=== PATIENT | male | born 1955 | race Caucasian/White ===

== ENCOUNTER 2017-10-18 11:59 | Emergency (ER) | payer BC ==
--- OUTSIDE RECORDS SUMMARY | 2017-10-18 12:55 | XMS REPORT ---
:1955 External Reference #:[id number] Author Organization [facility] Address [address] [place] [address] Phone [phone] Care Team Providers Name Role Phone HCP given Primary Care Physician Unavailable Payers Type Date Identification Numbers Payment Provider Subscriber Commercial Policy Number: [id number] López Ind/Ppo/Hmo/Pos Sabrina Salter Eliseo Group Number: KIRANUS ROSAS PPO [address] [address] PayID: [id number] TIFFANIE Villasenor [id number] Medigap Part B Effective: Policy Number: López Salter 2006 [id number] Ind/Ppo/Hmo/Pos Eliseo Expires: 2013 PayID: [id number] [address] [address] TIFFANIE Villasenor [phone] Problems Date Description Provider Status Onset: 11/13/2013 Mixed hyperlipidemia Duncan Waite D.O. Active Onset: 11/13/2013 Gastroesophageal reflux disease Duncan Waite D.O. 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 Active Onset: 07/30/2014 Anxiety state Duncan Waite D.O. Active Onset: 03/08/2015 Sacral radiculopathy Duncan Waite D.O. Active Onset: 08/20/2015 Chronic rhinitis Duncan Waite D.O. 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 Work Status Currently Working Cigarette Use Former Cigarette Smoker 30 pack year history quit 2012 ETOH Use One Beer Daily ETOH Use daily 2 glasses Recreational Drug Use Denies Drug Use Smoking Patient is a former smoker 1ppd for 20years. quit 2013 Recreational Drug Use Denies Drug Use Daily Caffeine Consumes on average 3 cups of coffee per day Daily Caffeine Consumes on average 3 sodas per day Exercise Type/Frequency Exercises regularly Sun Exposure Uses sunscreen Seat Belt/Car Seat Seat Belt Use - Yes Currently Active Patient is currently sexually active Contraceptive Methods Vasectomy Allergies, Adverse Reactions, Alerts Date Description Reaction Status Severity Comments 06/05/2006 NKDA active Medications Medication Date Status Form Strength Qnty SIG Indications Ordering Provider Omeprazole 09/[address] 40mg 1 qd MD Cl Bupropion HCL 11/27 Active Tablets ER 150mg 90tab Take 1 F17.201 Sopchak, ER (Smoking 12HR s tablet qd to Michael Song) bid for D.O. smoking cessation TUNA Oil 05/01 Active two po daily Coq10 07/29 Active Capsules 90cap 1 by mouth Mariann s every day Antionette Song Multivitamin 06/05 Active 1 po qd Unknown (OTC) Fluconazole 04/28 Hx Tablets 200mg 14tab 2 tabs day Silco s one, 1 tab Kendell, - days 2-13 M.D. 05/14 for esophageal candidiasis Amoxicillin 01/25 Hx Tablets 875mg 20tab 1 by mouth R59.0 Silcoff, s twice a day Kendell, - x 10 days M.D. 02/04 for infection Amlodipine 05/02 Hx Tablets 5mg 90tab take 1 I10 Sopchak, Besylate s tablet by Duncan, - mouth once D.O. 09/23 daily for high blood pressure Augmentin 03/10 Hx Tablets 875-125mg 20tab 1 cap by J01.01 Mariann, s mouth twice Duncan, - a day D.O. 03/20 Buspirone HCL 08/19 Hx Tablets 7.5mg 60tab 1 cap by F41.9 Sopchak, s mouth twice Duncan, - a day D.O. 09/23 Fluticasone 08/19 Hx Suspension 50mcg/Act 16uni 2 sprays J31.0 Sopchak, Propionate ts into each Duncan, - nostril D.O. 05/01 every day /2016 Benzonatate 10/29 Hx Capsules 200mg 60cap 1 by mouth J06.9 Silcoff, s three times Kendell, - a day as M.D. 03/22 needed cough /2016 Augmentin 10/29 Hx Tablets 875-125mg 20tab 1 tab twice 465.8 Ike /2014 s a day with A. - food for 10 Klepack, 11/18 days M.D. Fluticasone 07/30 Hx Suspension 50mcg/Act 1unit 2 sprays 461.0 Sopchak, Propionate s into each Duncan, - nostril D.O. 09/04 twice a day for nasal congestion. tammy allergies. rinse mouth post Amoxicillin/Cla 07/30 Hx Tablets 875-125mg 20tab 1 by mouth 461.0 Sopchak, vulanate s twice a day Duncan, Potassium - D.O. 08/09 Ativan 07/30 Hx Tablets 0.5mg 30tab take 1 F41.9 Sopchak, s tablet by Duncan, - mouth up 3 D.O. / times per day as needed for anxiety may make you drowsy Robitussin 06/29 Hx Capsules 10-200mg Sopchak, Cough+Chest /2014 Duncan, Congestion DM - D.O. 10/29 Prednisone 06/29 Hx Tablets 10mg 10tab 2 tabs for 3 466.0 Sopchak, s days then 1 Duncan, - tab for 4 D.O. 07/06 days Trazodone HCL 06/25 Hx Tablets 50mg 60tab take 1-2 327.01 Sopchak, s tablets by Duncan, - mouth daily D.O. 07/25 at bedtime for trouble sleeping Clarithromycin 06/25 Hx Tablets 500mg 20tab 1 by mouth 466.0 Sopchak, s three times Duncan, - a day x 7 D.O. 07/05 Proair HFA 06/25 Hx Aerosol 108(90Bas 8.5un 1-2 puffs 466.0 Sopchak, e) its four times a Duncan, - mcg/Act day as D.O. 07/29 needed Ambien 11/14 Hx Tablets 5mg 30tab 1-2 tab by 327.01 Sopcha s mouth every Duncan, - night as D.O. 11/14 needed Rozerem 11/13 Hx Tablets 8mg 30tab take 1 327.01 Sopchak, s tablet by Duncan, - mouth daily D.O. 11/14 at bedtime as needed for trouble sleeping Magnesium 07/30 Hx Tablets Sopchak, Duncan, - D.O. 05/01 Zypan 02/27 Hx Digestive Sopchak, enzymes for Duncan, - heartburn. D.O. 10/28 Flonase 02/27 Hx Suspension 50mcg/Act 1unit Inhale 2 461.0 s sprays into Duncan, - nostril D.O. 10/28 daily in each nostril for nose inflammation Doxycycline 02/21 Hx Tablets 100mg 20tab 1 tab po bid E906.4 Silcojodi Hyclate s x 10 Yifan Rdz M.D. 10/30 Guaifenesin/Cod 02/21 Hx Solution 100-10mg/ 100ml 1-2 tsps 786.2 Bernardacojodi ei 5ML q4-6 hrs, Yifan Rdz M.D. 10/22 Simvastatin 03/08 Hx Tablets 40mg 90tab take one E78.2 s tablet by Duncan, - mouth every D.O. 09/23 day for high /2018 cholesterol Prednisone 03/06 Hx Tablets 20mg 21tab 1 bid s - 10/30 Prilosec OTC 06/09 Hx Capsules 20mg 60cap 1 po bid 530.81 [place], /2006 gold Bennett MD - 11/05 Chantix 06/07 Hx take as 305.1 troypack Starting directed. Sherman - 01/30 Augmentin 06/07 Hx Tablets 875mg;125 20tab 1 po bid 706.2 mg s - 06/20 Prevacid 06/07 Hx Capsules 30mg 30cap 1 qd for 530.81 klepack s reflux - 06/09 Wellbutrin SR 06/05 Hx Tablets 150mg 1 tablet 305.1 orally once - A day 06/12 [place] Fatty 06/05 Hx 1 PO qd Robert Jj Yifan Baker M.D. 05/01 Medications Administered in Office Medication Date Status Form Strength Qnty SIG Indications Ordering Provider SC/Im Administered Injection Sopchak, Injections 015 Duncan, D.O. Immunizations CPT Code Status Date Vaccine Lot # [id number] Given 05/02/2016 Influenza Virus Vaccine, Quadrivalent, Split, [id number] Preservative Free [id number] Given 07/30/2014 Hep A, Adult [id number] Given 03/02/2014 Adacel or Boostrix, TDaP [id number] 76100 Given 03/02/2014 Flu, Split Virus 3Yrs [id number] 79583 Given 02/27/2013 Flu, Split Virus 3Yrs [id number] 98940 Given 06/27/2004 Td Immunization Vital Signs Date Vital Result Comment 09/24/2017 BP Systolic 180 mmHg BP Diastolic 112 mmHg Weight 212.00 lb 02/08/2017 BP Systolic 130 mmHg BP Diastolic 88 mmHg Body Temperature 98.3 F 01/25/2017 BP Systolic 150 mmHg BP Diastolic 82 mmHg Body Temperature 98.0 F states he's had fever @ night Height 70 inches 5'10" Weight 198.00 lb BMI (Body Mass Index) 28.4 kg/m2 05/02/2016 BP Systolic 145 mmHg BP Diastolic 95 mmHg Height 71.25 inches 5'11.25" with shoes Weight 209.00 lb with shoes BMI (Body Mass Index) 28.9 kg/m2 08/20/2015 BP Systolic 158 mmHg BP Diastolic 80 mmHg BP Systolic Recheck 145 mmHg recheck ra BP Diastolic Recheck 88 mmHg recheck ra Weight 204.00 lb 03/08/2015 BP Systolic 145 mmHg BP Diastolic 82 mmHg Height 71.75 inches 5'11.75" with shoes Weight 208.00 lb with shoes BMI (Body Mass Index) 28.4 kg/m2 12/04/2014 BP Systolic 139 mmHg Lrg cuff BP Diastolic 75 mmHg Lrg cuff Heart Rate 68 /min Weight 207.00 lb w/shoes 10/29/2014 BP Systolic 145 mmHg BP Diastolic 80 mmHg Weight 214.00 lb with shoes 07/30/2014 BP Systolic 152 mmHg BP Diastolic 80 mmHg Heart Rate 65 /min Height 71.5 inches 5'11.50" shoes on Weight 214.00 lb shoes on BMI (Body Mass Index) 29.4 kg/m2 06/29/2014 BP Systolic 148 mmHg BP Diastolic 82 mmHg Body Temperature 99.1 F 06/25/2014 BP Systolic 130 mmHg BP Diastolic 78 mmHg O2 % BldC Oximetry 98 % on ra Body Temperature 99.0 F Weight 214.00 lb shoes on 03/02/2014 BP Systolic 158 mmHg BP Diastolic 90 mmHg BP Systolic Recheck 155 mmHg BP Diastolic Recheck 82 mmHg Height 70.75 inches 5'10.75" Weight 207.00 lb BMI (Body Mass Index) 29.1 kg/m2 11/13/2013 BP Systolic 140 mmHg BP Diastolic 78 mmHg Height 71 inches 5'11" Weight 205.00 lb BMI (Body Mass Index) 28.6 kg/m2 02/27/2013 BP Systolic 140 mmHg BP Diastolic 90 mmHg BP Systolic Recheck 110 mmHg BP Diastolic Recheck 65 mmHg 02/21/2013 BP Systolic 155 mmHg BP Diastolic 92 mmHg Heart Rate 78 /min Body Temperature 99.2 F Height 70.50 inches 5'10.50" Weight 206.00 lb BMI (Body Mass Index) 29.1 kg/m2 01/30/2007 BP Systolic 144 mmHg BP Diastolic 94 mmHg Height 72.25 inches 6'0.25"With Boots Weight 208.00 lb BMI (Body Mass Index) 28.0 kg/m2 06/09/2006 BP Systolic 136 mmHg BP Diastolic 88 mmHg Height 72.25 inches 6'0.25"With Boots Weight 210.50 lb BMI (Body Mass Index) 28.3 kg/m2 06/07/2006 BP Systolic 126 mmHg BP Diastolic 80 mmHg Height 72.25 inches 6'0.25"With Boots Weight 212.00 lb BMI (Body Mass Index) 28.6 kg/m2 06/05/2006 BP Systolic 140 mmHg BP Diastolic 94 mmHg Height 72.25 inches 6'0.25"With Boots Weight 209.50 lb With Boots BMI (Body Mass Index) 28.2 kg/m2 Results Test Date Test Result H/L Range Note Laboratory test 09/14/2017 Surgical Interface SEE RESULT BELOW 1 finding Order Laboratory test 04/24/2017 Surgical Interface SEE RESULT BELOW 2, 3 finding Order Lipid Profile 02/08/2017 Triglycerides 159 mg/dL 4 (Trig/Chol/HDL) Cholesterol 228 mg/dL 5 HDL Cholesterol 54.6 mg/dL 6 LDL Cholesterol 142 mg/dL 7 CBC Auto Diff 02/08/2017 White Blood Count 10.1 10^3/uL 3.5-10.8 Red Blood Count 4.39 10^6/uL 4.0-5.4 Hemoglobin 14.3 g/dL 14.0-18.0 Hematocrit 42 % 42-52 Mean Corpuscular Volume 96 fL High 80-94 Mean Corpuscular Hemoglobin 33 pg High 27-31 Mean Corpuscular HGB Conc 34 g/dL 31-36 Red Cell Distribution Width 13 % 10.5-15 Platelet Count 249 10^3/uL 150-450 Mean Platelet Volume 8 um3 7.4-10.4 Abs Neutrophils 7.1 10^3/uL 1.5-7.7 Abs Lymphocytes 2.0 10^3/uL 1.0-4.8 Abs Monocytes 0.8 10^3/uL 0-0.8 Abs Eosinophils 0.1 10^3/uL 0-0.6 Abs Basophils 0.1 10^3/uL 0-0.2 Abs Nucleated RBC 0.01 10^3/uL Granulocyte % 69.9 % 38-83 Lymphocyte % 19.3 % Low 25-47 Monocyte % 8.3 % 1-9 Eosinophil % 1.3 % 0-6 Basophil % 1.2 % 0-2 Nucleated Red Blood Cells % 0.1 Comp Metabolic Panel 02/08/2017 Sodium 136 mmol/L 133-145 Potassium 4.3 mmol/L 3.5-5.0 Chloride 102 mmol/L 101-111 Co2 Carbon Dioxide 29 mmol/L 22-32 Anion Gap 5 mmol/L 2-11 Glucose 103 mg/dL High 70-100 Blood Urea Nitrogen 11 mg/dL 6-24 Creatinine 0.95 mg/dL 0.67-1.17 BUN/Creatinine Ratio 11.6 8-20 Calcium 9.3 mg/dL 8.6-10.3 Total Protein 6.7 g/dL 6.4-8.9 Albumin 4.2 g/dL 3.2-5.2 Globulin 2.5 g/dL 2-4 Albumin/Globulin Ratio 1.7 1-3 Total Bilirubin 0.50 mg/dL 0.2-1.0 Alkaline Phosphatase 67 U/L 34-104 Alt 23 U/L 7-52 Ast 20 U/L 13-39 Egfr Non- 80.6 >60 Egfr 103.7 >60 8 Laboratory test finding 02/08/2017 TSH (Thyroid Stim Horm) 1.62 mcIU/mL 0.34-5.60 CBC Auto Diff 08/16/2015 White Blood Count 8.4 10^3/uL 3.5-10.8 Red Blood Count 4.44 10^6/uL 4.0-5.4 Hemoglobin 14.2 g/dL 14.0-18.0 Hematocrit 42 % 42-52 Mean Corpuscular Volume 94 fL 80-94 Mean Corpuscular Hemoglobin 32 pg High 27-31 Mean Corpuscular HGB Conc 34 g/dL 31-36 Red Cell Distribution Width 13 % 10.5-15 Platelet Count 232 10^3/uL 150-450 Mean Platelet Volume 8 um3 7.4-10.4 Abs Neutrophils 5.8 10^3/uL 1.5-7.7 Abs Lymphocytes 1.8 10^3/uL 1.0-4.8 Abs Monocytes 0.6 10^3/uL 0-0.8 Abs Eosinophils 0.1 10^3/uL 0-0.6 Abs Basophils 0.1 10^3/uL 0-0.2 Abs Nucleated RBC 0 10^3/uL Granulocyte % 69.8 % 38-83 Lymphocyte % 21.0 % Low 25-47 Monocyte % 7.5 % 1-9 Eosinophil % 1.0 % 0-6 Basophil % 0.7 % 0-2 Nucleated Red Blood Cells % 0 Comp Metabolic Panel 08/16/2015 Sodium 139 mmol/L 133-145 Potassium 4.0 mmol/L 3.5-5.0 Chloride 104 mmol/L 101-111 Co2 Carbon Dioxide 29 mmol/L 22-32 Anion Gap 6 mmol/L 2-11 Glucose 126 mg/dL High 70-100 Blood Urea Nitrogen 11 mg/dL 6-24 Creatinine 1.01 mg/dL 0.67-1.17 BUN/Creatinine Ratio 10.9 8-20 Calcium 9.3 mg/dL 8.6-10.3 Total Protein 6.3 g/dL Low 6.4-8.9 Albumin 4.2 g/dL 3.2-5.2 Globulin 2.1 g/dL 2-4 Albumin/Globulin Ratio 2.0 1-3 Total Bilirubin 0.30 mg/dL 0.2-1.0 Alkaline Phosphatase 57 U/L 34-104 Alt 30 U/L 7-52 Ast 20 U/L 13-39 Egfr Non- 75.4 >60 Egfr 96.9 >60 9 Laboratory test finding 08/16/2015 Hepatitis C Antibody Nonreactive Nonreactive 10 Lipid Profile 08/16/2015 Triglycerides 141 mg/dL 11 (Trig/Chol/HDL) Cholesterol 226 mg/dL 12 HDL Cholesterol 43.2 mg/dL 13 LDL Cholesterol 155 mg/dL 14 Laboratory test 08/16/2015 TSH (Thyroid Stim Horm) 1.43 ?IU/mL 0.34-5.60 15 finding Lipid Profile 11/11/2013 Triglycerides 108 mg/dL 16, 17 (Trig/Chol/HDL) Cholesterol 211 mg/dL 16, 18 HDL Cholesterol 46.3 mg/dL 16, 19 LDL Cholesterol 143 mg/dL 16, 20 Surgical Pathology 07/02/2006 Surgical Pathology <SEE 21 NOTE> Laboratory test 06/19/2006 TSH 1.26 MIU/ML 0.34-5.6 finding 0 Comp Metabolic 06/19/2006 One Over 1.11 Panel Creatinine Anion Gap 7.0 mmol/L 2-11 22 Albumin/Globulin Ratio 1.8 1-3 Albumin 4.2 GM/DL 3.6-5.4 Alkaline Phosphatase 61 U/L 39-117 Alt (SGPT) 48 U/L 17-63 Ast (Sgot) 33 U/L 12-42 BUN 9 mg/dL 6-24 Calcium 9.7 mg/dL 8.7-10.2 Chloride 102 mmol/L 101-111 Co2 (Carbon Dioxide) 31.0 mmol/L 22-32 Globulin 2.4 GM/DL 2-4 Glucose 109 mg/dL High 70-105 Potassium 3.8 mmol/L 3.5-5.0 Sodium 140 mmol/L 135-145 Bilirubin Total 0.7 mg/dL 0.4-1.5 Total Protein 6.6 GM/DL 6.2-8.1 BUN/Creatinine Ratio 10.0 8-20 Creatinine 0.9 mg/dL 0.5-1.4 CBC With Manual Diff 06/19/2006 RBC Morphology NORMAL White Blood Count 9.4 CUMM 4.8-10.8 Absolute Neutrophil Count 7.0 Hematocrit 43 % 42-52 Hemoglobin 14.6 g/dL 14.0-18.0 Eosenophil 1 % 0-6 Lymphocyte 17 % 5-47 Mean Corpuscular HGB Cone 34 g/dL 32-36 Mean Corpuscular Hemoglob 31 pg 27-31 Mean Corpuscular Volume 92 um3 80-94 Monocyte 7 % 0-13 Mean Platelet Volume 7.2 um3 Low 7.4-10.4 Platelet Count 273 CUMM 150-450 Polysegmented Neutrophil 75 % 38-83 Red Cell Count 4.73 CUMM 4.6-6.2 Redcell Distribution WDTH 12 % 10.5-15 Lead 06/19/2006 Lead 1.2 g/dL 0-25.0 23 Lead Specimen Type VENOUS Laboratory test 06/12/2006 PSA Screening 0.94 NG/ML 0.01-4.0 24, 25 finding Lipid Profile 06/12/2006 Cholesterol/HDL 6.66 AVERAGE High 1-4.97 24 (Trig/Chol/HDL) Ratio Cholesterol 253 mg/dL High Less Than 200 24, 26 Triglyceride 184 mg/dL 40-200 24 High Density Lipoprotein 38 mg/dL Low 40-60 24, 27 Low Density Lipoprotein 178 mg/dL High Less Than 100 24, 28 Laboratory test finding 06/08/2006 Culture Sensitivity MANY [COAG NEG S < SEE 29 NOTE> 1 SEE RESULT BELOW Name: JOHNATHON GOMES : [address]: Cl Nicolas MD Acct: [id number] Unit: [id number] AGE: 62 Location: ENDO Re09/14/17 SEX: M Status: DEP REF SPEC: [id number] NIKOLAY: 09/14/17-45 [facility] DR: Cl Nicolas MD REQ: [id number] RECD: 09/14/17 STATUS: TATE MASTERS DR: Karyna Tavares PA _ ORDERED: LEVEL 4 FINAL DIAGNOSIS Gastroesophageal junction, biopsy: -- Squamous and columnar mucosa with chronic inflammation and intestinal metaplasia. -- Dysplasia is absent. POST-OPERATIVE DIAGNOSIS EGD: esophagus ? improved erosive esophagitis ? biopsies x3; gastric ? normal ; duodenum ? normal GROSS DESCRIPTION The specimen is received in formalin labeled, GE Junction Biopsies, and consists of two acharya-pink irregular soft tissue fragments measuring 0.2 x 0.1 x 0.1 cm and 0.3 x 0.3 x 0.2 cm which are submitted entirely in one cassette. Signed by and Reported on: Geri Villanueva MD 09/18/17 1025 END OF REPORT DEPARTMENT OF PATHOLOGY, [address] [place] [address] Ronald Lorenzana M.D. Director [facility] # [id number] 2 [id number] Pt of [place], referral ordered by [place], pt has apt 05/03/17. SL 3 SEE RESULT BELOW Name: JOHNATHON GOMES : [address]: Cl Nicolas MD Acct: [id number] Unit: [id number] AGE: 62 Location: [facility] Re04/24/17 SEX: M Status: DEP REF SPEC: [id number] NIKOLAY: 04/24/17-1520 [facility] DR: Cl Nicolas MD REQ: [id number] RECD: 04/25/17-1153 STATUS: TATE MASTERS DR: Duncan Waite DO _ ORDERED: LEVEL 4 COMMENTS: [id number] FINAL DIAGNOSIS Gastroesophageal junction, biopsy: -- Benign squamous mucosa with mild erosive changes and yeast forms, compatible with Bridget. CLINICAL HISTORY Gastroesophageal reflux disease POST-OPERATIVE DIAGNOSIS Esophagus ? Grade B/C erosive esophagitis biopsied, large hiatal hernia; stomach and duodenum ? normal. Conclusions/Plan: Start proton pump inhibitor GROSS DESCRIPTION The specimen is received in formalin labeled, Biopsies GE Junction, and consists of a 0.7 x 0.3 x 0.2 cm acharya-white irregular soft tissue fragment. No other tissue is identified within the container. Entirely submitted, one cassette. Signed (signature on file) Geri Villanueva MD 08/08 1149 END OF REPORT * ML=Testing performed at Main Lab DEPARTMENT OF PATHOLOGY, [address] [place] [address] Ronald Lorenzana M.D. Director [facility] # [id number] 4 Desirable: <150 Borderline High: 150-199 High: 200-499 Very High: >500 5 Desirable: <200 Borderline High: 200-239 High: >239 6 Low: <40 Desirable: 40-60 High: >60 7 Desirable: <100 Near Optimal: 100-129 Borderline High: 130-159 High: 160-189 Very High: >189 8 Because ethnic data is not always readily available, this report includes an eGFR for both -Americans and non- Americans. The National Kidney Disease Education Program (NKDEP) does not endorse the use of the MDRD equation for patients that are not between the ages of 18 and 70, are , have extremes of body size, muscle mass, or nutritional status, or are non- or non-. According to the National Kidney Foundation, irrespective of diagnosis, the stage of the disease is based on the level of kidney function: Stage Description GFR(mL/min/1.73 m(2)) 1 Kidney damage with normal or decreased GFR 90 2 Kidney damage with mild decrease in GFR 60-89 3 Moderate decrease in GFR 30-59 4 Severe decrease in GFR 15-29 5 Kidney failure <15 (or dialysis) 9 Because ethnic data is not always readily available, this report includes an eGFR for both -Americans and non- Americans. The National Kidney Disease Education Program (NKDEP) does not endorse the use of the MDRD equation for patients that are not between the ages of 18 and 70, are , have extremes of body size, muscle mass, or nutritional status, or are non- or non-. According to the National Kidney Foundation, irrespective of diagnosis, the stage of the disease is based on the level of kidney function: Stage Description GFR(mL/min/1.73 m(2)) 1 Kidney damage with normal or decreased GFR 90 2 Kidney damage with mild decrease in GFR 60-89 3 Moderate decrease in GFR 30-59 4 Severe decrease in GFR 15-29 5 Kidney failure <15 (or dialysis) 10 FASTING 11 Desirable <150 Borderline high 150-199 High 200-499 Very High >500 12 Desirable <200 Borderline high 200-239 High >239 13 Low <40 Desirable: 40-60 High: >60 14 Desirable: <100 mg/dL Near Optimal: 100-129 mg/dL Borderline High: 130-159 mg/dL High: 160-189 mg/dL Very High: >189 mg/dL 15 FASTING 16 PT IS FASTING 17 Desirable <150 Borderline high 150-199 High 200-499 Very High >500 18 Desirable <200 Borderline high 200-239 High >239 19 Low <40 Desirable: 40-60 High: >60 20 Desirable <100 Near Optimal 100-129 Borderline high 130-159 High 160-189 Very High >189 21 ---- RUN DATE: 07/03/06 [facility] LIVE PAGE 1 RUN TIME: 1414 Specimen Inquiry RUN USER: INTERFACE [id number] JOHNATHON GOMES/Santhosh <REG REF 07/02> ([id number]) Lucia Gordillo MD -- Specimen: [id number] Spec Date: 07/02/[address]: Cl puente MD Spec Type: SURGICAL P Received: 07/02/06-1315 Copies to: Thai Wyatt DO SPECIMEN 1) ESOPHAGOGASTRIC JUNCTION BIOPSY 2) COLON POLYP AT 25 CM. HISTORY CLINICAL INFORMATION: Patient for screening colonoscopy with negative fam lidia history of colon cancer or polyps with history of chronic gastroesophageal refl ux disease GROSS DESCRIPTION 1) The specimen is received in formalin labelled Johnathon Thai Gomes, Biopsy EG Junction, and consists of soft acharya tissue fragment measuring 0.5 x 0.2 x 0.1 cm. Submitted entirely, one cassette. 2) The specimen is received in formalin labelled Johnathon Gomes, Colon Polyp at 25 cm., and consists of a acharya, soft tissue fragment measuring 0.3 x 0.2 x 0.2 cm. Submitted entirely, one cassette. DIAGNOSIS 1) Esophagogastric junction, biopsy - A) Squamous mucosa with features of mild reflux esophagitis. B) No glandular component identified. 2) Colon, polyp at 25 cm., biopsy - Hyperplastic polyp. Signed Electronically by: RONALD LORENZANA MD 07/03/06 -- -- DEPARTMENT OF PATHOLOGY, [address] [place] [address], [place] [address] [facility] Permit #[id number] Ike Shultz II, M.D. Director Ronald Lorenzana M.D. Housekeeping Room Attendant D irector -- 22 Anion gap measurement may be of limited value in the presence of any alkalosis, especially in a combined acid base disorder. . 23 REFERENCE RANGE FOR CHILDREN LESS THAN 6 YRS OF AGE: CDC CLASS* BLOOD LEAD CONCENTRATION (MCG/DL) I LESS THAN OR EQUAL TO 9 IIA 10 - 14 IIB 15 - 19 III 20 - 44 IV 45 - 69 V GREATER THAN OR EQUAL TO 70 *REFER TO CURRENT CDC GUIDELINES FOR COMMENTS AND INTERVENTIONS RECOMMENDED FOR EACH CLASS. CERTIFICATE OF BLOOD LEAD TESTING THIS IS TO CERTIFY THAT THE ABOVE NAMED PATIENT HAS BEEN TESTED FOR BLOOD LEAD. TESTING WAS PERFORMED BY [facility] WHICH IS LICENSED BY [facility] TO PERFORM BLOOD LEAD TESTING. THIS CERTIFICATE IS PROVIDED A SERVICE TO OUR CLIENTS AND THEIR PATIENTS WHO MAY BE REQUIRED TO PRODUCE DOCUMENTATION OF BLOOD LEAD TESTING. . 24 FASTING 25 * SERUM LEVELS OF PSA MEASURED USING THE NATE MARIANO ACCESS HYBRITECH IMMUNOASSAY SHOULD NOT BE INTERPRETED ABSOLUTE EVIDENCE OF THE PRESENCE OR ABSENCE OF DISEASE. THE PSA VALUE SHOULD BE USED IN CONJUNCTION WITH OTHER PERTINENT CLINICAL DIAGNOSTIC PROCEDURES. 26 Classification: High . 27 Classification: Low . 28 CALCULATED LDL APPROXIMATES THE VALUE OF A DIRECT LDL MEASUREMENT. Classification: High . 29 MANY [COAG NEG STAPHYLOCOCCUS] - MULTIPLE VARIANTS; NO FURTHER WORKUP COAG NEG STAPHYLOCOCCUS Procedures Date CPT Code Description Status 06/29/2014 09056 SC/Im Injections Completed 05/24/2012 Colonoscopy Completed 01/30/2007 08229 Bronchospasm Evaluation Pre & Post Completed 01/30/2007 87980 Bronchospasm Evaluation Pre & Post Completed 06/20/2006 26979 Excise Benign Lesion 1.1-2CM Trunk/Arm/Leg Completed 06/15/2006 28347 X-Ray Chest Two Views Completed 06/07/2006 99656 Remove Impact Cerumen Requiring Instrument, Unilateral Completed 06/05/2006 52770 I & D Abscess Simple Completed Encounters Type Date Location Provider CPT E/M Dx Office Visit 09/24/2017 10:20a Main Office Kia Brantley.A. 48300 M79.605 M54.5 I10 Office Visit 02/08/2017 8:40a Main Office Kia Brantley.AIdalia 17667 R59.0 R11.2 J32.9 G47.01 F17.201 E78.00 Office Visit 01/25/2017 3:00p Main Office Kia Brantley.A. 74048 J01.90 R59.0 B30.9 I10 Office Visit 05/02/2016 8:55a Main Office Duncan Waite D.O. 32914 I10 Z00.01 Z23 Z41.8 Office Visit 08/20/2015 10:45a Main Office Duncan Waite D.O. 68678 F41.9 G47.01 K21.9 J31.0 Office Visit 03/08/2015 9:45a Main Office Duncan Waite D.O. 43085 F41.9 G47.01 E78.2 K21.9 Z00.01 M54.18 Office Visit 12/04/2014 9:15a Main Office Duncan Waite D.O. 30459 300.00 327.01 272.2 530.81 461.0 Office Visit 10/29/2014 9:00a Main Office Ema Womack RPA-Soren 45927 465.8 473.8 528.9 Office Visit 07/30/2014 8:30a Main Office Duncan Waite D.O. 39236 327.01 272.2 530.81 786.2 461.0 300.00 v05.3 v07.2 Office Visit 06/29/2014 1:15p Main Office Duncan Waite D.O. 69185 466.0 Office Visit 06/25/2014 12:55p Main Office Duncan Waite D.O. 26621 327.01 272.2 466.0 786.2 Office Visit 03/02/2014 9:45a Main Office Duncan Waite D.O. 48242 272.2 V70.0 V06.1 V04.81 V07.2 V76.44 Office Visit 11/13/2013 8:45a Main Office Duncan Waite D.O. 24712 272.2 530.81 719.42 327.01 Office Visit 02/27/2013 10:30a Main Office Duncan Waite D.O. 24174 E906.4 461.0 272.2 V04.81 V07.2 V70.0 Office Visit 02/21/2013 3:20p Main Office Harinder Brantley 80624 461.9 786.2 E906.4 780.60 Office Visit 01/30/2007 10:45a [place] [address] 519.11 519.11 519.11 519.11 Office Visit 06/20/2006 11:30a Main Office klemei 49784 706.2 Office Visit 06/15/2006 11:00a Main Office vincenzo 77237 530.81 706.2 305.1 272.8 780.8 Office Visit 06/09/2006 9:15a [place] [address] 530.81 706.2 Office Visit 06/07/2006 3:15p Main Office klemei 57454 305.1 600.00 V76.51 V77.91 380.4 Office Visit 06/05/2006 2:45p Main Office Kendell Jj M.D. 05929 706.2 796.2 305.1 Plan of Care Future Appointment(s):10/11/2017 9:00 am - Duncan Waite D.O. at Main Huhvmf4709/24/2017 - Harinder BrantleyM79.605 Pain in left legNew Xrays:X-Ray, Hips, 2 View With Pelvis - LeftX-Ray, Knee, Left, 4 Or More ViewsDoppler US, Venous, Lower Extremity, LeftComments:Biggest concern is that pt has DVT.M54.5 Low back painComments:Origin of pain is not clear.I10 Essential (primary) hypertensionComments:pt advised to report cp, change in angina , sob etContinue same meds with no change. Comply with diet and exercise. Lose weight and watch salt in diet. elevated reading today possibly due to pain
--- OUTSIDE RECORDS SUMMARY | 2017-10-18 12:55 | XMS REPORT ---
:1955 External Reference #:[id number] Author Organization [facility] Address [address] [place] [address] Phone [phone] Care Team Providers Name Role Phone HCP given Primary Care Physician Unavailable Payers Type Date Identification Numbers Payment Provider Subscriber Commercial Policy Number: [id number] Freedom Ind/Ppo/Hmo/Pos Sabrina Salter Eliseo Group Number: FREEDOM ROSAS PPO [address] [address] PayID: [id number] [place] [address] Medigap Part B Effective: Policy Number: Freedom Salter 2006 [id number] Ind/Ppo/Hmo/Pos Eliseo Expires: 2013 PayID: [id number] [address] [address] [place] [address] Problems Date Description Provider Status Onset: 11/13/2013 [...] 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 Work Status Currently Working Cigarette Use Former Cigarette Smoker 30 pack year history quit 2012 ETOH Use One Beer Daily ETOH Use daily 2 glasses recently having 2 rums daily. Recreational Drug Use Denies Drug Use Smoking [...] Form Strength Qnty SIG Indications Ordering Provider Colcrys 10/05 Active Tablets 0.6mg 60tab take 2 s immediately Duncan, then 1 1 D.O. hour later. then next day take 1 twice a day. Ibuprofen 10/04 Active Tablets 200mg as needed Omeprazole 09/[address] 40mg 1 qd MD Cl Bupropion HCL 11/27 Active Tablets ER 150mg 90tab Take 1 F17.201 Sopnayek, ER ( 12HR s tablet qd to Michael Song) bid for D.O. smoking cessation TUNA Oil 05/01 Active two po daily Coq10 07/29 Active Capsules 90cap 1 by mouth Sopchak s every day Jeremie SongOIdalia Multivitamin 06/05 Active 1 po qd Unknown (OTC) Fluconazole 04/28 Hx Tablets 200mg 14tab 2 tabs day Silcoff, s one, 1 tab Kendell, - days 2-13 M.D. 05/14 esophageal candidiasis Amoxicillin 01/25 Hx Tablets 875mg 20tab 1 by mouth R59.0 Silcoff, s twice a day Kendell, - x 10 days M.D. 10/15 for sinus /2016 infection Amlodipine 05/02 Hx Tablets 5mg 90tab take 1 I10 Sopchak, Besylate s tablet by Duncan, - mouth once D.O. 09/23 daily for high blood pressure Augmentin 03/10 Hx Tablets 875-125mg 20tab 1 cap by J01.01 Sopchak, s mouth twice Duncan, - a day D.O. 03/20 Buspirone HCL 08/19 Hx Tablets 7.5mg 60tab 1 cap by F41.9 Sopchak, s mouth twice Duncan, - a day D.O. 09/23 Fluticasone 08/19 Hx Suspension 50mcg/Act 16uni 2 sprays J31.0 Sopchak, Propionate ts into each Duncan, - nostril D.O. 05/01 every Benzonatate 10/29 Hx Capsules 200mg 60cap 1 by mouth J06.9 Silcoff, s three times Kendell, - a day as M.D. 03/22 needed cough Augmentin 10/29 Hx Tablets 875-125mg 20tab 1 tab twice 465.8 Ike /2015 s a day with A. - food [...] by Duncan, - mouth up 3 D.O. 04/28 times per day as needed for anxiety may make you drowsy Robitussin 06/29 Hx Capsules 10-200mg Sopchak, Cough+Chest Duncan, Congestion DM - D.O. 10/29 Prednisone 06/29 Hx Tablets 10mg 10tab 2 tabs for 3 466.0 Sopchak, s days then 1 Duncan, - tab for 4 D.O. Trazodone HCL 06/25 Hx Tablets 50mg 60tab take 1-2 327.01 Sopchak, s tablets by Duncan, - mouth daily D.O. 07/25 at bedtime for trouble sleeping Clarithromycin 06/25 Hx Tablets 500mg 20tab 1 by mouth 466.0 Sopchak, s three times Duncan, - a day x 7 D.O. 07/05 Proair HFA 06/25 Hx Aerosol 108(90Bas 8.5un 1-2 puffs 466.0 [facility] its four times a Duncan, - mcg/Act day as D.O. 07/29 needed Ambien 11/14 Hx Tablets 5mg 30tab 1-2 tab by 327.01 [facility], s mouth every Duncan, - night as D.O. 11/14 needed Rozerem 11/13 Hx Tablets 8mg 30tab take 1 327.01 Sopcha, s tablet by Duncan, - mouth daily D.O. 11/14 at bedtime as needed for trouble sleeping Magnesium 07/30 [facility], - [facility]. 05/01 Zypan 02/27 Hx Digestive enzymes for Duncan, - heartburn. D.O. 10/28 Flonase 02/27 Hx Suspension 50mcg/Act 1unit Inhale 2 461.0 [facility] sprays into Duncan, - nostril D.O. 10/28 daily in each nostril for nose inflammation Doxycycline 02/21 Hx Tablets 100mg 20tab 1 tab po bid E906.4 SilcoTerry zapataclate s x 10 Yifan Rdz M.D. 10/30 Guaifenesin/Cod 02/21 Hx Solution 100-10mg/ 100ml 1-2 tsps 786.2 Анна ei 5ML q4-6 hrs, Yifan Rdz M.D. 10/22 Simvastatin 03/08 Hx Tablets 40mg 90tab take one E78.2 Sopnayek, s tablet by Duncan, - mouth every D.O. 09/23 day for high /2018 cholesterol Prednisone 03/06 Hx Tablets 20mg 21tab 1 bid s - 10/30 Prilosec OTC 06/09 Hx Capsules 20mg 60cap 1 po bid 530.81 [place], gold Bennett MD - 11/05 Chantix 06/07 Hx take as 305.1 klepack Starting directed. Sherman - 01/30 Augmentin 06/07 Hx Tablets 875mg;125 20tab 1 po bid 706.2 mg s - 06/20 Prevacid 06/07 Hx Capsules 30mg 30cap 1 qd for 530.81 pa s reflux - 06/09 Wellbutrin SR 06/05 Hx Tablets 150mg 1 tablet 305.1 orally once - A day 06/12 [place] Fatty 06/05 Hx 1 PO qd Bernardacojodi, Acids Yifan Rdz M.D. 05/01 Medications Administered in Office Medication Date Status Form Strength Qnty SIG Indications Ordering Provider injection, Administered Injection Sopchak, kenalog, 10 mg 018 Duncan, D.O. SC/Im Administered Injection Sopchak, Injections 015 Duncan, D.O. Immunizations CPT Code Status Date Vaccine Lot # [id number] Given 05/02/2016 Influenza Virus Vaccine, Quadrivalent, Split, [id number] Preservative Free [id number] Given 07/30/2014 Hep A, Adult [id number] 89790 Given 03/02/2014 Adacel or Boostrix, TDaP [id number] 93653 Given 03/02/2014 Flu, Split Virus 3Yrs [id number] 53985 Given 02/27/2013 Flu, Split Virus 3Yrs [id number] Given 06/27/2004 Td Immunization Vital Signs Date Vital Result Comment 10/05/2017 BP Systolic 168 mmHg BP Diastolic 86 mmHg Weight 212.00 lb Per pt 09/24/2017 BP Systolic 180 mmHg BP Diastolic [...] Test Result H/L Range Note Laboratory test finding 10/05/2017 Uric Acid 5.5 mg/dL 4.4-7.6 Vitamin B12 348 pg/mL 180-914 1 Magnesium 2.1 mg/dL 1.9-2.7 TSH (Thyroid Stim Horm) 1.07 mcIU/mL 0.34-5.60 Laboratory test finding 10/05/2017 Body Fluid Crystals None Seen None Seen 2 Body Fluid Culture Bottles <pending> Gram Stain SEE RESULT BELOW 3 Laboratory test finding 10/02/2017 D Dimer Quantitative 201 ng/mL Less Than 230 4 Blood Urea Nitrogen BUN 9 mg/dL 6-24 Creatine Kinase 102 U/L 10-223 C Reactive Protein 14.81 mg/L High < 5.00 5 CBC Auto Diff 10/02/2017 White Blood Count 10.4 10^3/uL 3.5-10.8 Red Blood Count 4.43 10^6/uL 4.00-5.40 Hemoglobin 14.3 g/dL 14.0-18.0 Hematocrit 42 % 42-52 Mean Corpuscular Volume 95 fL High 80-94 Mean Corpuscular Hemoglobin 32 pg High 27-31 Mean Corpuscular HGB Conc 34 g/dL 31-36 Red Cell Distribution Width 14 % 10.5-15 Platelet Count 246 10^3/uL 150-450 Mean Platelet Volume 7.5 um3 7.4-10.4 Abs Neutrophils 7.4 10^3/uL 1.5-7.7 Abs Lymphocytes 1.9 10^3/uL 1.0-4.8 Abs Monocytes 0.9 10^3/uL High 0-0.8 Abs Eosinophils 0.1 10^3/uL 0-0.6 Abs Basophils 0.1 10^3/uL 0-0.2 Abs Nucleated RBC 0 10^3/uL Granulocyte % 70.8 % 38-83 Lymphocyte % 18.6 % Low 25-47 Monocyte % 8.6 % High 0-7 Eosinophil % 1.3 % 0-6 Basophil % 0.7 % 0-2 Nucleated Red Blood Cells % 0.1 Laboratory test finding 10/02/2017 Erythrocyte Sed Rate 25 mm/Hr High 0- 20 Lyme Western Blot 10/02/2017 Lyme Disease IgG Ab WB Negative Negative Lyme Disease IgG Bands Present p66,p41 kDa Lyme Disease IgM Ab WB Negative Negative Lyme Disease IgM Bands Present No bands detecte <SEE NOTE> kDa 6 Lyme Disease Interpretation See Comment 7 CBC Auto Diff 09/28/2017 White Blood Count 9.3 10^3/uL 3.5-10.8 Red Blood Count 4.35 10^6/uL 4.0-5.4 Hemoglobin 14.3 g/dL 14.0-18.0 Hematocrit 41 % Low 42-52 Mean Corpuscular Volume 94 fL 80-94 Mean Corpuscular Hemoglobin 33 pg High 27-31 Mean Corpuscular HGB Conc 35 g/dL 31-36 Red Cell Distribution Width 13 % 10.5-15 Platelet Count 254 10^3/uL 150-450 Mean Platelet Volume 7.6 um3 7.4-10.4 Abs Neutrophils 6.3 10^3/uL 1.5-7.7 Abs Lymphocytes 2.1 10^3/uL 1.0-4.8 Abs Monocytes 0.8 10^3/uL 0-0.8 Abs Eosinophils 0.1 10^3/uL 0-0.6 Abs Basophils 0 10^3/uL 0-0.2 Abs Nucleated RBC 0 10^3/uL Granulocyte % 67.7 % 38-83 Lymphocyte % 22.4 % Low 25-47 Monocyte % 8.1 % High 0-7 Eosinophil % 1.4 % 0-6 Basophil % 0.4 % 0-2 Nucleated Red Blood Cells % 0 Laboratory test 09/28/2017 Erythrocyte Sed Rate 20 mm/Hr 0-20 finding Laboratory test 09/14/2017 Surgical Interface Order SEE RESULT BELOW 8 finding Laboratory test 04/24/2017 Surgical Interface Order SEE RESULT BELOW 9 , 10 finding Lipid Profile 02/08/2017 Triglycerides 159 mg/dL 11 (Trig/Chol/HDL) Cholesterol 228 mg/dL 12 HDL Cholesterol 54.6 mg/dL 13 LDL Cholesterol 142 mg/dL 14 CBC Auto Diff 02/08/2017 White Blood Count [...] Egfr Non- 80.6 >60 Egfr 103.7 >60 15 Laboratory test 02/08/2017 TSH (Thyroid Stim Horm) 1.62 mcIU/mL 0.34- 5.60 finding Laboratory test 08/16/2015 TSH (Thyroid Stim Horm) 1.43 ?IU/mL 0.34-5.60 16 finding Lipid Profile 08/16/2015 Triglycerides 141 mg/dL 17 (Trig/Chol/HDL) Cholesterol 226 mg/dL 18 HDL Cholesterol 43.2 mg/dL 19 LDL Cholesterol 155 mg/dL 20 Laboratory test finding 08/16/2015 Hepatitis C Antibody Nonreactive Nonreactive 21 CBC Auto Diff 08/16/2015 White Blood Count [...] Egfr Non- 75.4 >60 Egfr 96.9 >60 22 Lipid Profile (Trig/Chol/HDL) 11/11/2013 Triglycerides 108 mg/dL 23, 24 Cholesterol 211 mg/dL 23, 25 HDL Cholesterol 46.3 mg/dL 23, 26 LDL Cholesterol 143 mg/dL 23, 27 Surgical Pathology 07/02/2006 Surgical Pathology <SEE 28 NOTE> Laboratory test 06/19/2006 TSH 1.26 MIU/ML 0.34-5.6 finding 0 Comp Metabolic 06/19/2006 One Over 1.11 Panel Creatinine Anion Gap 7.0 mmol/L 2-11 29 Albumin/Globulin Ratio 1.8 1-3 Albumin 4.2 GM/DL [...] 10.5-15 Lead 06/19/2006 Lead 1.2 g/dL 0-25.0 30 Lead Specimen Type VENOUS Laboratory test 06/12/2006 PSA Screening 0.94 NG/ML 0.01-4.0 31, 32 finding Lipid Profile 06/12/2006 Cholesterol/HDL 6.66 AVERAGE High 1-4.97 31 (Trig/Chol/HDL) Ratio Cholesterol 253 mg/dL High Less Than 200 31, 33 Triglyceride 184 mg/dL 40-200 31 High Density Lipoprotein 38 mg/dL Low 40-60 31, 34 Low Density Lipoprotein 178 mg/dL High Less Than 100 31, 35 Laboratory test finding 06/08/2006 Culture Sensitivity MANY [COAG NEG S < SEE 36 NOTE> 1 Normal Range 180 to 914 Indeterminate Range 145 to 180 Deficient Range <145 2 [id number] What is the body fluid source?: Synovial (Joint) Fluid 3 SEE RESULT BELOW Name: JOHNATHON GOMES: [address]: Duncan Waite DO Acct: [id number] Unit: [id number] AGE: 62 Location: [facility] Re10/05/17 SEX: M Status: REG REF SPEC: [id number] NIKOLAY: 10/05/17-[address] [facility] [address]: Duncan Waite DO REQ: [id number] RECD: 10/05/17 STATUS: COMP _ SOURCE: BODY FLUID SPDESC: ORDERED: Gram Stain COMMENTS: L KNEE SYNOVIAL FLUID Procedure Result Reported Site Gram Stain Final 10/05/17- 1533 ML 3+ Neutrophils 3+ Nucleated Cells No Organisms Seen BY CYSOSPIN SMEAR * ML - Main Lab . END OF REPORT DEPARTMENT OF PATHOLOGY, [address] [place] [address] Ronald Lorenzana M.D. Director [facility] # [id number] Please note: The following may produce a false positive D Dimer test: - Rheumatoid factor greater than 60 IU/ml - Plasma hemoglobin greater than 0.05 gm/dl - Bilirubin greater than 50 mg/dl - Lipids greater than 1000 mg/dl - FDP greater than 20 ug/ml 5 Acute inflammation: >10.00 6 No bands detected 7 Specific serologic response to B. burgdorferi infection is not detected, but cannot rule out early infection during which low or undetectable antibody levels to B. burgdorferi may be present. If clinically indicated, a new serum specimen should be submitted in 7-14 days. ADDITIONAL INFORMATION CDC criteria require >=5 bands for IgG or >=2 bands for IgM for the Immunoblot to be considered positive. Bands (e.g.,p41) may be detected in patients without Lyme disease, and patterns not meeting the CDC criteria should be interpreted with caution. Immunoblot should be ordered only on specimens that are positive or equivocal by a FDA-licensed Lyme disease antibody screening test (e.g., EIA). Test Performed by: [facility] [address] [place] [id number] 8 SEE RESULT BELOW Name: JOHNATHON GOMES : [address]: Cl Nicolas MD Acct: [id number] Unit: [id number] AGE: 62 Location: ENDO Re09/14/17 SEX: M Status: DEP REF SPEC: [id number] NIKOLAY: 09/14/17-09[address] [facility] [address]: Cl Nicolas MD REQ: [id number] RECD: 09/14/17123 STATUS: TATE MASTERS DR: Karyna Tavares PA [...] 1025 END OF REPORT DEPARTMENT OF PATHOLOGY, [address] [place] [address] Ronald Lornezana M.D. Director [facility] # [id number] Pt of MS, referral ordered by DL, pt has apt 05/03/17. SL 10 SEE RESULT BELOW Name: JOHNATHON GOMES : [address]: Cl Nicolas MD Acct: [id number] Unit: [id number] AGE: 62 Location: ENDOC Re04/24/17 SEX: M Status: DEP REF SPEC: [id number] NIKOLAY: 04/24/17-[address] [facility] [address]: Cl Nicolas MD REQ: [id number] RECD: 04/25/17-1153 STATUS: TATE MASTERS DR: Duncan Waite DO _ ORDERED: LEVEL 4 COMMENTS: [id number] FINAL DIAGNOSIS Gastroesophageal junction, biopsy: -- Benign [...] performed at Main Lab DEPARTMENT OF PATHOLOGY, [address] [place] [address] Ronald Lorenzana M.D. Director [facility] # [id number] 11 Desirable: <150 Borderline High: 150-199 High: 200-499 Very High: >500 12 Desirable: <200 Borderline High: 200-239 High: >239 13 Low: <40 Desirable: 40-60 High: >60 14 Desirable: <100 Near Optimal: 100-129 Borderline High: 130-159 High: 160-189 Very High: >189 15 Because ethnic data is not always readily [...] 15-29 5 Kidney failure <15 (or dialysis) 16 FASTING 17 Desirable <150 Borderline high 150-199 High 200-499 Very High >500 18 Desirable <200 Borderline high 200-239 High >239 19 Low <40 Desirable: 40-60 High: >60 20 Desirable: <100 mg/dL Near Optimal: 100-129 mg/dL Borderline High: 130-159 mg/dL High: 160-189 mg/dL Very High: >189 mg/dL 21 FASTING 22 Because ethnic data is not always readily [...] 15-29 5 Kidney failure <15 (or dialysis) 23 PT IS FASTING 24 Desirable <150 Borderline high 150-199 High 200-499 Very High >500 25 Desirable <200 Borderline high 200-239 High >239 26 Low <40 Desirable: 40-60 High: >60 27 Desirable <100 Near Optimal 100-129 Borderline high 130-159 High 160-189 Very High >189 28 ---- RUN DATE: 07/03/06 [facility] NMI LIVE PAGE 1 RUN TIME: 1414 Specimen Inquiry RUN USER: INTERFACE [id number] JOHNATHON GOMES/Santhosh <REG REF 07/02> ([id number]) Lucia Gordillo MD -- Specimen: [id number] Spec Date: 07/02/[address]: Cl puente MD Spec Type: SURGICAL P Received: 07/02/06-0125 Copies to: Thai CruzIdalia Edmundo SPECIMEN 1) ESOPHAGOGASTRIC JUNCTION BIOPSY 2) COLON POLYP AT 25 CM. HISTORY CLINICAL INFORMATION: Patient for screening colonoscopy with negative fam lidia history of colon cancer or polyps with history of chronic gastroesophageal refl ux disease GROSS DESCRIPTION 1) The specimen is received in formalin labelled Johnathon Schillingottoniel, Biopsy EG Junction, and consists of soft acharya tissue fragment measuring 0.5 x 0.2 x 0.1 cm. Submitted entirely, one cassette. 2) The specimen is received in formalin labelled Johnathon Schillingana liliaiesha, Colon Polyp at 25 cm., and consists [...] MD 07/03/06 -- -- DEPARTMENT OF PATHOLOGY, [address] [place] [address] [facility] Permit #[id number] Ike Shultz II, M.D. Director Ronald Lorenzana M.D. Technical Support Intern D irector -- 29 Anion gap measurement may be of limited value in the presence of any alkalosis, especially in a combined acid base disorder. . 30 REFERENCE RANGE FOR CHILDREN LESS THAN 6 [...] FOR BLOOD LEAD. TESTING WAS PERFORMED BY [facility] WHICH IS LICENSED BY [facility] TO PERFORM BLOOD LEAD TESTING. THIS CERTIFICATE IS PROVIDED A SERVICE TO OUR CLIENTS AND THEIR PATIENTS WHO MAY BE REQUIRED TO PRODUCE DOCUMENTATION OF BLOOD LEAD TESTING. . 31 FASTING 32 * SERUM LEVELS OF PSA MEASURED USING THE NATE MARIANO ACCESS HYBRITECH IMMUNOASSAY SHOULD NOT BE INTERPRETED ABSOLUTE EVIDENCE OF THE PRESENCE OR ABSENCE OF DISEASE. THE PSA VALUE SHOULD BE USED IN CONJUNCTION WITH OTHER PERTINENT CLINICAL DIAGNOSTIC PROCEDURES. 33 Classification: High . 34 Classification: Low . 35 CALCULATED LDL APPROXIMATES THE VALUE OF A DIRECT LDL MEASUREMENT. Classification: High . 36 MANY [COAG NEG STAPHYLOCOCCUS] - MULTIPLE VARIANTS; NO FURTHER WORKUP COAG NEG STAPHYLOCOCCUS Procedures Date CPT Code Description Status 06/29/2014 11469 SC/Im Injections Completed 05/24/2012 Colonoscopy Completed 01/30/2007 82608 Bronchospasm Evaluation Pre & Post Completed 01/30/2007 49431 Bronchospasm Evaluation Pre & Post Completed 06/20/2006 79367 Excise Benign Lesion 1.1-2CM Trunk/Arm/Leg Completed 06/15/2006 18158 X-Ray Chest Two Views Completed 06/07/2006 31465 Remove Impact Cerumen Requiring Instrument, Unilateral Completed 06/05/2006 28702 I & D Abscess Simple Completed Encounters Type Date Location Provider CPT E/M Dx Office Visit 10/05/2017 9:45a Main Office Duncan Waite D.O. 37360 M79.605 M54.5 I10 R60.0 M10.9 Office Visit 09/24/2017 10:20a Main Office Harinder Brantley 25633 M79.605 M54.5 I10 R60.0 Office Visit 02/08/2017 8:40a Main Office Paxton BrantleyAIdalia 16814 R59.0 R11.2 J32.9 G47.01 F17.201 E78.00 Office Visit 01/25/2017 3:00p Main Office Harinder Brantley 26417 J01.90 R59.0 B30.9 I10 Office Visit 05/02/2016 8:55a Main Office Duncan Waite D.O. 87501 I10 Z00.01 Z23 Z41.8 Office Visit 08/20/2015 10:45a Main Office Duncan Waite D.O. 75951 F41.9 G47.01 K21.9 J31.0 Office Visit 03/08/2015 9:45a Main Office Duncan Waite D.O. 13100 F41.9 G47.01 E78.2 K21.9 Z00.01 M54.18 Office Visit 12/04/2014 9:15a Main Office Duncan Waite D.O. 91019 300.00 327.01 272.2 530.81 461.0 Office Visit 10/29/2014 9:00a Main Office VuEma hutchinson, RPA-C 10443 465.8 473.8 528.9 Office Visit 07/30/2014 8:30a Main Office Duncan Waite D.O. 82807 327.01 272.2 530.81 786.2 461.0 300.00 v05.3 v07.2 Office Visit 06/29/2014 1:15p Main Office Duncan Waite D.O. 49748 466.0 Office Visit 06/25/2014 12:55p Main Office Duncan Waite D.O. 66147 327.01 272.2 466.0 786.2 Office Visit 03/02/2014 9:45a Main Office Duncan Waite D.O. 05985 272.2 V70.0 V06.1 V04.81 V07.2 V76.44 Office Visit 11/13/2013 8:45a Main Office Duncan Waite D.O. 73753 272.2 530.81 719.42 327.01 Office Visit 02/27/2013 10:30a Main Office Duncan Waite D.O. 69158 E906.4 461.0 272.2 V04.81 V07.2 V70.0 Office Visit 02/21/2013 3:20p Main Office Harinder Brantley 47841 461.9 786.2 E906.4 780.60 Office Visit 01/30/2007 10:45a [place] [address] 519.11 519.11 519.11 519.11 Office Visit 06/20/2006 11:30a Main Office kleparobert 26988 706.2 Office Visit 06/15/2006 11:00a Main Office kleparobert 65182 530.81 706.2 305.1 272.8 780.8 Office Visit 06/09/2006 9:15a [place] [address] 530.81 706.2 Office Visit 06/07/2006 3:15p Main Office kleparobert 34514 305.1 600.00 V76.51 V77.91 380.4 Office Visit 06/05/2006 2:45p Main Office Kendell Jj M.D. 43131 706.2 796.2 305.1 Plan of Care Future Appointment(s):10/11/2017 9:00 am - Duncan Waite D.O. at Main Lrnaoq0810/05/2017 - Duncan Waite D.O.M79.605 Pain in left legM54.5 Low back painI10 Essential (primary) lugbmrhzavkjT15.0 Localized algdiY71.9 Gout, unspecifiedFollow up:as scheduled
[2017-10-18 13:47] LABS: ABS Basophils 0.1 10^3/ul (0-0.2); ABS Eosinophils 0.1 10^3/ul (0-0.6); ABS Lymphocytes 2.6 10^3/ul (1.0-4.8); ABS Monocytes 0.8 10^3/ul (0-0.8); ABS Neutrophils 8.5 10^3/ul (1.5-7.7); ABS Nucleated RBC 0 10^3/ul; Eosinophil % 0.8 % (0-6); Hematocrit 43 % (42-52); Hemoglobin 14.7 g/dl (14.0-18.0); Lymphocyte % 21.6 % (25-47); Mean Corpuscular HGB Conc 34 g/dl (31-36); Mean Corpuscular Hemoglobin 32 pg (27-31); Mean Corpuscular Volume 95 fL (80-94); Mean Platelet Volume 6.7 um3 (7.4-10.4); Nucleated Red Blood Cells % 0; Platelet Count 214 10^3/ul (150-450); Red Blood Count 4.57 10^6/ul (4.00-5.40); Red Cell Distribution Width 13 % (10.5-15)
[2017-10-18 17:36] VITALS: BP 179/99
--- NOTE | 2017-10-18 17:59 | ED ---
Marvin Kc Angela, scribed for Johnathon Phoenix MD on 10/18/17 at 1439 . Lower Extremity - HPI Summary HPI Summary: This pt is a 62 y/o male presenting to [facility] c/o increased left knee pain and swelling today. Pt reports that about 1 month ago his left knee began to suddenly swell up. He had tests done and was also seen by vascular. His PCP, Dr. Waite, removed fluid from his left knee and was told he had gout. Pt was started on Colchicine for gout on September 04. He states the culture from this fluid was positive for Staph. Pt was placed on Doxycycline 2 days ago for Staph. He has taken 4 doses so far of Doxy, last one at 05:30 today. He reports his knee was getting better until he began these medications. Today pt developed crunching sharp pain on his left knee. Additionally he states he is not able to bear weight on left knee. He is only able to flex knee and straighten it, but cannot move knee from side to side or around. Pt had a temperature last night, none today. Currently he rates his pain 3/10 in severity. His pain is aggravated with ambulation, rating it 10/10 in severity. Denies recent cold symptoms. - History of Current Complaint Chief Complaint: EDExtremityLower Stated Complaint: LT KNEE INFECTION,+STAPH Time Seen by Provider: 10/18/17 14:12 Hx Obtained From: Patient Mechanism Of Injury: Other - no trauma Onset of Pain: Immediate Onset/Duration: Weeks Severity Currently: Mild Pain Intensity: 3 Pain Scale Used: 0-10 Numeric Timing: Lasting Weeks Location: Is Discrete @ - left knee Character Of Pain: Sharp Associated Signs And Symptoms: Positive: Swelling, Fever, Knee Pain Aggravating Factor(s): Ambulation Alleviating Factor(s): Rest Able to Bear Weight: No - Allergies/Home Medications Allergies/Adverse Reactions: Allergies Allergy/AdvReac Type Severity Reaction Status Date / Time DAIRY AdvReac Severe "MY BACK Uncoded 10/18/17 12:15 GOES OUT" Home Medications: Home Medications Cholecalciferol TAB* [Vitamin D TAB*] 1,000 unit PO DAILY 10/18/17 [History Confirmed 10/18/17] Colchicine* [Colcrys*] 0.6 mg PO BID 10/18/17 [History Confirmed 10/18/17] DOXYcycline CAP(*) [DOXYcycline 100MG CAP(*)] 100 mg PO BID 10/18/17 [History Confirmed 10/18/17] Enzymes,Digestive [Enzymatic Digestant] 1 each PO DAILY 10/18/17 [History Confirmed 10/18/17] Multivitamins/Minerals TAB* [Theragran/minerals TAB*] 1 tab PO DAILY 10/18/17 [ History Confirmed 10/18/17] Bartow-3 Fatty Acids (Nf) [Fish Oil (NF)] 1,000 mg PO DAILY 10/18/17 [History Confirmed 10/18/17] Omeprazole CAP* [Prilosec CAP* 20 MG] 40 mg PO DAILY 10/18/17 [History Confirmed 10/18/17] PMH/Surg Hx/FS Hx/Imm Hx Endocrine/Hematology History: Denies: Hx Diabetes Cardiovascular History: Denies: Hx Hypertension, Hx Pacemaker/ICD History: Denies: Hx Renal Disease Musculoskeletal History: Denies: Hx Rheumatoid Arthritis, Hx Osteoporosis Sensory History: Denies: Hx Hearing Aid Psychiatric History: Denies: Hx Panic Disorder - Surgical History Surgery Procedure, Year, and Place: appendix age 5 Infectious Disease History: No Infectious Disease History: Denies: Hx Clostridium Difficile, Hx Hepatitis, Hx Human Immunodeficiency Virus (HIV), Hx of Known/Suspected MRSA, Hx Shingles, Hx Tuberculosis, Hx Known/ Suspected VRE, Hx Known/Suspected VRSA, History Other Infectious Disease, Traveled Outside the [place] in Last 30 Days - Family History Family History: Negative for colon CA. Uncle: liver CA. - Social History Alcohol Use: Occasionally Alcohol Amount: 1 GLASS/DAY Substance Use Type: Reports: None Type: Cigarettes Amount Used/How Often: 1/2 ppd Length of Time of Smoking/Using Tobacco: 30 yrs Have You Smoked in the Last Year: Yes Review of Systems Positive: Fever - yesterday Negative: Other - cold symptoms Musculoskeletal: Other - left knee pain Positive: Edema - in left knee All Other Systems Reviewed And Are Negative: Yes Physical Exam - Summary Physical Exam Summary: Appearance: The patient is well-nourished in no acute distress and in no acute pain. Skin: The skin is warm and dry and skin color reflects adequate perfusion. HEENT: The head is normocephalic and atraumatic. The pupils are equal and reactive. The conjunctivae are clear and without drainage. Nares are patent and without drainage. Mouth reveals moist mucous membranes and the throat is without erythema and exudate. The external ears are intact. The ear canals are patent and without drainage. The tympanic membranes are intact. Neck: the neck is supple with full range of motion and non-tender. There are no carotid bruits. There is no neck vein distension. Respiratory: Chest is non-tender. Lungs are clear to auscultation and breath sounds are symmetrical and equal. Cardiovascular: Heart is regular rate and rhythm. There is no murmur or rub auscultated. The pulses are symmetrical and equal. Abdomen: The abdomen is soft and non-tender. There are normal bowel sounds heard in all four quadrants and there is no organomegaly palpated. Musculoskeletal: There is no back tenderness noted. There is good capillary refill. There is no calf tenderness elicited. LLE: left patella does not allot, but he does not relax his quads very well. Mildly swollen in appearance. Neurological: Patient is alert and oriented to person, place and time. The patient has symmetrical motor strength in all four extremities. Cranial nerves are grossly intact. Deep tendon reflexes are symmetrical and equal in all four extremities. Psychiatric: The patient has an appropriate affect and does not exhibit any anxiety or depression. Triage Information Reviewed: Yes Vital Signs On Initial Exam: Initial Vitals Temp Pulse Resp BP Pulse Ox 98.5 F 87 18 152/106 97 10/18/17 12:08 10/18/17 12:08 10/18/17 12:08 10/18/17 12:08 10/18/17 12:08 Vital Signs Reviewed: Yes Procedures - Procedure Summary Procedure Summary: I performed a left knee aspiration under aseptic conditions. He was prepped and draped with Betadine and the skin was numbed with 1% lidocaine. An 18- gauge needle was used to enter the joint and 5 cc of blood-tinged yellow fluid was obtained easily. He was very tender to any joint manipulation and I was unable to express any more fluid. He tolerated the procedure well. Diagnostics - Vital Signs Vital Signs Temp Pulse Resp BP Pulse Ox 10/18/17 13:07 98.3 F 77 18 142/99 96 10/18/17 12:08 98.5 F 87 18 152/106 97 - Laboratory Lab Results: Lab Results 06/10/18/17 10/18/17 Range/Units 13:35 13:35 13:35 WBC 12.0 H (3.5-10.8) 10^3/ul RBC 4.57 (4.00-5.40) 10^6/ul Hgb 14.7 (14.0-18.0) g/dl Hct 43 (42-52) % MCV 95 H (80-94) fL MCH 32 H (27-31) pg MCHC 34 (31-36) g/dl RDW 13 (10.5-15) % Plt Count 214 (150-450) 10^3/ul MPV 6.7 L (7.4-10.4) um3 Neut % (Auto) 70.7 (38-83) % Lymph % (Auto) 21.6 L (25-47) % Fleming % (Auto) 6.5 (0-7) % Eos % (Auto) 0.8 (0-6) % Baso % (Auto) 0.4 (0-2) % Absolute Neuts (auto) 8.5 H (1.5-7.7) 10^3/ul Absolute Lymphs (auto) 2.6 (1.0-4.8) 10^3/ul Absolute Monos (auto) 0.8 (0-0.8) 10^3/ul Absolute Eos (auto) 0.1 (0-0.6) 10^3/ul Absolute Basos (auto) 0.1 (0-0.2) 10^3/ul Absolute Nucleated RBC 0 10^3/ul Nucleated RBC % 0 Sodium 139 (135-145) mmol/L Potassium 3.8 (3.5-5.0) mmol/L Chloride 104 (101-111) mmol/L Carbon Dioxide 28 (22-32) mmol/L Anion Gap 7 (2-11) mmol/L BUN 12 (6-24) mg/dL Creatinine 1.02 (0.67-1.17) mg/dL Est GFR ( Amer) 89.5 (>60) Est GFR (Non-Af Amer) 74.0 (>60) BUN/Creatinine Ratio 11.8 (8-20) Glucose 107 H (70-100) mg/dL Lactic Acid 1.2 (0.5-2.0) mmol/L Calcium 9.8 (8.6-10.3) mg/dL Total Bilirubin 0.70 (0.2-1.0) mg/dL AST 25 (13-39) U/L ALT 51 (7-52) U/L Alkaline Phosphatase 60 (34-104) U/L C-Reactive Protein 5.95 (<8.01) mg/L Total Protein 7.4 (6.4-8.9) g/dL Albumin 4.4 (3.2-5.2) g/dL Globulin 3.0 (2-4) g/dL Albumin/Globulin Ratio 1.5 (1-3) Result Diagrams: 10/18/17 13:35 10/18/17 13:35 Lab Statement: Any lab studies that have been ordered have been reviewed, and results considered in the medical decision making process. Lower Extremity Course/Dx - Course Course Of Treatment: Mr. Gomes presented in no acute distress but clearly had left knee pain and tenderness to range of motion. He was afebrile with normal vital signs and his knee was only slightly swollen without any ballottement although he was unable to entirely relax. His white blood cell count was 12 with an ANC of 8.5. CRP was within normal limits. I performed a joint aspiration of his left knee under aseptic conditions and the result was unremarkable. I consulted Drs. Westbrook and Laureen and Dr. Westbrook came and saw him in the department. He does not appear to have an acute infectious joint and Dr. Westbrook will follow him in the office on Sunday. - Diagnoses Provider Diagnoses: Knee effusion, left - Physician Notifications Discussed Care Of Patient With: Nathanael Westbrook Time Discussed With Above Provider: 14:43 Instructed by Provider To: Other - I discussed pt care with Dr. Westbrook, orthopedist. Discharge - Sign-Out/Discharge Documenting (check all that apply): Discharge/Admit/Transfer - Discharge - Discharge Plan Condition: Stable Disposition: HOME Patient Education Materials: Swollen Knee Joint (ED) Referrals: Duncan Waite DO [Primary Care Provider] - Nathanael Westbrook MD [Medical Doctor] - (Follow up on 10/23/17.) Additional Instructions: Continue Doxycycline as prescribed. Please follow up with Dr. Westbrook, orthopedist, on Sunday10/23/17. RETURN TO THE ED FOR ANY WORSENING SYMPTOMS. - Billing Disposition and Condition Condition: STABLE Disposition: Home The documentation as recorded by the Marvin meade Angela accurately reflects the service I personally performed and the decisions made by me, Johnathon Phoenix MD.
--- NOTE | 2017-10-18 21:52 | CONS ---
CONSULTATION REPORT: DATE OF CONSULT: 10/18/17 ATTENDING PHYSICIAN: Nathanael Westbrook MD CHIEF COMPLAINT: Left knee pain. HISTORY OF PRESENT ILLNESS: Briefly, Johnathon Gomes is a 62-year-old male, who initially noticed knee pain about a month ago on the . He woke up, he was at a restaurant. He had a lot of swelling and pain, difficulty weightbearing. He underwent x-ray, which demonstrated some osteoarthritis. He had persistent pain. He underwent a knee aspiration around 2 weeks ago on , which was negative and a concern for gout. He has a history of rheumatoid arthritis, gout, and osteoarthritis. He was placed on colchicine. Five days later, the culture was negative until the day after that on 10/10/17, it was found to be positive for Staph capitis. He was then started on doxycycline approximately 2 days ago. Since then, he has had increasing pain. He reported some shaking chills yesterday with sweating through sheets. He did not check his temperature, he is currently afebrile. He has a catchy sharp pain in his knee. He limits his range of motion, he has pain with weightbearing. He still has some mild swelling. ED was concerned and reviewed that he has been on doxycycline now as well as colchicine. He has not been taking ibuprofen, although he has been just prescribed that in the past. He does not report any recent illnesses. No current fevers or chills. He is obviously very concerned. PAST MEDICAL HISTORY: Significant for rhinitis, sacral radiculopathy, anxiety, maxillary sinusitis, insomnia, GERD, hyperlipidemia, dysphagia. PAST SURGICAL HISTORY: Dental implants and EGDs. ALLERGIES: None. FAMILY HISTORY: Significant for uncle with liver cancer. The patient's parents both lived into their 90s. SOCIAL HISTORY: He is a former smoker. No tobacco or IV drug use. He is right - hand dominant and he lives with his . He is a community ambulator. He drinks alcohol daily. 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 REVIEW OF SYSTEMS: Significant for the above complaints; shaky chills last night, knee pain, swelling, catching sharp pain. No redness or warmth. Some pain with weightbearing. No shortness of breath, chest pain and no current numbness or tingling. He does have some high blood pressure today, otherwise remainder of the systems is negative. PHYSICAL EXAM: Temperature 98.3, pulse is 77, respiratory rate 18, 96% oxygen on room air, blood pressure 142/99. He is in no acute distress, sitting in the bed. He does move his knee and has a sharp stabbing pain. There is hardly any effusion. He is tender about the knee cap itself. His calf is soft and nontender. He is sensate to light touch grossly distally with brisk capillary refill. He is able to dorsiflex and plantarflex his ankle. He can flex his knee. Range of motion of his knee is from about 2 degrees to 110 degrees, stable to varus and valgus stress. EOMI. Chest: Clear. He is respiring comfortably. Pulse is regular rate and rhythm, but mildly tachycardic. DIAGNOSTIC STUDIES/LAB DATA: X-rays obtained previously demonstrate osteoarthritis, these were from 09/24/17 of the hip and the knee. Venous ultrasound demonstrated no history of blood clots, this was obtained on . He has other images like a lumbar spine MRI, which is obtained on 10/04/17, which has report that is significant for mild lumbar spondylosis. Labs obtained today. White blood cell count of 12.0, it is up from 10.4 on 10/02/17. ESR is pending, but the previous one was 25, again on 10/02/17. CRP is 5.95, which is down from 10/02/17. Synovial fluid was obtained, his white blood cell count is 239, red blood cells elevated, crystals none on both 10/18/17 and 10/05. He had a Lyme test from 10/02/17 that was negative and is pending again. ASSESSMENT AND PLAN: He has a left knee pain. Likely, this is an osteoarthritic type of flare. The knee was previously aspirated in the ER and the results are unremarkable. I did call the Infectious Disease doctor to ask about Staph capitis, which is likely a colonization as opposed to an actual infection. Blood cultures are still pending. We will continue following him from this point, I want him to follow up with me in the office on Sunday. If he is still having pain, we may consider steroid injections to see if this calms down his symptoms. He does have a history of rheumatoid arthritis as well as osteoarthritis. This was discussed with the patient at length and I will see him back in the office this coming week. [id number]/[facility] #: [id number] JOZEF
== END 2017-10-18 17:34 | disposition home or self-care (01) ==
LOC: ED 11:59
DX: M25.462 Effusion, left knee (principal); F17.210 Nicotine dependence, cigarettes, uncomplicated
CPT/HCPCS: 20610; 36415; 80053; 83605; 85025; 85652; 86140; 87040; 87070; 87205; 87476; 87640; 87641; 87798; 89051; 89060; 99282

== ENCOUNTER 2018-01-30 17:45 | Observation (INO) | payer BC ==
--- OUTSIDE RECORDS SUMMARY | 2018-01-30 18:25 | XMS REPORT ---
:1955 External Reference #:[id number] Author Organization [facility] Address [address] [place] [address] Phone [phone] Care Team Providers Name Role Phone Duncan Waite DO Care Team Information Obstetrics Specialist Unavailable Duncan Waite DO Primary Care Physician Unavailable Payers Type Date Identification Numbers Payment Provider Subscriber Commercial Policy Number: [id number] [employer] Sabrina Michel PayID: [id number] [address] [address] [place] [address] Problems Date Description Provider Status Onset: 01/02/2018 Allergic contact dermatitis due to Ronald Aguayo MD Active other agents Family History Date Family Member(s) Problem(s) Comments General Unknown Social History Type Date Description Comments Smoke-Free Home is not smoke-free Pets None Smoking Light tobacco smoker (10 or fewer cigarettes/day) 4 cigarettes daily Allergies, Adverse Reactions, Alerts Date Description Reaction Status Severity Comments 01/02/2018 NKDA active Medications Medication Date Status Form Strength Qnty SIG Indications Ordering Provider Ibuprofen Active Tablets 800mg Unknown Hydrocodone-Acet Active Tablets 5-325mg Silcoff, aminophen MD [place] Vital Signs Date Vital Result Comment 01/02/2018 BP Systolic 136 mmHg BP Diastolic 76 mmHg Height 69.5 inches 5'9.50" Weight 210.00 lb BMI (Body Mass Index) 30.6 kg/m2 Heart Rate 108 /min Respiratory Rate 16 /min Body Temperature 96.5 F O2 % BldC Oximetry 96 % Results Description No Information Procedures Description No Information Encounters Type Date Location Provider CPT E/M Dx Office Visit 01/02/2018 2:30p [place] [address] L23.89 Plan of Care Future Appointment(s):01/11/2018 11:30 am - MADELEINE Izaguirre at Swqbpy7401/09/2018 9:30 am - MADELEINE Izaguirre at Nqsdgp7001/07/2018 9:00 am - Injection 1 at [place] [id number]/2018 - Ronald Aguayo MDL23.89 Allergic contact dermatitis due to other agents
--- OUTSIDE RECORDS SUMMARY | 2018-01-30 18:25 | XMS REPORT ---
:1955 External Reference #:[id number] Author Organization [facility] Address [address] [place] [address] Phone [phone] Care Team Providers Name Role Phone Duncan Waite DO Care Team Information Electrical Test Technician Unavailable Duncan Waite DO Primary Care Physician Unavailable Payers Type Date Identification Numbers Payment Provider Subscriber Commercial Policy Number: [id number] [facility] López Michel PayID: [id number] [address] [address] [place] [address] Medigap Part B Policy Number: [id number] [facility] López Micheliesha PayID: [id number] [address] [address] [place] [address] Problems Date Description Provider Status Onset: 01/02/2018 [...] Tablets 800mg Unknown Hydrocodone-Acet Active Tablets 5-325mg demian Jj MD Vital Signs Date Vital Result Comment 01/09/2018 Height 69.5 inches 5'9.50" Weight 210.00 lb BMI (Body Mass Index) 30.6 kg/m2 Respiratory Rate 16 /min 01/02/2018 BP Systolic 136 mmHg BP Diastolic 76 mmHg Height 69.5 inches 5'9.50" Weight 210.00 lb BMI (Body Mass Index) 30.6 kg/m2 Heart Rate 108 /min Respiratory Rate 16 /min Body Temperature 96.5 F O2 % BldC Oximetry 96 % Results Description No Information Procedures Description No Information Encounters Type Date Location Provider CPT E/M Dx Office Visit 01/02/2018 2:30p [place] [address] L23.89 Plan of Care Future Appointment(s):01/11/2018 11:30 am - MADELEINE Izaguirre at [place]
--- OUTSIDE RECORDS SUMMARY | 2018-01-30 18:25 | XMS REPORT ---
:1955 External Reference #:[id number] Author Organization [facility] Address [address] [place] [address] Phone [phone] Care Team Providers Name Role Phone Duncan Waite DO Care Team Information Music Cataloguer Unavailable Duncan Waite DO Primary Care Physician Unavailable Payers Type Date Identification Numbers Payment Provider Subscriber Commercial Policy Number: [id number] [employer] Sabrina Michel PayID: [id number] [address] [address] [place] [address] Problems Date Description Provider Status Onset: 01/02/2018 [...] CPT E/M Dx Office Visit 01/02/2018 2:30p [place] [address] L23.89 Plan of Care Future Appointment(s):01/11/2018 11:30 am - MADELEINE Izaguirre at Dfmcbq2801/09/2018 9:30 am - MADELEINE Izaguirre at Wnbujg9701/07/2018 9:00 am - Injection 1 at [place] [id number]/2018 - Ronald Aguayo MDL23.89 Allergic contact dermatitis due to other agents
--- OUTSIDE RECORDS SUMMARY | 2018-01-30 18:25 | XMS REPORT ---
:1955 External Reference #:[id number] Author Organization [facility] Address [address] [place] [address] Phone [phone] Care Team Providers Name Role Phone Duncan Waite DO Care Team Information Director Of Government Sales Unavailable Duncan Waite DO Primary Care Physician Unavailable Payers Type Date Identification Numbers Payment Provider Subscriber Commercial Policy Number: [id number] [employer] Sabrina Michel PayID: [id number] [address] [address] [place] [address] Problems Description No Information Social History Description No Information Available Allergies, Adverse Reactions, Alerts Date Description Reaction Status Severity Comments 01/02/2018 NKDA active Medications Medication Date Status Form Strength Qnty SIG Indications Ordering Provider Ibuprofen Active Tablets 800mg Unknown Hydrocodone-Acet Active Tablets 5-325mg Bernardacojodi aminoashanti Rdz MD Vital Signs Date Vital Result Comment 01/02/2018 BP Systolic 136 mmHg BP Diastolic 76 mmHg Height 69.5 inches 5'9.50" Weight 210.00 lb BMI (Body Mass Index) 30.6 kg/m2 Heart Rate 108 /min Respiratory Rate 16 /min Body Temperature 96.5 F O2 % BldC Oximetry 96 % Results Description No Information Procedures Description No Information Plan of Care No Information Available
--- OUTSIDE RECORDS SUMMARY | 2018-01-30 18:25 | XMS REPORT | Continuity of Care Document ---
:1955 External Reference #:[id number] Author Name Duncan Waite D.O. Address [address] [place] [id number] Care Team Providers Name Role Phone HCP given Primary Care Physician Unavailable Payers Type Date Identification Numbers Payment Provider Subscriber Policy Number: [id number] [employer]/Ppo/Hmo/Pos Sabrina Gomes Group Number: [employer] P[employer] [address] [address] PayID: [id number] TIFFANIE Villasenor [address] Effective: Policy Number: [employer] Ind/Ppo/Hmo/Pos Rosemarie Eliseo 2006 [id number] Expires: 2013 PayID: [id number] [address] [address] TIFFANIE Villasenor [phone] Advance Directives Description No Information Available Problems Date Description Provider Status Onset: 11/13/2013 [...] Family Member(s) Problem(s) Comments Father Alcoholism Father Emotional Problems Father Heart Problems Father Stroke Father Prostate Cancer 1997 Father Gout Mother Alcoholism Mother Emotional Problems Mother High Blood Pressure Mother Hypercholesterolemia Mother Obesity Mother Thyroid Disease Onset: (age 53 Years) First Sister Breast Cancer post menopausal Social History Type Date Description Comments Sex Unknown Education High School Completed Marital Status Lives With 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 Recreational Drug Use Denies Drug Use Tobacco Use Start: Unknown Patient is a current smoker, smokes every day Recreational Drug Use Denies Drug Use Exercise Type/Frequency Exercises regularly Sun Exposure Uses sunscreen Seat Belt/Car Seat Seat Belt Use - Yes Currently Active Patient is currently sexually active Contraceptive Methods Vasectomy Allergies, Adverse Reactions, Alerts Description No Known Drug Allergies Medications Medication Date Status Form Strength Qnty SIG Indications Ordering Provider Colcrys 01/17 Active Tablets 0.6mg 60tab 1 twice a Sopchak, s day. Duncan D.O. Bupropion HCL 01/17 Active Tablets ER 150mg 90tab Take 1 F17.201 Sopchak, ER (Smoking 12HR s tablet daily Duncan, Det) for smoking D.O. cessation Hydrocodone-Maxim 11/23 Active Tablets 5-325mg 42tab 1 tablet Sopchak, taminophen s every 4 Duncan, hours as D.O. needed for severe pain Omeprazole 09/[address] 40mg 1 qd Maria Isabel MD Cl TUNA Oil 05/01 Active two po daily Coq10 07/29 Active Capsules 90cap 1 by mouth Billiek, s every day Duncan D.O. Multivitamin 06/05 Active 1 po qd Unknown (OTC) /2006 Doxycycline 10/16 Hx Capsules 100mg 42cap 1 by mouth Sopchak, Monohydrate s twice a day Duncan, - for 21 days. D.O. 11/06 Colcrys 10/05 Hx Tablets 0.6mg 60tab take 2 Sopchak, s immediately Duncan, - then 1 1 D.O. 11/04 hour later. then next day take 1 twice a day. Ibuprofen 10/04 Hx Tablets 200mg as needed - 11/22 Fluconazole 04/28 Hx Tablets 200mg 14tab 2 tabs day Sil s one, 1 tab Kendell, - days 2-13 M.D. 05/14 for esophageal candidiasis Amoxicillin 01/25 Hx Tablets 875mg 20tab 1 by mouth R59.0 Silcoff, s twice a day Kendell, - x 10 days M.D. 02/04 for sinus infection Bupropion HCL 11/27 Hx Tablets ER 150mg 90tab Take 1 F17.201 Sopchak, ER (Smoking 12HR s tablet qd to Duncan, Det) - bid for D.O. 11/22 smoking cessation Amlodipine 05/02 Hx Tablets 5mg 90tab take 1 [place]ak, Besylate s tablet by Duncan, - [...] Hx Suspension 50mcg/Act 16uni 2 sprays J31.0 Mariann, Propionate ts into each Duncan, - nostril D.O. 05/01 every Benzonatate 10/29 Hx Capsules 200mg 60cap 1 by mouth J06.9 Анна, s three times Kendell, - a day [...] 461.0 Sopchak, vulanate s twice a day Duncan Potassium - D.O. 08/09 Ativan 07/30 Hx Tablets 0.5mg 30tab take 1 F41.9 Sopcha, s tablet by Duncan, - mouth up 3 D.O. 04/28 times per day as needed for anxiety may make you drowsy Robitussin 06/29 Hx Capsules 10-200mg [place]ak, Cough+Chest Duncan, Congestion DM - D.O. 10/29 Prednisone 06/29 Hx Tablets 10mg 10tab 2 tabs for 3 466.0 Sopcha s days then 1 Duncan, - tab for 4 D.O. Trazodone HCL 06/25 Hx Tablets 50mg 60tab take 1-2 327.01 Sopcha, s tablets by Duncan, - mouth daily D.O. 07/25 at bedtime for trouble sleeping Clarithromycin 06/25 Hx Tablets 500mg 20tab 1 by mouth 466.0 Sopcha, s three times Duncan, - a day x 7 D.O. 07/05 Proair HFA 06/25 Hx Aerosol 108(90Bas 8.5un 1-2 puffs 466.0 [facility]) its four times a Duncan, - [...] 100mg 20tab 1 tab po bid E906.4 Silcoff, Hycl s x 10 Yifan Rdz M.D. 10/30 Guaifenesin/Cod 02/21 Hx Solution 100-10mg/ 100ml 1-2 tsps 786.2 Анна, ei 5ML q4-6 hrs, Yifan Rdz M.D. 10/22 Simvastatin 03/08 Hx Tablets 40mg 90tab take one E78.2 s tablet by Duncan, - mouth every D.O. 09/23 day for high cholesterol Prednisone 03/06 Hx Tablets 20mg 21tab 1 bid s - 10/30 Prilosec OTC 06/09 Hx Capsules 20mg 60cap 1 po bid 530.81 [place], s Sabrina MCALLISTER - 11/05 Chantix 06/07 Hx take as 305.1 vincenzo Starting directedIdalia Sherman - 01/30 Augmentin 06/07 Hx Tablets 875mg;125 20tab 1 po bid 706.2 ken mg s - 06/20 Prevacid 06/07 Hx Capsules 30mg 30cap 1 qd for 530.81 ken s reflux - 06/09 Wellbutrin SR 06/05 Hx Tablets 150mg 1 tablet 305.1 orally once - A day 06/12 [place] Fatty 06/05 Hx 1 PO qd Анна Acids Yifan Rdz M.D. 05/01 Medications Administered in Office Medication Date Status Form Strength Qnty SIG Indications Ordering Provider injection, Administered Injection Sopchak, kenalog, 10 mg 018 Duncan D.O. SC/Im Administered Injection Sopchak, Injections 015 Duncan, D.O. Immunizations CPT Code Status Date Vaccine Lot # [id number] Given 05/02/2016 Influenza Virus Vaccine, Quadrivalent, Split, [id number] Preservative Free [id number] Given 07/30/2014 Hep A, Adult [id number] 53503 Given 03/02/2014 Adacel or Boostrix, TDaP [id number] 06675 Given 03/02/2014 Flu, Split Virus 3Yrs [id number] 66462 Given 02/27/2013 Flu, Split Virus 3Yrs [id number] 59563 Given 06/27/2004 Td Immunization Vital Signs Date Vital Result Comment 01/29/2018 4:25pm BP Systolic 126 mmHg BP Diastolic 78 mmHg 01/17/2018 2:20pm BP Systolic 148 mmHg BP Diastolic 88 mmHg Weight 208.00 lb w/shoes 11/23/2017 2:34pm BP Systolic 142 mmHg BP Diastolic 90 mmHg Weight 208.00 lb with shoes 10/11/2017 8:51am BP Systolic 146 mmHg BP Diastolic 90 mmHg BP Systolic Recheck 153 mmHg rt arm/automatic cuff BP Diastolic Recheck 77 mmHg rt arm/automatic cuff Height 71 inches 5'11" with shoes Weight 212.00 lb with shoes BMI (Body Mass Index) 29.6 kg/m2 10/05/2017 10:01am BP Systolic 168 mmHg BP Diastolic 86 mmHg Weight 212.00 lb Per pt 09/24/2017 10:24am BP Systolic 180 mmHg BP Diastolic 112 mmHg Weight 212.00 lb 02/08/2017 8:35am BP Systolic 130 mmHg BP Diastolic 88 mmHg Body Temperature 98.3 F 01/25/2017 2:43pm BP Systolic 150 mmHg BP Diastolic 82 mmHg Body Temperature 98.0 F states he's had fever @ night Height 70 inches 5'10" Weight 198.00 lb BMI (Body Mass Index) 28.4 kg/m2 05/02/2016 8:53am BP Systolic 145 mmHg BP Diastolic 95 mmHg Height 71.25 inches 5'11.25" with shoes Weight 209.00 lb with shoes BMI (Body Mass Index) 28.9 kg/m2 08/20/2015 11:38am BP Systolic 158 mmHg BP Diastolic 80 mmHg BP Systolic Recheck 145 mmHg recheck ra BP Diastolic Recheck 88 mmHg recheck ra Weight 204.00 lb 03/08/2015 10:08am BP Systolic 145 mmHg BP Diastolic 82 mmHg Height 71.75 inches 5'11.75" with shoes Weight 208.00 lb with shoes BMI (Body Mass Index) 28.4 kg/m2 12/04/2014 9:13am BP Systolic 139 mmHg Lrg cuff BP Diastolic 75 mmHg Lrg cuff Heart Rate 68 /min Weight 207.00 lb w/shoes 10/29/2014 9:15am BP Systolic 145 mmHg BP Diastolic 80 mmHg Weight 214.00 lb with shoes 07/30/2014 8:43am BP Systolic 152 mmHg BP Diastolic 80 mmHg Heart Rate 65 /min Height 71.5 inches 5'11.50" shoes on Weight 214.00 lb shoes on BMI (Body Mass Index) 29.4 kg/m2 06/29/2014 1:15pm BP Systolic 148 mmHg BP Diastolic 82 mmHg Body Temperature 99.1 F 06/25/2014 12:53pm BP Systolic 130 mmHg BP Diastolic 78 mmHg O2 % BldC Oximetry 98 % on ra Body Temperature 99.0 F Weight 214.00 lb shoes on 03/02/2014 9:28am BP Systolic 158 mmHg BP Diastolic 90 mmHg BP Systolic Recheck 155 mmHg BP Diastolic Recheck 82 mmHg Height 70.75 inches 5'10.75" Weight 207.00 lb BMI (Body Mass Index) 29.1 kg/m2 11/13/2013 8:37am BP Systolic 140 mmHg BP Diastolic 78 mmHg Height 71 inches 5'11" Weight 205.00 lb BMI (Body Mass Index) 28.6 kg/m2 02/27/2013 10:15am BP Systolic 140 mmHg BP Diastolic 90 mmHg BP Systolic Recheck 110 mmHg BP Diastolic Recheck 65 mmHg 02/21/2013 3:37pm BP Systolic 155 mmHg BP Diastolic 92 mmHg Heart Rate 78 /min Body Temperature 99.2 F Height 70.50 inches 5'10.50" Weight 206.00 lb BMI (Body Mass Index) 29.1 kg/m2 01/30/2007 10:49am BP Systolic 144 mmHg BP Diastolic 94 mmHg Height 72.25 inches 6'0.25"With Boots Weight 208.00 lb BMI (Body Mass Index) 28.0 kg/m2 06/09/2006 9:04am BP Systolic 136 mmHg BP Diastolic 88 mmHg Height 72.25 inches 6'0.25"With Boots Weight 210.50 lb BMI (Body Mass Index) 28.3 kg/m2 06/07/2006 3:01pm BP Systolic 126 mmHg BP Diastolic 80 mmHg Height 72.25 inches 6'0.25"With Boots Weight 212.00 lb BMI (Body Mass Index) 28.6 kg/m2 06/05/2006 2:50pm BP Systolic 140 mmHg BP Diastolic 94 mmHg Height 72.25 inches 6'0.25"With Boots Weight 209.50 lb With Boots BMI (Body Mass Index) 28.2 kg/m2 Results Test Date Facility Test Result H/L Range Note Laboratory test 10/18/2017 [facility] C Reactive 5.95 mg/L <8.01 finding [phone] Protein Lactic Acid 1.2 mmol/L 0.5-2.0 1 Erythrocyte Sed Rate 15 mm/Hr 0-20 Blood Culture SEE RESULT BELOW 2 Comp Metabolic Panel 10/18/2017 [facility] Sodium 139 mmol/L 135- 145 [phone] Potassium 3.8 mmol/L 3.5-5.0 Chloride 104 mmol/L 101-111 Co2 Carbon Dioxide 28 mmol/L 22-32 Anion Gap 7 mmol/L 2-11 Glucose 107 mg/dL High 70-100 Blood Urea Nitrogen 12 mg/dL 6-24 Creatinine 1.02 mg/dL 0.67-1.17 BUN/Creatinine Ratio 11.8 8-20 Calcium 9.8 mg/dL 8.6-10.3 Total Protein 7.4 g/dL 6.4-8.9 Albumin 4.4 g/dL 3.2-5.2 Globulin 3.0 g/dL 2-4 Albumin/Globulin Ratio 1.5 1-3 Total Bilirubin 0.70 mg/dL 0.2-1.0 Alkaline Phosphatase 60 U/L 34-104 Alt 51 U/L 7-52 Ast 25 U/L 13-39 Egfr Non- 74.0 >60 Egfr 89.5 >60 3 CBC Auto Diff 10/18/2017 [facility] White Blood 12.0 10^3/uL High 3.5 -10.8 [phone] Count Red Blood Count 4.57 10^6/uL 4.00-5.40 Hemoglobin 14.7 g/dL 14.0-18.0 Hematocrit 43 % 42-52 Mean Corpuscular Volume 95 fL High 80-94 Mean Corpuscular Hemoglobin 32 pg High 27-31 Mean Corpuscular HGB Conc 34 g/dL 31-36 Red Cell Distribution Width 13 % 10.5-15 Platelet Count 214 10^3/uL 150-450 Mean Platelet Volume 6.7 um3 Low 7.4-10.4 Abs Neutrophils 8.5 10^3/uL High 1.5-7.7 Abs Lymphocytes 2.6 10^3/uL 1.0-4.8 Abs Monocytes 0.8 10^3/uL 0-0.8 Abs Eosinophils 0.1 10^3/uL 0-0.6 Abs Basophils 0.1 10^3/uL 0-0.2 Abs Nucleated RBC 0 10^3/uL Granulocyte % 70.7 % 38-83 Lymphocyte % 21.6 % Low 25-47 Monocyte % 6.5 % 0-7 Eosinophil % 0.8 % 0-6 Basophil % 0.4 % 0-2 Nucleated Red Blood Cells % 0 Lyme Disease PCR 10/18/2017 [facility] B burgdorferi PCR, Negative Negative [phone] Blood B mayonii PCR Negative Negative B garinii/B afzelii PCR Negative Negative Lyme Disease PCR Comment See Comment 4 Tick-Borne Panel PCR 10/18/2017 [facility] Babesia microti Negative Negative Blood [phone] PCR Babesia ducani Negative Negative Babesia divergens/Mo-1 Negative Negative 5 Anaplasma phagocytophilum Negative Negative Ehrlichia chaffeensis Negative Negative Ehrlichia ewingii/canis Negative Negative Ehrlichia muris-like Negative Negative 6 B. miyamotoi PCR, B Negative Negative 7 Body Fluid Cell 10/18/2017 [facility] Body Fluid Source Synovial Fluid Count [phone] Body Fluid Appearance Cloudy Body Fluid Color [place] Body Fluid Volume 3 mL Body Fluid WBC 239 /mcL 8 Body Fluid RBC 88229 /mcL Body Fluid Neutrophils 48 % Body Fluid Lymph 39 % Body Fluid [place] 12 % Body Fluid Basophils 1 % Body Fluid Total Cells Counted 100 Fluid Reviewed By MD (SEE NOTE) 9 Body Fluid C&S 10/18/2017 [facility] Body Fluid Cult SEE RESULT 10 [phone] Gram Stain BELOW Laboratory test 10/18/2017 [facility] Body Fluid None Seen None Seen 11 finding [phone] Crystals Istat 10/09/2017 [facility] Poc Bun Mainct 18 mg/dL 9-18 BUN/Crea/Egfr/V [phone] Mainct Poc Crea Mainct 0.9 mg/dL 0.6-0.9 GFR Non- MCT 85.5 >60 GFR Mainct 110.0 >60 12 Laboratory test finding 10/05/2017 [facility] Uric Acid 5.5 mg/dL 4.4-7.6 [phone] Vitamin B12 348 pg/mL [phone] 13 Magnesium 2.1 mg/dL 1.9-2.7 TSH (Thyroid Stim Horm) 1.07 mcIU/mL 0.34-5.60 Body Fluid Cell 10/05/2017 [facility] Body Fluid Source Synovial Fluid Count [phone] Body Fluid Appearance Clear Body Fluid Color Yellow Body Fluid Volume 20 mL Body Fluid WBC 41 /mcL 14 Body Fluid RBC 1017 /mcL Body Fluid Neutrophils 12 % Body Fluid Lymph 58 % Body Fluid [place] 30 % Body Fluid Total Cells Counted 100 Fluid Reviewed By MD (SEE NOTE) 15 Laboratory test 10/05/2017 [facility] Body Fluid None Seen None Seen 16 finding [phone] Crystals Body Fluid Culture Bottles SEE RESULT BELOW 17 Gram Stain SEE RESULT BELOW 18 MRSA/S Aureus Ssti PCR SEE RESULT BELOW 19 Laboratory test 10/02/2017 [facility] D Dimer 201 ng/mL Less Than 20 finding [phone] Quantitative 230 Blood Urea Nitrogen BUN 9 mg/dL 6-24 Creatine Kinase 102 U/L 10-223 C Reactive Protein 14.81 mg/L High < 5.00 21 CBC Auto Diff 10/02/2017 [facility] White Blood Count 10.4 10^3/uL 3.5-10.8 [phone] Red Blood Count 4.43 10^6/uL 4.00-5.40 Hemoglobin [...] Red Blood Cells % 0.1 Laboratory test 10/02/2017 [facility] Erythrocyte Sed 25 mm/Hr High 0 -20 finding [phone] Rate Lyme Western 10/02/2017 [facility] Lyme Disease IgG Negative Negative Blot [phone] Ab WB Lyme Disease IgG Bands Present p66,p41 kDa Lyme Disease IgM Ab WB Negative Negative Lyme Disease IgM Bands Present No bands detecte <SEE NOTE> kDa 22 Lyme Disease Interpretation See Comment 23 CBC Auto Diff 09/28/2017 [facility] White Blood Count 9.3 10^3/uL 3.5-10.8 [phone] Red Blood Count 4.35 10^6/uL 4.0-5.4 Hemoglobin [...] Blood Cells % 0 Laboratory test 09/28/2017 [facility] Erythrocyte Sed 20 mm/Hr 0-20 finding [phone] Rate Laboratory test 09/14/2017 [facility] Surgical Interface SEE RESULT 24 finding [phone] Order BELOW Laboratory test 04/24/2017 [facility] Interface SEE RESULT 25, 26 finding [phone] Order BELOW Lipid Profile 02/08/2017 [facility] Triglycerides 159 mg/dL 27 (Trig/Chol/HDL) [phone] Cholesterol 228 mg/dL 28 HDL Cholesterol 54.6 mg/dL 29 LDL Cholesterol 142 mg/dL 30 CBC Auto Diff 02/08/2017 [facility] White Blood Count 10.1 10^3/uL 3.5-10.8 [phone] Red Blood Count 4.39 10^6/uL 4.0-5.4 Hemoglobin [...] Cells % 0.1 Comp Metabolic Panel 02/08/2017 [facility] Sodium 136 mmol/L 133- 145 [phone] Potassium 4.3 mmol/L 3.5-5.0 Chloride 102 mmol/L [...] Egfr Non- 80.6 >60 Egfr 103.7 >60 31 Laboratory test 02/08/2017 [facility] TSH (Thyroid 1.62 mcIU/mL 0.34 -5.60 finding [phone] Stim Horm) CBC Auto Diff 08/16/2015 [facility] White Blood 8.4 10^3/uL 3.5- 10.8 [phone] Count Red Blood Count 4.44 10^6/uL 4.0-5.4 Hemoglobin [...] Cells % 0 Comp Metabolic Panel 08/16/2015 [facility] Sodium 139 mmol/L 133- 145 [phone] Potassium 4.0 mmol/L 3.5-5.0 Chloride 104 mmol/L [...] Egfr Non- 75.4 >60 Egfr 96.9 >60 32 Laboratory 08/16/2015 [facility] Hepatitis C Nonreactive Nonreactive 33 test finding [phone] Antibody Lipid Profile 08/16/2015 [facility] Triglycerides 141 mg/dL 34 (Trig/Chol/HD [phone] L) Cholesterol 226 mg/dL 35 HDL Cholesterol 43.2 mg/dL 36 LDL Cholesterol 155 mg/dL 37 Laboratory 08/16/2015 [facility] TSH (Thyroid Stim 1.43 0.34-5.60 38 test finding [phone] Horm) ?IU/mL Lipid Profile 11/11/2013 [facility] Triglycerides 108 mg/dL 39, 40 (Trig/Chol/HDL [phone] ) Cholesterol 211 mg/dL 41 HDL Cholesterol 46.3 mg/dL 42 LDL Cholesterol 143 mg/dL 43 Surgical 07/02/2006 [facility] Surgical 44 Pathology [phone] Pathology <SEE NOTE> Laboratory test 06/19/2006 [facility] TSH 1.26 MIU/ML 0.34 finding [phone] 0 Comp Metabolic 06/19/2006 [facility] One Over 1.11 Panel [phone] Creatinine Anion Gap 7.0 mmol/L 2-11 45 Albumin/Globulin Ratio 1.8 1-3 Albumin 4.2 GM/DL [...] mg/dL 0.5-1.4 CBC With Manual Diff 06/19/2006 [facility] RBC Morphology NORMAL [phone] White Blood Count 9.4 CUMM 4.8-10.8 Absolute [...] Distribution WDTH 12 % 10.5-15 Lead 06/19/2006 [facility] Lead 1.2 g/dL 0-25.0 46 [phone] Lead Specimen Type VENOUS Lipid Profile 06/12/2006 [facility] Cholesterol/HDL 6.66 High 1-4.97 47 (Trig/Chol/HDL) [phone] Ratio AVERAGE Cholesterol 253 mg/dL High Less Than 200 48 Triglyceride 184 mg/dL 40-200 High Density Lipoprotein 38 mg/dL Low 40-60 49 Low Density Lipoprotein 178 mg/dL High Less Than 100 50 Laboratory test 06/12/2006 [facility] PSA Screening 0.94 NG/ML 0.01- 4.0 51 finding [phone] Laboratory test 06/08/2006 [facility] Culture MANY [COAG 52 finding [phone] Sensitivity NEG S <SEE NOTE> 1 [place] Severe Sepsis and Septic Shock Management Bundle Measure requires all lactic acids initially measuring >2.0 mmol/L be repeated. 2 SEE RESULT BELOW Name: JOHNATHON GOMES : [address]: Johnathon Phoenix MD Acct: [id number] Unit: [id number] AGE: 62 Location: ED Re10/18/17 SEX: M Status: DEP ER SPEC: [id number] NIKOLAY: 10/18/17-[address]: Geri SALVADOR REQ: [id number] RECD: 10/18/17 STATUS: MIRI MASTERS DR: Duncan Waite DO _ SOURCE: BLOOD,VENO SPDESC: ORDERED: Blood Cult Procedure Result Reported Site Aerobic Culture Bottle Final 10/23/17- 1343 ML No Growth Day 5 Anaerobic Culture Bottle Final 10/23/17- 1343 ML No Growth Day 5 * ML - Main Lab . END OF REPORT DEPARTMENT OF PATHOLOGY, [address] [place] [address] Ronald Lorenzana M.D. Director [facility] # [id number] 3 Because ethnic data is not always readily [...] 15-29 5 Kidney failure <15 (or dialysis) 4 A negative result does not exclude infection with Borrelia burgdorferi. Serologic testing as per CDC guidelines may be indicated. ADDITIONAL INFORMATION This test was developed and its performance characteristics determined by [facility] in a manner consistent with CLIA requirements. This test has not been cleared or approved by the U.S. Food and Drug Administration. Test Performed by: [facility] - [address] [address] 5 ADDITIONAL INFORMATION This test was developed and its performance characteristics determined by [facility] in a manner consistent with CLIA requirements. This test has not been cleared or approved by the U.S. Food and Drug Administration. 6 ADDITIONAL INFORMATION This test was developed and its performance characteristics determined by [facility] in a manner consistent with CLIA requirements. This test has not been cleared or approved by the U.S. Food and Drug Administration. 7 ADDITIONAL INFORMATION This test was developed and its performance characteristics determined by [facility] in a manner consistent with CLIA requirements. This test has not been cleared or approved by the U.S. Food and Drug Administration. Test Performed by: [facility] - [address] [address] 8 -- REFERENCE VALUE -- Synovial: <150/mcL Peritoneal: <500/mcL Pleural: <500/mcL Pericardial: <500/mcL 9 Blood is present. No evidence of an acute inflammatory response. No evidence of malignancy. Reviewed by Geri Villanueva MD 10 SEE RESULT BELOW Name: JOHNATHON GOMES : [address]: Johnathon Phoenix MD Acct: [id number] Unit: [id number] AGE: 62 Location: ED Re10/18/17 SEX: M Status: DEP ER SPEC: [id number] NIKOLAY: 10/18/17-1502 [facility] DR: Johnathon Phoenix MD REQ: [id number] RECD: 10/18/17 STATUS: MIRI MASTERS DR: Duncan Waite DO _ SOURCE: JOINT FLUI SPDESC:KNEE ORDERED: BF Cult/GS, MRSA/SA SSTI Procedure Result Reported Site Body Fluid Gram Stain Final 10/19/17- 0721 ML 3+ Neutrophils 1+ Epithelial Cells No Organisms Seen Preparation By Cytospin Smear Body Fluid Culture Final 10/22/17- 0848 ML No Growth Day 4 MRSA/S. aureus SSTI PCR Final 10/18/17- 1729 ML Organism 1 MRSA NEGATIVE Organism 2 S.AUREUS NEGATIVE * ML - Main Lab . END OF REPORT DEPARTMENT OF PATHOLOGY, [address] [place] [address] Ronald Lorenzana M.D. Director [facility] # [id number] 11 What is the body fluid source?: Synovial (Joint) Fluid 12 Because ethnic data is not always readily [...] 15-29 5 Kidney failure <15 (or dialysis) 13 Normal Range 180 to 914 Indeterminate Range 145 to 180 Deficient Range <145 14 -- REFERENCE VALUE -- Synovial: <150/mcL Peritoneal: <500/mcL Pleural: <500/mcL Pericardial: <500/mcL 15 No evidence of acute inflammation or mycobacterial organisms noted. Peripheral blood contamination noted. Reviewed by Dr. Lorenzana 16 [id number] What is the body fluid source?: Synovial (Joint) Fluid 17 SEE RESULT BELOW Name: JOHNATHON GOMES : [address]: Duncan Waite DO Acct: [id number] Unit: [id number] AGE: 62 Location: [facility] Re10/05/17 SEX: M Status: REG REF SPEC: [id number] NIKOLAY: 10/05/17-1123 [facility] [address]: Duncan Waite DO REQ: [id number] RECD: 10/05/175650 STATUS: COMP _ SOURCE: JOINT FLUI SPDESC: ORDERED: BF Cult Bottles, MRSA/SA SSTI COMMENTS: [id number] Procedure Result Reported Site BF Aerobic Culture Bottle Final 10/10/17- 1356 ML No Growth Day 5 BF Anaerobic Culture Bottle Final 10/10/17- 0821 ML Anaerobic Btl Gram Stain Gram Positive Cocci Organism 1 STAPHYLOCOCCUS CAPITIS * This is a Corrected result. * A prior result that was reported as final has been changed. Report corrected on: 10/09/17840 * This is a Corrected result. * A prior result that was reported as final has been changed. Report corrected on: 10/10/17820 1. STAPHYLOCOCCUS CAPITIS M.I.C. RX --------- ------ Penicillin >=0.5 R Clindamycin <=0.25 S Erythromycin <=0.25 S Gentamicin <=0.5 S Linezolid 2 S CONTINUED ON NEXT PAGE DEPARTMENT OF PATHOLOGY, [address] [place] [address] Ronald Lorenzana M.D. Director [facility] # [id number] Patient: JOHNATHON GOMES [id number] (Continued) Specimen: [id number] Collected: 10/05/17 Received: 10/05/17 (Continued) Procedure Result Reported Site BF Anaerobic Culture Bottle Final (continued) 10/10/17- 820 1. STAPHYLOCOCCUS CAPITIS (continued) M.I.C. RX --------- ------ Oxacillin 0.5 S * Quinupristin/Dalfopristin 0.5 S Rifampin <=0.5 S Tetracycline <=1 S Doxycycline - Deduced S * Minocycline - Deduced S Tigecycline <=0.12 S Vancomycin 1 S Imipenem-Deduced S * Ampicillin/Sulbactam-Deduced S Cefazolin-Deduced S * These antibiotics are not available in the [facility] Formulary Contact the Microbiology Department for any additional antibiotic reporting. MRSA/S. aureus SSTI PCR Final 10/05/17- 1643 ML Organism 1 MRSA NEGATIVE Organism 2 S.AUREUS NEGATIVE * ML - Main Lab . END OF REPORT DEPARTMENT OF PATHOLOGY, [address] [place] [address] Ronald Lorenzana M.D. Director [facility] # [id number] 18 SEE RESULT BELOW Name: JOHNATHON GOMES : [address]: Duncan Waite DO Acct: [id number] Unit: [id number] AGE: 62 Location: [facility] Re10/05/17 SEX: M Status: REG REF SPEC: [id number] NIKOLAY: 10/05/171123 SUBM DR: Duncan Waite DO REQ: [id number] RECD: 10/05/17-0779 STATUS: COMP _ SOURCE: BODY FLUID SPDESC: ORDERED: Gram Stain COMMENTS: L KNEE SYNOVIAL FLUID Procedure Result Reported Site Gram Stain Final 10/05/17- 1533 ML 3+ Neutrophils 3+ Nucleated Cells No Organisms Seen BY CYSOSPIN SMEAR * ML - Main Lab . END OF REPORT DEPARTMENT OF PATHOLOGY, [address] [place] [address] Ronald Lorenzana M.D. Director [facility] # [id number] 19 SEE RESULT BELOW Name: JOHNATHON GOMES : [address]: Duncan Waite DO Acct: [id number] Unit: [id number] AGE: 62 Location: [facility] Re10/05/17 SEX: M Status: REG REF SPEC: [id number] NIKOLAY: 10/05/17-1123 [facility] DR: Duncan Waite DO REQ: [id number] RECD: 10/05/17647 STATUS: RES _ SOURCE: JOINT FLUI SPDESC: ORDERED: SAVANNAH Cult Bottles, MRSA/SA SSTI COMMENTS: [id number] Procedure Result Reported Site BF Aerobic Culture Bottle PENDING BF Anaerobic Culture Bottle PENDING MRSA/S. aureus SSTI PCR Final 10/05/17- 1644 ML Organism 1 MRSA NEGATIVE Organism 2 S.AUREUS NEGATIVE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
--- OUTSIDE RECORDS SUMMARY | 2018-01-30 18:25 | XMS REPORT ---
:1955 External Reference #:[id number] Author Organization [facility] Address [address] [place] [address] Phone [phone] Care Team Providers Name Role Phone Duncan Waite DO Care Team Information Production Team Member Unavailable Duncan Waite DO Primary Care Physician Unavailable Payers Type Date Identification Numbers Payment Provider Subscriber Commercial Policy Number: [id number] [facility] López Michel PayID: [id number] [address] [address] [place] [address] Medigap Part B Policy Number: [id number] [facility] López Micheliesha PayID: [id number] [address] [address] [place] [address] Problems Date Description Provider Status Onset: 01/02/2018 [...] Location Provider CPT E/M Dx Office Visit 01/09/2018 9:30a MADELEINE Mahan 00884 L23.89 Office Visit 01/02/2018 2:30p [place] [address] L23.89 Plan of Care Future Appointment(s):01/11/2018 11:30 am - MADELEINE Izaguirre at Nxrbvx3301/09/2018 - Jeremiah Preston PAL23.89 Allergic contact dermatitis due to other agentsComments: Patient tested negative to first read of ALL 36 TRUE patch tests placed. Patient to return in 48 hours for final TRUE patch test read.
[2018-01-30 21:03] LABS: ABS Basophils 0.1 10^3/ul (0-0.2); ABS Eosinophils 0 10^3/ul (0-0.6); ABS Lymphocytes 1.9 10^3/ul (1.0-4.8); ABS Monocytes 1.3 10^3/ul (0-0.8); ABS Neutrophils 10.1 10^3/ul (1.5-7.7); ABS Nucleated RBC 0 10^3/ul; Eosinophil % 0.3 % (0-6); Hematocrit 39 % (42-52); Hemoglobin 13.4 g/dl (14.0-18.0); Lymphocyte % 14.2 % (25-47); Mean Corpuscular HGB Conc 34 g/dl (31-36); Mean Corpuscular Hemoglobin 33 pg (27-31); Mean Corpuscular Volume 95 fL (80-94); Mean Platelet Volume 6.5 um3 (7.4-10.4); Nucleated Red Blood Cells % 0; Platelet Count 240 10^3/ul (150-450); Red Blood Count 4.12 10^6/ul (4.00-5.40); Red Cell Distribution Width 13 % (10.5-15); White Blood Count 13.4 10^3/ul (3.5-10.8)
--- NOTE | 2018-01-30 21:19 | ED ---
Lower Extremity - HPI Summary HPI Summary: A 62 y/o male presents to ED c/o left leg pain. In the ED room, the patient has a pulse of 93 BPM, O2 saturation of 96% and blood pressure of 142/91. As per triage, "Pt reports swelling and pain to left knee and left calf which pt reports he started back in September. Pt reports Dr. Mariann MD did lab work today around 10am, and then called the pt telling him he needed to come to the ED to be evaluated, d/t concern for infection and "need for antibiotics." Pt reports his Left calf is swollen, hard and painful. Pt denies it being red. Pts states pt has had a vascular workout, which was completely normal". As per , the issue that he is presents to [facility] to today dates back to September. She stated that he was working in the garden when he hurt his knee/leg. He has been swollen ever since. In September, vascular testing and all sorts of other imaging was done and it was found that his vessels were patent, however his OFFSET LABEL REWINDER was elevated. His PCP believed it was gout and an infection so he was prescribed colchicine and Abx. He had a reaction to the Abx, as he was vomiting, rash, diarrhea and nausea. He comes to ED today because of increased swelling ( started ) and pain (constant). A MRI was done recently which recealed a medial meniscus tear. He was scheduled for a knee replacement. No current medications. Pt has low-grade fever. - History of Current Complaint Chief Complaint: EDExtremityLower Stated Complaint: LT LEG SWOLLEN Time Seen by Provider: 01/30/18 21:07 Hx Obtained From: Patient Mechanism Of Injury: Unknown Onset of Pain: Prior to Arrival Onset/Duration: Still Present Severity Initially: Severe Severity Currently: Severe Pain Intensity: 8 Pain Scale Used: 0-10 Numeric Timing: Constant Location: Is Discrete @ - Left leg/knee Associated Signs And Symptoms: Positive: Knee Pain Aggravating Factor(s): Standing, Movement Alleviating Factor(s): Nothing - Allergies/Home Medications Allergies/Adverse Reactions: Allergies Allergy/AdvReac Type Severity Reaction Status Date / Time amoxicillin Allergy Nausea And Verified 01/30/18 18:09 Vomiting DAIRY AdvReac Severe "MY BACK Uncoded 01/30/18 18:08 GOES OUT" Home Medications: Home Medications Hydrocodone/Acetaminophen [Hydrocodone-Acetamin 5-325 mg] 1 tab PO Q4HR PRN 02/07 [History Confirmed 01/30/18] PMH/Surg Hx/FS Hx/Imm Hx Endocrine/Hematology History: Denies: Hx Diabetes Cardiovascular History: Denies: Hx Hypertension, Hx Pacemaker/ICD History: Denies: Hx Renal Disease Musculoskeletal History: Denies: Hx Rheumatoid Arthritis, Hx Osteoporosis Sensory History: Denies: Hx Hearing Aid Psychiatric History: Denies: Hx Panic Disorder - Surgical History Surgery Procedure, Year, and Place: appendix age 5 Infectious Disease History: No Infectious Disease History: Denies: Hx Clostridium Difficile, Hx Hepatitis, Hx Human Immunodeficiency Virus (HIV), Hx of Known/Suspected MRSA, Hx Shingles, Hx Tuberculosis, Hx Known/ Suspected VRE, Hx Known/Suspected VRSA, History Other Infectious Disease, Traveled Outside the [place] in Last 30 Days - Family History Family History: Negative for colon CA. Uncle: liver CA. - Social History Alcohol Use: Occasionally Alcohol Amount: 1 GLASS/DAY Substance Use Type: Reports: None Smoking Status (MU): Light Every Day Tobacco Smoker Type: Cigarettes Amount Used/How Often: 1/2 ppd Length of Time of Smoking/Using Tobacco: 30 yrs Have You Smoked in the Last Year: Yes Review of Systems Positive: Fever - Low-grade Positive: Edema - Left leg and knee All Other Systems Reviewed And Are Negative: Yes Physical Exam - Summary Physical Exam Summary: VITAL SIGNS: Reviewed. GENERAL: Patient is a well-developed and nourished male who is lying comfortable in the stretcher. Patient is not in any acute respiratory distress. HEAD AND FACE: No signs of trauma. No ecchymosis, hematomas or skull depressions. No sinus tenderness. EYES: PERRLA, EOMI x 2, No injected conjunctiva, no nystagmus. EARS: Hearing grossly intact. Ear canals and tympanic membranes are within normal limits. MOUTH: Oropharynx within normal limits. NECK: Supple, trachea is midline, no adenopathy, no JVD, no carotid bruit, no c- spine tenderness, neck with full ROM. CHEST: Symmetric, no tenderness at palpation LUNGS: Clear to auscultation bilaterally. No wheezing or crackles. CVS: Regular rate and rhythm, S1 and S2 present, no murmurs or gallops appreciated. ABDOMEN: Soft, non-tender. No signs of distention. No rebound no guarding, and no masses palpated. Bowel sounds are normal. EXTREMITIES: FROM in all major joints, no cyanosis or clubbing. Swelling and tenderness of left knee. Redness, Swelling and tenderness of left lower leg. NEURO: Alert and oriented x 3. No acute neurological deficits. Speech is normal and follows commands. SKIN: Dry and warm Triage Information Reviewed: Yes Vital Signs On Initial Exam: Initial Vitals Temp Pulse Resp BP Pulse Ox 99.0 F 109 18 136/99 96 01/30/18 18:02 01/30/18 18:02 01/30/18 18:02 01/30/18 18:02 01/30/18 18:02 Vital Signs Reviewed: Yes Procedures - Incision and Drainage Left Lower Leg: Left knee Arthrocentesis Site: Verbal consent; knee joint space entered medially; 75 cc pink fluid sent fo Anesthesia: Lidocaine - 2.0% Instrument(s): Needle - 18-guage Diagnostics - Vital Signs Vital Signs Temp Pulse Resp BP Pulse Ox 01/30/18 21:15 95 01/30/18 21:04 96 142/91 96 01/30/18 21:03 95 95 01/30/18 18:02 99.0 F 109 18 136/99 96 - Laboratory Lab Results: Lab Results 01/30/18 Range/Units 20:56 WBC 13.4 H (3.5-10.8) 10^3/ul RBC 4.12 (4.00-5.40) 10^6/ul Hgb 13.4 L (14.0-18.0) g/dl Hct 39 L (42-52) % MCV 95 H (80-94) fL MCH 33 H (27-31) pg MCHC 34 (31-36) g/dl RDW 13 (10.5-15) % Plt Count 240 (150-450) 10^3/ul MPV 6.5 L (7.4-10.4) um3 Neut % (Auto) 75.6 (38-83) % Lymph % (Auto) 14.2 L (25-47) % [place] % (Auto) 9.3 H (0-7) % Eos % (Auto) 0.3 (0-6) % Baso % (Auto) 0.6 (0-2) % Absolute Neuts (auto) 10.1 H (1.5-7.7) 10^3/ul Absolute Lymphs (auto) 1.9 (1.0-4.8) 10^3/ul Absolute Monos (auto) 1.3 H (0-0.8) 10^3/ul Absolute Eos (auto) 0 (0-0.6) 10^3/ul Absolute Basos (auto) 0.1 (0-0.2) 10^3/ul Absolute Nucleated RBC 0 10^3/ul Nucleated RBC % 0 Result Diagrams: 01/30/18 20:56 01/30/18 20:56 Lab Statement: Any lab studies that have been ordered have been reviewed, and results considered in the medical decision making process. - Radiology KNEE XR Radiology Interpretation Completed By: ED Physician - Effusion. Pending official report. Re-Evaluation - Re-Evaluation Second Eval Re-Evaluation Time: 23:19 Comment: Hospitalist was paged. Awaiting response. Lower Extremity Course/Dx - Course Course Of Treatment: A 62 y/o male presents to ED c/o left leg pain. In the ED room, the patient has a pulse of 93 BPM, O2 saturation of 96% and blood pressure of 142/91. A Left Knee XR revealed. In the ED course, the patient recieved Tylenol, Fentayl, Lidocaine and IV fluids. Patient care was discussed with Dr. Post who accepts patient for admission. Patient will be admitted with a diagnosis of left leg cellulitis, gouty arthritis and left knee effusion. Patient is agreeable with this plan. - Diagnoses Provider Diagnoses: Left leg cellulitis, Gouty arthritis, Effusion, left knee - Physician Notifications Discussed Care Of Patient With: [place] Post Time Discussed With Above Provider: 23:45 Instructed by Provider To: Other - Accepts patient for admission Discharge - Sign-Out/Discharge Documenting (check all that apply): Patient Departure - ADMIT, Sign-Out Patient Signing out patient TO: China Post Receiving patient FROM: Rahat Franco - Discharge Plan Condition: Stable Disposition: ADMITTED TO [facility] Referrals: uDncan Waite DO [Primary Care Provider] - - Attestation Statements Document Initiated by Scribe: Yes Documenting Scribe: Keegan Bass Provider For Whom Scribe is Documenting (Include Credential): Rahat Franco MD Scribe Attestation: Keegan Kc, scribed for Rahat Franco MD on 01/31/18 at 0003.
[2018-01-30 21:22] LABS: EGFR Non-African American 83.4 (>60)
[2018-01-30] MEDS ORDERED: Vancomycin(*) 1,000 MG in NS 0.9% 250 ML* 250 ML IVPB ONE (21:24)
[2018-01-30] MEDS ORDERED: Acetaminophen TAB* 325 MG PO ONE (21:24)
[2018-01-30] MEDS ORDERED: fentaNYL* 50 MCG/ML 2 ML VIAL (100 MCG VIAL) IV SLOW PU ONE (21:24)
[2018-01-30] MEDS ORDERED: Ondansetron INJ* 2 MG/ML VIAL IV ONE (21:25)
[2018-01-30] MEDS ORDERED: NS 0.9% 250 ML* 250 ML ONE (21:32)
[2018-01-30] MEDS: NS 0.9% 1000 ML* 2,000 ML IV ONE (21:44)
[2018-01-30 21:49] LABS: INR 1.02 (0.77-1.02)
[2018-01-30] MEDS ORDERED: Lidocaine 2% PF * 5 ML VIAL ONE (21:58)
[2018-01-30] MEDS ORDERED: Vancomycin(*) 1,000 MG BAG/ADDV IVPB ONE (23:21)
[2018-01-31] MEDS ORDERED: Indomethacin CAP* 50 MG PO ONE (00:26)
[2018-01-31] MEDS ORDERED: NS 0.9% 1000 ML* 1,000 ML IV SCH (01:45)
[2018-01-31] MEDS ORDERED: Acetaminophen TAB* 325 MG PO PRN (01:46)
[2018-01-31 01:51] LABS: Urine Appearance Clear; Urine Blood Negative (Negative); Urine Color Yellow; Urine Ketones Negative (Negative); Urine Protein 1+(30 mg/dL) (Negative); Urine Red Blood Cell Trace(0-2/hpf) (Absent); Urine Specific Gravity 1.014 (1.010-1.030); Urine Urobilinogen Negative (Negative); Urine White Blood Cell Trace(0-5/hpf) (Absent)
[2018-01-31] MEDS ORDERED: cefTRIAXone(*) 2 GM in NS 0.9% 100 ML* 100 ML IVPB SCH (02:00)
--- NOTE | 2018-01-31 02:43 | ADMNOTE ---
Subjective Date of Service: 01/31/18 Interval History: this is h/p for admission hpi 62 yr old wm with hx of chronic left lower ext edema since 09/2017 after his gout attack---> unable to go for orif for the knee due to leg edema ( poor fitting as per Dr Ramirez ---> pt had one episode of jaw infection with his tetinium implant ---> presented to er with leg swelling from ankle up to his knee with pain since sunday ---> went to his pcp ---> sent to er ---> intial wbc is close to 14 had knee tap done from er ( 75 cc ) tap showed wbc 9300 with 87 percent neutrophin gram stain pending ---> pt got only vanco from er ---> got rocephin 2 gram daily + vanco 1 mg bid pt had le sono doppler neg of dvt ---> no knee imaging study sent PT SAYS HIS PCP MADE AN APPT FOR HIM WITH RHEUM DUE TO NO SIG IMPROVEMENT OF HIS LEG EDEMA Family History: Findings - denied any sig fhx of htn/dm/cva/cad Social History: Findings - 4-5 cig daily will have one glass of wine with meals walks indep lives with at home Past Medical History: Findings - phx oa chronic lbp with radiculopathy anxiety insominia gerd dysphagia hyperlipidemia dental/jaw implant infection pshx multiple egd Review of Systems - Measurements Intake and Output: Intake and Output Last 24 Hours 01/28/18 01/29/18 01/30/18 01/31/18 06:59 06:59 06:59 06:59 Intake Total 2250 Balance 2250 Weight 200 lb Intake: IV Fluids 2250 - Review of Systems General Comments: 04/03 ros reviewd with pt and as per hpi Objective Active Medications: Acetaminophen (Tylenol Tab*) 650 mg PO Q4H PRN PRN Reason: FEVER/PAIN Hydrocodone Bitart/Acetaminophen ([place] 5-325 Tab*) 1 tab PO Q4HR PRN PRN Reason: PAIN Colchicine (Colcrys*) 0.6 mg PO BID SUSANNAH Sodium Chloride (Ns 0.9% 1000 Ml*) 1,000 mls @ 125 mls/hr IV PER RATE SUSANNAH Stop: 01/31/18 09:44 Ceftriaxone Sodium 2 gm/ (Sodium Chloride) 100 mls @ 200 mls/hr IVPB Q24H [facility] Morphine Sulfate (Morphine Inj ((Syringe))*) 2 mg IV Q4H PRN PRN Reason: PAIN - MILD Omeprazole (Prilosec Cap*) 40 mg PO DAILY [facility] Vital Signs - 8 hr 01/30/18 01/30/18 01/30/18 21:03 21:04 21:15 Pulse Rate 95 96 Respiratory Rate Blood Pressure 142/91 (mmHg) O2 Sat by Pulse 95 96 95 Oximetry 01/30/18 01/30/18 01/30/18 21:34 21:44 22:00 Pulse Rate 95 91 Respiratory 16 Rate Blood Pressure 170/130 (mmHg) O2 Sat by Pulse 96 93 Oximetry 01/30/18 01/30/18 01/30/18 22:04 22:34 23:00 Pulse Rate 96 85 84 Respiratory Rate Blood Pressure 138/93 140/83 (mmHg) O2 Sat by Pulse 93 95 95 Oximetry 01/30/18 01/30/18 01/31/18 23:34 23:36 00:00 Pulse Rate 79 82 73 Respiratory Rate Blood Pressure 139/85 (mmHg) O2 Sat by Pulse 95 96 94 Oximetry 01/31/18 01/31/18 01/31/18 00:04 00:34 01:00 Pulse Rate 77 74 74 Respiratory Rate Blood Pressure 133/77 134/79 (mmHg) O2 Sat by Pulse 93 96 96 Oximetry 01/31/18 01/31/18 01/31/18 01:04 01:34 02:00 Pulse Rate 79 76 70 Respiratory Rate Blood Pressure 137/80 128/83 (mmHg) O2 Sat by Pulse 94 95 Oximetry 01/31/18 02:04 Pulse Rate 70 Respiratory Rate Blood Pressure 161/85 (mmHg) O2 Sat by Pulse 95 Oximetry Eyes: No Scleral Icterus, PERRLA Ears/Nose/Mouth/Throat: Clear Oropharnyx, Mucous Membranes Moist, - - no upper teeth Neck: NL Appearance and Movements; NL JVP, Trachea Midline, No Thyroid Enlargement, Masses Respiratory: Symmetrical Chest Expansion and Respiratory Effort, Clear to Auscultation Cardiovascular: NL Sounds; No Murmurs; No JVD, RRR Abdominal: NL Sounds; No Tenderness; No Distention Extremities: - - + left le from ankle to knee erthyema/warmth/edema 3+ able to raise ue and le edema against gravity Skin: - - erythema/warmth of left lower ext from ankle upwards to knee Neurological: Alert and Oriented x 3, NL Sensation, NL Muscle Strength and Tone Result Diagrams: 02/01/18 05:02 02/01/18 05:02 Additional Lab and Data: Lab Results 01/30/18 Range/Units 20:56 WBC 13.4 H (3.5-10.8) 10^3/ul RBC 4.12 (4.00-5.40) 10^6/ul Hgb 13.4 L (14.0-18.0) g/dl Hct 39 L (42-52) % MCV 95 H (80-94) fL MCH 33 H (27-31) pg MCHC 34 (31-36) g/dl RDW 13 (10.5-15) % Plt Count 240 (150-450) 10^3/ul MPV 6.5 L (7.4-10.4) um3 Neut % (Auto) 75.6 (38-83) % Lymph % (Auto) 14.2 L (25-47) % [place] % (Auto) 9.3 H (0-7) % Eos % (Auto) 0.3 (0-6) % Baso % (Auto) 0.6 (0-2) % Absolute Neuts (auto) 10.1 H (1.5-7.7) 10^3/ul Absolute Lymphs (auto) 1.9 (1.0-4.8) 10^3/ul Absolute Monos (auto) 1.3 H (0-0.8) 10^3/ul Absolute Eos (auto) 0 (0-0.6) 10^3/ul Absolute Basos (auto) 0.1 (0-0.2) 10^3/ul Absolute Nucleated RBC 0 10^3/ul Nucleated RBC % 0 Microbiology and Other Data: Microbiology 01/30/18 22:43 Skin and Soft Tissue MRSA/MSSA (PCR - Final Joint Fluid(Synovial) Mrsa Negative S.aureus Negative 01/30/18 22:43 Gram Stain - Final Body Fluid Assess/Plan/Problems-Billing Assessment: 62 yr old wm with hx of chronic left lower ext edema since his gouty attack in september presented with worsening left lower ext ankle to knee with septic knee joint since last sunday. pt lower ext sono neg of dvt ---> vanco/rocephin ortho called in - Patient Problems (1) Cellulitis of left leg without foot Status: Acute Code(s): L03.116 - CELLULITIS OF LEFT LOWER LIMB SNOMED Code(s ): 257542772 Comment: (2) Septic joint of left knee joint Status: Acute Code(s): M00.9 - PYOGENIC ARTHRITIS, UNSPECIFIED SNOMED Code(s ): 949771528 Comment: ortho consult Dr Ramirez office called in await (3) SIRS (systemic inflammatory response syndrome) Status: Acute Code(s): R65.10 - SIRS OF NON-INFECTIOUS ORIGIN W/O ACUTE ORGAN DYSFUNCTION SNOMED Code(s): 201245744 Comment: abx with rocephin/vanco (4) Leg edema, left Status: Acute Code(s): R60.0 - LOCALIZED EDEMA SNOMED Code(s): 223308424 Comment: - LLE looks unchanged from yesterday - Doppler ultrasound negative for DVT, however did demonstrate complex fluid collection measuring up to 14.8cm, 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 Joint aspiration fluid w/o signs of infection so no I&D required. - Pseudogout identified as detailed above.
[2018-01-31] MEDS: cefTRIAXone(*) 2 GM in NS 0.9% 100 ML* 100 ML IVPB SCH (04:21)
[2018-01-31] MEDS: HYDROcodone/ACETAMIN 5-325 MG* 1 TAB PO PRN ×2 (04:21→13:18)
[2018-01-31] MEDS: Colchicine* 0.6 MG TAB PO SCH ×2 (07:10→21:56)
[2018-01-31] MEDS: Omeprazole CAP* 20 MG PO SCH (07:10)
[2018-01-31 07:11] LABS: INR 1.06 (0.77-1.02)
--- NOTE | 2018-01-31 08:00 | RAD ---
Indication: Sudden onset LEFT knee swelling without proceeding injury. Comparison: November 13, 2017 Technique: LEFT knee: AP, tunnel, lateral, sunrise views. Report: Large suprapatellar joint effusion. Mild osteophytosis. Moderate medial joint compartment joint space narrowing. Negative for fracture. Peripheral vascular calcifications. Mild anterior soft tissue swelling. IMPRESSION: #. Large suprapatellar joint effusion increased over the prior exam. Moderate osteoarthritis. R1
[2018-01-31 08:29] LABS: Uric Acid 5.2 mg/dL (4.4-7.6)
[2018-01-31] MEDS ORDERED: Nicotine Inhaler* 10 MG AMP INH PRN (08:41)
[2018-01-31] MEDS ORDERED: Mouth Piece, Nicotine* 1 EACH CARTRIDGE INH PRN ×2 (08:41)
[2018-01-31] MEDS: Morphine VIAL* 4 MG/ML VIAL (1 ml vial) IV PRN ×2 (09:11→15:53)
[2018-01-31] MEDS: Nicotine PATCH 21 MG/24 HR* PATCH TRANSDERM SCH (09:12)
--- NOTE | 2018-01-31 11:01 | RAD ---
HISTORY: DVT COMPARISONS: September 24, 2017 TECHNIQUE: Multiple transverse and longitudinal ultrasound images were obtained of the left lower extremity from the level of the common femoral vein inferiorly through to the infrapopliteal veins using grayscale, color Doppler, and spectral Doppler imaging with and without compression and with augmentation. Comparison images were obtained of the contralateral common femoral vein. FINDINGS: VEINS: The venous system of the left lower extremity is compressible throughout its course, with normal flow on color Doppler imaging and normal response to augmentation on spectral Doppler imaging. SOFT TISSUES: There is a complex fluid collection of the left lower extremity extending from the popliteal fossa to the medial calf measuring 4.9 x 2.9 x 14.8 cm in size. OTHER FINDINGS: None. IMPRESSION: 1. NO LEFT LOWER EXTREMITY DEEP VEIN THROMBOSIS 2. COMPLEX FLUID COLLECTION OF THE LEFT LOWER EXTREMITY MEASURING UP TO 14.8 CM IN SIZE.
[2018-01-31 11:45] LABS: ABS Basophils 0.1 10^3/ul (0-0.2); ABS Eosinophils 0.1 10^3/ul (0-0.6); ABS Monocytes 1.1 10^3/ul (0-0.8); ABS Neutrophils 6.8 10^3/ul (1.5-7.7); ABS Nucleated RBC 0 10^3/ul; Eosinophil % 1.1 % (0-6); Hematocrit 35 % (42-52); Lymphocyte % 19.9 % (25-47); Mean Corpuscular HGB Conc 34 g/dl (31-36); Mean Corpuscular Hemoglobin 33 pg (27-31); Mean Corpuscular Volume 95 fL (80-94); Mean Platelet Volume 6.6 um3 (7.4-10.4); Nucleated Red Blood Cells % 0; Platelet Count 208 10^3/ul (150-450); Red Blood Count 3.67 10^6/ul (4.00-5.40); Red Cell Distribution Width 13 % (10.5-15); White Blood Count 10.1 10^3/ul (3.5-10.8)
--- NOTE | 2018-01-31 11:57 | PN ---
Subjective Date of Service: 01/31/18 Interval History: Pt resting comfortably. Endorses leg pain has improved with morphine, however is still swollen and tender. While moves left knee, pain feels like "sharp knives." When not moving, pain in thigh feels like "bee stings" and pain in calf feels like "growing pains." Denies chest pain, shortness of breath, N/V/D/ C abdominal pain. Family History: Findings - denied any sig fhx of htn/dm/cva/cad Social History: Findings - 4-5 cig daily will have one glass of wine with meals walks indep lives with at home Past Medical History: Findings - phx oa chronic lbp with radiculopathy anxiety insominia gerd dysphagia hyperlipidemia dental/jaw implant infection pshx multiple egd Objective Active Medications: Acetaminophen (Tylenol Tab*) 650 mg PO Q4H PRN PRN Reason: FEVER/PAIN Hydrocodone Bitart/Acetaminophen ([place] 5-325 Tab*) 1 tab PO Q4HR PRN PRN Reason: PAIN Last Admin: 01/31/18 04:21 Dose: 1 tab Colchicine (Colcrys*) 0.6 mg PO BID [facility] Last Admin: 01/31/18 07:10 Dose: Not Given Device (Nicotine Mouth Piece*) 1 each INH .USE WITH NICOTROL PRN PRN Reason: CRAVING Ceftriaxone Sodium 2 gm/ (Sodium Chloride) 100 mls @ 200 mls/hr IVPB 0400 [facility] Last Admin: 01/31/18 04:21 Dose: 200 mls/hr Morphine Sulfate (Morphine Vial*) 2 mg IV Q4H PRN PRN Reason: PAIN - MILD Last Admin: 01/31/18 09:11 Dose: 2 mg Nicotine (Nicotine Inhaler*) 10 mg INH Q2H PRN PRN Reason: CRAVING Nicotine (Nicotine Patch 21 Mg/24 Hr*) 1 patch TRANSDERM DAILY [facility] Last Admin: 01/31/18 09:12 Dose: Not Given Omeprazole (Prilosec Cap*) 40 mg PO DAILY [facility] Last Admin: 01/31/18 07:10 Dose: Not Given Pharmacy Profile Note (Nicotine Patch Removal Note*) 1 note PATCH OFF 2100 [facility] Vital Signs - 8 hr 01/31/18 01/31/18 01/31/18 04:21 07:08 07:27 Temperature 97.4 F Pulse Rate 71 Respiratory 16 16 16 Rate Blood Pressure 133/56 (mmHg) O2 Sat by Pulse 98 Oximetry 01/31/18 01/31/18 01/31/18 07:30 07:48 09:11 Temperature Pulse Rate Respiratory 16 18 18 Rate Blood Pressure (mmHg) O2 Sat by Pulse Oximetry 01/31/18 01/31/18 01/31/18 09:28 09:35 11:15 Temperature 98.2 F Pulse Rate 85 Respiratory 18 18 16 Rate Blood Pressure 113/63 (mmHg) O2 Sat by Pulse 98 Oximetry Oxygen Devices in Use Now: None, Nasal Cannula Eyes: No Scleral Icterus, PERRLA Ears/Nose/Mouth/Throat: NL Teeth, Lips, Gums, Mucous Membranes Moist Neck: NL Appearance and Movements; NL JVP, Trachea Midline Respiratory: Symmetrical Chest Expansion and Respiratory Effort, Clear to Auscultation Cardiovascular: NL Sounds; No Murmurs; No JVD, RRR Abdominal: NL Sounds; No Tenderness; No Distention Extremities: No Clubbing, Cyanosis - Left lower extremety edema from ankle to knee. Calf warm and mildly erythmatous. Skin: No Rash or Ulcers, No Nodules or Sclerosis Neurological: Alert and Oriented x 3 Lines/Tubes/Other Access: Clean, Dry and Intact Peripheral IV Result Diagrams: 01/31/18 11:35 01/30/18 20:56 Additional Lab and Data: Lab Results 01/30/18 Range/Units 20:56 WBC 13.4 H (3.5-10.8) 10^3/ul RBC 4.12 (4.00-5.40) 10^6/ul Hgb 13.4 L (14.0-18.0) g/dl Hct 39 L (42-52) % MCV 95 H (80-94) fL MCH 33 H (27-31) pg MCHC 34 (31-36) g/dl RDW 13 (10.5-15) % Plt Count 240 (150-450) 10^3/ul MPV 6.5 L (7.4-10.4) um3 Neut % (Auto) 75.6 (38-83) % Lymph % (Auto) 14.2 L (25-47) % [place] % (Auto) 9.3 H (0-7) % Eos % (Auto) 0.3 (0-6) % Baso % (Auto) 0.6 (0-2) % Absolute Neuts (auto) 10.1 H (1.5-7.7) 10^3/ul Absolute Lymphs (auto) 1.9 (1.0-4.8) 10^3/ul Absolute Monos (auto) 1.3 H (0-0.8) 10^3/ul Absolute Eos (auto) 0 (0-0.6) 10^3/ul Absolute Basos (auto) 0.1 (0-0.2) 10^3/ul Absolute Nucleated RBC 0 10^3/ul Nucleated RBC % 0 Microbiology and Other Data: Microbiology 01/30/18 22:43 Skin and Soft Tissue MRSA/MSSA (PCR - Final Joint Fluid(Synovial) Mrsa Negative S.aureus Negative 01/30/18 22:43 Gram Stain - Final Body Fluid Assess/Plan/Problems-Billing Assessment: 62 yr old male with hx of GERD, chronic left lower extremity edema since a gout attack in September who presented to the ED with left lower extremity edema from the ankle to knee, along with warmth and erythema on left calf that has been worsening since Sunday, arousing concern for cellulitis vs septic knee joint, for which he was started on vanco/ceftriaxone. Sonogram was negative for DVT and has had recent vascular workup which was negative. Joint fluid was aspirated (gram stain negative) and Ortho was consulted, but felt no need for washout and that septic knee was unlikely. CPPD crystals identified in synovial fluid. 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 CRP 112.65 (Was WNL in September when initially presented) - Ortho following: feels leg edema unlikely to be from septic joint and no need for washout. Joint aspiration synovial fluid: WBC 9013, 87% fluid neutrophils - gram stain negative, MRSA negative, S. Aureus negative. - CPPD crystals identified in synovial fluid. Will call rheumatology tomorrow to see if they will see him as inpatient - Initially treated with rocephin and vanco for septic knee and cellulitis, however coverage narrowed to just rocephin given MRSA and S. Aureus negative. ID will see him tomorrow given he has previous incident treated with Doxy, but is coming in again with similar symptoms (2) Osteoarthritis of knee Current Visit: Yes Status: Acute Code(s): M17.10 - UNILATERAL PRIMARY OSTEOARTHRITIS, UNSPECIFIED KNEE SNOMED Code(s): 206402321 Comment: - Knee Xray: Large suprapatellar joint effusion increased over prior exam. Moderate osteoarthritis. - Continue pain management with PRN [place] and PRN morphine (3) GERD (gastroesophageal reflux disease) Current Visit: Yes Status: Acute Code(s): K21.9 - GASTRO-ESOPHAGEAL REFLUX DISEASE WITHOUT ESOPHAGITIS SNOMED Code(s): 282663386 Comment: - Continue home omeprazole (4) DVT prophylaxis Current Visit: Yes Status: Acute Code(s): SPW4119 - SNOMED Code(s): 069109333 Comment: - SQ heparin (5) DNR (do not resuscitate) Current Visit: Yes Status: Acute Status and Disposition: Inpatient Attending: Kamila Grimaldo
[2018-01-31] MEDS ORDERED: Nicotine Patch Removal NOTE PATCH OFF SCH (21:00)
[2018-01-31] MEDS: Heparin VIAL(*) 5000 UNITS/ML VIAL (FIVE THOUSAND) SUBCUT SCH (21:57)
--- NOTE | 2018-01-31 22:27 | CONS ---
ORTHOPEDIC CONSULTATION: DATE OF CONSULT: 01/31/18. CHIEF COMPLAINT: Left knee pain. HISTORY OF PRESENT ILLNESS: Mr. Gomes is a 62-year-old gentleman who was admitted to [facility] on 01/31/18 with left leg cellulitis, left knee pain and concern of infection. He has a history of left lower extremity edema, history of gout, as well as knee arthritis. The patient has had one week of increasingly severe left knee pain and swelling. His primary care physician lee some labs and told him to go to the emergency room because he could have an infection. He was seen at [facility] Emergency Room and his knee was aspirated. He was admitted to the [facility]. I am consulted for orthopedic care and to help exclude any infection in the knee joint. Today, the patient is reporting 6/10 pain in the knee. He has difficulties bending the knee and locking on the knee. PAST MEDICAL HISTORY: Chronic arthritis, chronic low back pain with radiculopathy, anxiety, insomnia, GERD, dysphagia, hyperlipidemia, dental or jaw implant infection. PAST SURGICAL HISTORY: Multiple EGDs. HOME MEDICATIONS: 1. Colchicine 0.6 mg p.o. b.i.d. 2. Acetaminophen 650 mg q.4 hours p.r.n. 3. [place] 5/325 one tab q.4 hours p.r.n. 4. Omeprazole 40 mg p.o. q. daily. ALLERGIES: AMOXICILLIN and DAIRY. FAMILY HISTORY: None. SOCIAL HISTORY: The patient lives with his . He has one glass of wine daily with meals. Less than half a pack of cigarettes per day. Walks independently, lives with his . REVIEW OF SYSTEMS: Fourteen systems were reviewed with the patient today. Positive for left knee pain and swelling and left leg swelling. Negative for fever, chills, chest pain or shortness of breath. Otherwise, the patient reports review of systems is negative or not relevant. PHYSICAL EXAM: Vitals: Temperature 98.5, pulse of 62, blood pressure 115/58. General: The patient is a well nourished male, in no apparent distress, alert and oriented x3. Pleasant mood and appropriate affect. Gait: The patient's gait is not assessed. Left lower extremity: The patient's skin is intact. He has his knee up on a pillow in bed. He has mild to moderate effusion at the knee joint, tenderness along the medial joint line. No significant erythema at the knee. Some mild tenderness along the calf with some warmth. There is no significant erythema. He has 5/5 ankle dorsiflexion, plantarflexion strength. Full sensation to light touch and 2+ palpable DP pulse. DIAGNOSTIC STUDIES/LAB DATA: Laboratory study show white blood cells from 01/30 were 13.4, today are 10.1, platelets 208 today. No left shift. Hematocrit 35, INR 1.06. ESR 51. CRP 112. Sodium 137, potassium 3.8, chloride 103, urine is negative. Synovial fluid is reviewed from 01/30/18 aspiration which showed no obvious crystals. White blood cell count 9000. Microbiology from the patient's knee joint aspiration shows negative gram-stain , negative MRSA, negative staph aureus, initial PCR. Cultures and sensitivities are pending. X-ray of the patient's left knee is reviewed which shows some arthritic changes, venous Doppler from 01/31/18, shows no obvious DVT but there is a fluid collection of the lower extremity from the popliteal fossa to the medial calf. This could be a ruptured Calderon cyst. ASSESSMENT AND PLAN: Mr. Gomes is a 62-year-old gentleman with a long history of left knee arthritis and recurrent swelling. He is admitted for cellulitis which I think is dramatically improved by the time I am consulted today. His knee aspiration is not indicative of infection at this point. We discussed the results with the patient. He understands we will of course follow the cultures and sensitivities but at this time, I do not recommend a formal I and D of the left knee. The patient agrees to follow up with me as an outpatient for his knee arthritis. He should be mobilized in my opinion with physical therapy. He can have antiinflammatories for pain control. Thank you for this orthopedic consultation. I will follow him up. [id number]/[facility] #: [id number] JOZEF
[2018-02-01] MEDS: cefTRIAXone(*) 2 GM in NS 0.9% 100 ML* 100 ML IVPB SCH (03:44)
[2018-02-01 05:18] LABS: ABS Basophils 0.1 10^3/ul (0-0.2); ABS Eosinophils 0.1 10^3/ul (0-0.6); ABS Lymphocytes 1.9 10^3/ul (1.0-4.8); ABS Monocytes 0.9 10^3/ul (0-0.8); ABS Neutrophils 7.6 10^3/ul (1.5-7.7); ABS Nucleated RBC 0 10^3/ul; Eosinophil % 1.1 % (0-6); Hematocrit 35 % (42-52); Hemoglobin 12.1 g/dl (14.0-18.0); Lymphocyte % 18.1 % (25-47); Mean Corpuscular HGB Conc 35 g/dl (31-36); Mean Corpuscular Hemoglobin 33 pg (27-31); Mean Corpuscular Volume 95 fL (80-94); Mean Platelet Volume 6.9 um3 (7.4-10.4); Nucleated Red Blood Cells % 0; Platelet Count 210 10^3/ul (150-450); Red Cell Distribution Width 13 % (10.5-15); White Blood Count 10.6 10^3/ul (3.5-10.8)
[2018-02-01 05:21] LABS: INR 0.97 (0.77-1.02)
[2018-02-01 05:32] LABS: EGFR Non-African American 108.9 (>60)
[2018-02-01] MEDS: Heparin VIAL(*) 5000 UNITS/ML VIAL (FIVE THOUSAND) SUBCUT SCH ×2 (05:52→14:23)
[2018-02-01] MEDS: Nicotine PATCH 21 MG/24 HR* PATCH TRANSDERM SCH (07:48)
[2018-02-01] MEDS: Colchicine* 0.6 MG TAB PO SCH (07:48)
[2018-02-01] MEDS: Omeprazole CAP* 20 MG PO SCH (07:48)
--- NOTE | 2018-02-01 12:07 | CONS ---
CONSULTATION REPORT: DATE OF CONSULT: 02/01/18 REQUESTING PROVIDER: Priyanka Hilliard NP CONSULTING SERVICE: Infectious Disease. REASON FOR CONSULT: Left knee pain and swelling. IMPRESSION: 1. Four months of intermittent left knee severe pain and swelling with morning stiffness or stiffnes s with immobility, elevated inflammatory markers. Synovial fluid shows 9000 white cells and calcium pyrophosphate crystals. Cultures were negative now and then in September when this was cultured initially . There was a staph capitis present on the , which was gone on and I think was a contaminan t. I think his symptoms are most likely due to pseudogout and possibly ruptured Calderon's cyst. He had a Lyme antibody that was negative in September as well as Lyme PCR and the synovial fluid was negative, s o I do not think he has Lyme at the time of Lyme arthritis. The patient is uniformly IgG positive. 2. History of gout. RECOMMENDATIONS: We will stop his ceftriaxone. Dr. Shah is going to see him for treatment of pseu dogout. Follow his knee exam here. HISTORY OF PRESENT ILLNESS: This is a 62-year-old man with history of gout, osteoarthritis of the le ft knee, admitted with left knee pain and swelling. This developed in September, no particular injury set it off. He had the joint aspirated at that time, 10/05/17, there were 40 white cells, the culture g rew staph capitis. Two weeks later, there were 230 white cells. Each time, no crystals were seen and a Lyme PCR was negative. He was intermittently treated with steroid injections, antibiotics without really much improvement. The knee pain is severe. When stiffness develops, it goes away. If he st ays off his foot for an hour or so but keeps the leg moving, then he can walk on the knee again for a couple of hours until it becomes too stiff and severely painful. He has swelling behind the knee an d down to the posterior leg. He has had no fevers. He has had occasional chills and mild sweats. H e more recently because of ongoing knee pain had a white blood cell count drawn as an outpatient, was elevated and directed to the emergency room for admission. He had another aspiration. At this time , the synovial fluid showed 9000 white cells, 87% neutrophils and calcium pyrophosphate crystals. Cu ltures are negative at 24 hours. The blood culture is negative. Urine culture is negative. He has h ad no fever here. His white blood cell count was 13, it is 10,000 today. His C-reactive protein is 1 12. He has been on ceftriaxone for a couple of days without any issues. PAST MEDICAL HISTORY: 1. Gout. 2. Osteoarthritis. 3. Low back pain. 4. Obesity. 5. Allergy to AMOXICILLIN. MEDICATIONS: 1. Tylenol. 2. Ceftriaxone 2 g a day. 3. Colchicine. 4. Heparin subcutaneous injection. 5. Morphine as needed. 6. Nicotine patch. FAMILY HISTORY: No recurrent infections. SOCIAL HISTORY: He lives in [place] with his . He has no travel. REVIEW OF SYSTEMS: All negative except as noted above. PHYSICAL EXAM: Vital Signs: Temperature 36.7, heart rate 60, respiratory rate 18, blood pressure 13 6/68, oxygen saturation 98% on room air. In general, he is awake, not in distress. Neurologic: He is oriented x3. Follows all commands. Sensation is intact to light touch both legs. HEENT: There is no thrush. Neck is supple without mass. Heart is regular rate and rhythm without murmurs, rubs, or gallops. Lungs are clear to auscultation bilaterally. Abdomen is soft, nontender, nondistended. There are bowel sounds present. Skin: There is no rash or splinter hemorrhages. Musculoskeletal: He has left knee and lower leg diffuse edema without crepitus or fluctuance. There is mild warmth ab out the knee and tenderness to light touch. DIAGNOSTIC STUDIES/LAB DATA: Creatinine 0.7. CRP 112. White blood cell count 10, hemoglobin 12, pl atelets 210,000. Knee x-ray from the 10th shows a large suprapatellar joint effusion and osteoarthritic changes. Please see impressions and recommendations outlined above, which I have discussed with Priyanka travis NP. Thanks for asking me to see Mr. Gomes in consultation. [id number]/[facility] #: [id number]
[2018-02-01] MEDS ORDERED: Ondansetron INJ* 2 MG/ML VIAL IV PRN (13:42)
--- NOTE | 2018-02-01 13:42 | PN ---
Subjective Date of Service: 02/01/18 Interval History: Pt reports knee pain is 4/10 with medication, but 10/10 with weight bearing. Pt experiencing some nausea after eating lunch (no vomiting), but endorses multiple food sensitivities and thinks he might have eaten something that doesn' t agree with him. Mild abdominal tenderness. Denies chest pain, palpitations, dizziness, dysuria, constipation. Family History: Findings - denied any sig fhx of htn/dm/cva/cad Social History: Findings - 4-5 cig daily will have one glass of wine with meals walks indep lives with at home Past Medical History: Findings - phx oa chronic lbp with radiculopathy anxiety insominia gerd dysphagia hyperlipidemia dental/jaw implant infection pshx multiple egd Objective Active Medications: Acetaminophen (Tylenol Tab*) 650 mg PO Q4H PRN PRN Reason: FEVER/PAIN Hydrocodone Bitart/Acetaminophen ([place] 5-325 Tab*) 1 tab PO Q4HR PRN PRN Reason: PAIN Last Admin: 01/31/18 13:18 Dose: 1 tab Colchicine (Colcrys*) 0.6 mg PO BID [facility] Last Admin: 02/01/18 07:48 Dose: 0.6 mg Device (Nicotine Mouth Piece*) 1 each INH .USE WITH NICOTROL PRN PRN Reason: CRAVING Heparin Sodium (Porcine) (Heparin Vial(*)) 5,000 units SUBCUT Q8HR [facility] Last Admin: 02/01/18 05:52 Dose: 5,000 units Morphine Sulfate (Morphine Vial*) 2 mg IV Q4H PRN PRN Reason: PAIN - MILD Last Admin: 01/31/18 15:53 Dose: 2 mg Nicotine (Nicotine Inhaler*) 10 mg INH Q2H PRN PRN Reason: CRAVING Nicotine (Nicotine Patch 21 Mg/24 Hr*) 1 patch TRANSDERM DAILY [facility] Last Admin: 02/01/18 07:48 Dose: Not Given Omeprazole (Prilosec Cap*) 40 mg PO DAILY [facility] Last Admin: 02/01/18 07:48 Dose: 40 mg Pharmacy Profile Note (Nicotine Patch Removal Note*) 1 note PATCH OFF 2100 [facility] Last Admin: 01/31/18 21:56 Dose: Not Given Vital Signs - 8 hr 02/01/18 02/01/18 07:29 07:51 Temperature 98.1 F Pulse Rate 61 Respiratory 18 16 Rate Blood Pressure 136/68 (mmHg) O2 Sat by Pulse 98 97 Oximetry Oxygen Devices in Use Now: None Eyes: No Scleral Icterus, PERRLA Ears/Nose/Mouth/Throat: NL Teeth, Lips, Gums, Mucous Membranes Moist Neck: NL Appearance and Movements; NL JVP Respiratory: Symmetrical Chest Expansion and Respiratory Effort, Clear to Auscultation Cardiovascular: NL Sounds; No Murmurs; No JVD, RRR, No Edema Abdominal: - - NL sounds; No distension; Mild diffuse tenderness to palpation. Lymphatic: - - left pre-auricular adenopathy Extremities: No Clubbing, Cyanosis, - - Left lower extemity edemetous from ankle to knee. Left calf warm to touch, but erythema appears to be resolving. Skin: No Rash or Ulcers Neurological: Alert and Oriented x 3, - - Muscle strength WNL on BUE and right LE, but unable to fully move left foot and leg due to pain Lines/Tubes/Other Access: Clean, Dry and Intact Peripheral IV Result Diagrams: 02/01/18 05:02 02/01/18 05:02 Additional Lab and Data: Lab Results 01/30/18 Range/Units 20:56 WBC 13.4 H (3.5-10.8) 10^3/ul RBC 4.12 (4.00-5.40) 10^6/ul Hgb 13.4 L (14.0-18.0) g/dl Hct 39 L (42-52) % MCV 95 H (80-94) fL MCH 33 H (27-31) pg MCHC 34 (31-36) g/dl RDW 13 (10.5-15) % Plt Count 240 (150-450) 10^3/ul MPV 6.5 L (7.4-10.4) um3 Neut % (Auto) 75.6 (38-83) % Lymph % (Auto) 14.2 L (25-47) % Tripp % (Auto) 9.3 H (0-7) % Eos % (Auto) 0.3 (0-6) % Baso % (Auto) 0.6 (0-2) % Absolute Neuts (auto) 10.1 H (1.5-7.7) 10^3/ul Absolute Lymphs (auto) 1.9 (1.0-4.8) 10^3/ul Absolute Monos (auto) 1.3 H (0-0.8) 10^3/ul Absolute Eos (auto) 0 (0-0.6) 10^3/ul Absolute Basos (auto) 0.1 (0-0.2) 10^3/ul Absolute Nucleated RBC 0 10^3/ul Nucleated RBC % 0 Microbiology and Other Data: Microbiology 01/30/18 22:43 Skin and Soft Tissue MRSA/MSSA (PCR - Final Joint Fluid(Synovial) Mrsa Negative S.aureus Negative 01/30/18 22:43 Gram Stain - Final Body Fluid Assess/Plan/Problems-Billing Assessment: 62 yr old male with hx of GERD, chronic left lower extremity edema since a gout attack in September who presented to the ED with left lower extremity edema from the ankle to knee, along with warmth and erythema on left calf that has been worsening since Sunday, arousing concern for cellulitis vs septic knee joint, for which he was started on vanco/ceftriaxone. Sonogram was negative for DVT and has had recent vascular workup which was negative. Joint fluid was aspirated (gram stain negative) and Ortho was consulted, but felt no need for washout and that septic knee was unlikely. CPPD crystals identified in synovial fluid. - Patient Problems (1) Pseudogout Status: Acute Code(s): M11.20 - OTHER CHONDROCALCINOSIS, UNSPECIFIED SITE SNOMED Code(s): 052119185 Comment: - CPPD crystals found in join aspiratew consistent with pseudogout - Pt was andrew by Dr Shah who recommended 5 day course of 40mg prednisone daily to decrease inflammation. 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 Joint aspiration fluid w/o signs of infection so no I&D required. - Pseudogout identified as detailed above. (3) Osteoarthritis of knee Status: Acute Code(s): M17.10 - UNILATERAL PRIMARY OSTEOARTHRITIS, UNSPECIFIED KNEE SNOMED Code(s): 686365088 Comment: - Knee Xray: Large suprapatellar joint effusion increased over prior exam. Moderate osteoarthritis. - Continue pain management with PRN [place] and PRN morphine - Patient will follow up with Dr Ramirez as an outpatient to discuss osteoarthritis management and possible surgical intervention for known meniscal injury (4) GERD (gastroesophageal reflux disease) Status: Acute Code(s): K21.9 - GASTRO-ESOPHAGEAL REFLUX DISEASE WITHOUT ESOPHAGITIS SNOMED Code(s): 488751124 Comment: - Continue home omeprazole (5) DVT prophylaxis Status: Acute Code(s): QYT1012 - SNOMED Code(s): 825409514 Comment: - SQ heparin (6) DNR (do not resuscitate) Status: Acute Status and Disposition: Discharge to home Attending: Manish Gracia
[2018-02-01] MEDS: HYDROcodone/ACETAMIN 5-325 MG* 1 TAB PO PRN (14:28)
--- NOTE | 2018-02-01 15:50 | CONSULT ---
Consult Consult: Mr. Michel is a 62 year old man with pseudogout. I recommend a trial of Prednisone at 40mg daily for 5 days and follow up with me early next week for follow up
[2018-02-01 16:41] VITALS: BP 141/68
--- NOTE | 2018-02-01 17:24 | CONS ---
CONSULTATION REPORT: DATE OF CONSULT: 02/01/18 CONSULTING PHYSICIAN: Priyanka Hilliard NP REASON FOR CONSULT: Pseudogout. CHIEF COMPLAINT: Knee pain. HISTORY OF PRESENT ILLNESS: Mr. Gomes is a 62-year-old male with a history of a meniscal injury, for which he is currently planning on having surgery with Dr. Ramirez, however since early September of this year he has had intermittent swelling and pain of his left knee. It has progressed to the point phillip t he was unable to bear weight. He of note also has a longstanding smoking history and has had issue s of jaw infection with titanium implants in the past. While this has been stable, his left knee has been progressively more uncomfortable with difficulty with ambulation. He was advised based on his presentation as well as the inflammation by his primary care doctor to go to the emergency room [facility] of worsening pain and swelling. There was some concern initially about a possible septic arthropa thy as well as overlying cellulitis, however since he has been here in the hospital this was ruled ou t and indeed a joint aspiration revealed no infection. It did reveal a CPPD crystal consistent with pseudogout. A 75 mL of fluid was obtained with 9300 white cells and 87% neutrophils. Gram stain was negative. He did receive antibiotics including vancomycin from the emergency room and Rocephin. The se have been placed on hold by Infectious Disease as it was felt that he did not have an infectious p rocess. In terms of his underlying arthropathy, he has been on colchicine as needed for his flare. He has had no prior episodes of joint pain or swelling prior to September, but he did not notice significa nt improvement with colchicine. For pain control, he was on hydrocodone. Currently, he says that th e left knee pain is a little bit better today and he is able to bend it with no excessive warmth arou nd it, but the pain has now extended into the left leg region. It appears that blood clot was felt un likely. He does complain of mild left ankle discomfort, but no hip discomfort. His symptoms are wor se as the day goes on, lasting several hours with no relief with rest. I obtained his history both f rom the chart, but also the patient as well as his , who I also spoke today personally by telepho ne. PAST MEDICAL HISTORY: He has been seen by Orthopedics initially on 11/13/17. It was felt at that ti me that he had an underlying effusion of the knee in the setting of osteoarthritis, which was advance d in the medial compartment. He did have some swelling at that time too. Otherwise, his past medica l history is notable for hypercholesterolemia and peptic ulcer disease. PAST ORTHOPEDIC HISTORY: In terms of prior orthopedic history, he has been on ibuprofen as needed. He did see Orthopedics as an outpatient as noted above. He had an MRI of his knee on 11/20/17, which showed a horizontal tear in the posterior horn of the medial meniscus extending to the body with los s of cartilage in the medial femoral condyle with subchondral sclerosis and bone marrow edema. There was some consideration for possible osteonecrosis, but he also had degenerative changes both of the patellofemoral joint and some moderate size effusion. The bacterial growth from his culture was nega tive. He has tried anti-inflammatory medicines without pain relief. He has been using a brace as we ll as a cane as needed for pain control. He is tentatively scheduled for 02/03/18, left knee total a rthroplasty, but he was seen in the hospital by Dr. Ramirez to rule out the infection as noted above. PAST SURGICAL HISTORY: Includes appendectomy and a tonsillectomy. CURRENT MEDICATIONS: Include: 1. Colchicine. 2. Ceftriaxone. FAMILY HISTORY: Includes no malignancy. Negative for significant arthritis, hypertension, diabetes, or stroke. There is no significant history of gout in the family. SOCIAL HISTORY: He lives with his , who is a chiropractor and teacher of biochemistry. He exerc ises regularly. He is a current smoker up to 4 cigarettes per day. He has had rum every other day, but both his smoking and his rum intake are on hold because of his present attack of arthropathy. REVIEW OF SYSTEMS: General: Denies fever, chills. HEENT: Denies trauma to the eyes or ears. Skin : Denies psoriatic rash. Denies any rash. Cardiac: Denies chest wall pain. Pulmonary: Denies sh ortness of breath. GI: Denies abdominal pain or nausea, vomiting. : No blood in the urine or st ool. Musculoskeletal: As noted above. PHYSICAL EXAM: In terms of his exam, he was pleasant, sitting up, in no acute distress, conversive. He had a temperature of 98.1, pulse rate of 61, respiratory rate of 18, blood pressure 136/68, O2 sa ts 97% to 98%. Eyes: He had no scleral icterus. Pupils equal, round, and reactive to light and acc ommodate. Extraocular movements were intact. Oropharynx: Slightly poor dentition with titanium. N marcus: Normal appearance and movement. Vascular: No JVP elevation. Respiratory: Symmetric chest expa nsion and respiratory effort. Otherwise clear. Cardiovascular exam revealed regular rate and rhythm . Normal S1 and S2. No S3 or S4. Abdominal Exam: Normoactive bowel sounds. No distention. No or ganic tenderness. Lymphatics: No definite adenopathy. Extremities: No cyanosis or clubbing. He di d have mild edema around the left gastrocnemius region with the left calf being warm to touch, but no cyanosis or clubbing. Skin: No rash or ulcers. Neurologic: Alert and oriented x3 with no focal we akness. On musculoskeletal exam, he had mild warmth, mild synovitis of the left knee, mild fullness extending into the left upper calf region, but negative Homans sign. Minimal swelling around the lef t ankle, but it had full range of motion with no tenderness or warmth. Hip range of motion was kandice l and the other joints were normal. There were no tophi. DIAGNOSTIC STUDIES/LAB DATA: He did have a knee x-ray that showed a large suprapatellar joint effusi on increased from prior exam with moderate osteoarthritis. He also had a venous Doppler study on 01/31/18, which showed a complex fluid collection of the left l ower extremity measuring up to 148 cm in size, but no deep venous thrombosis. He had labs showing a white count of 13.4 initially with a sed rate of 51, hemoglobin of 4.1, and glu cose of 106 with a creatinine of 0.73, sodium of 138. Liver tests were normal. Total protein was sli ghtly low at 5.9. Urinalysis revealing 1+ protein. Synovial fluid revealing calcium pyrophosphate c rystals. ASSESSMENT: Mr. Johnathon Gomes is a 62-year-old male with: 1. Pseudogout. 2. Osteoarthritis. 3. Possible early osteonecrosis of the knee per an MRI. 4. Anemia. 5. Elevated sedimentation rate. 6. Smoking history. PLAN/RECOMMENDATIONS: At this point in time to relieve the focal accumulation of fluid as well as pe rsistent inflammation which is now extending into the calf region, I recommended a very short course of prednisone at 40 mg daily. This can be extended to about 5 days and I need to follow up with him very soon as an outpatient. This could be converted to an NSAID as tolerated and we should only use it for a short period of time especially given his possible early osteonecrosis. In terms of metabol ic causes of chondrocalcinosis, we should initiate evaluations for this as both hyper and hypoparathy roidism have been associated with this condition as well as hypothyroidism. It is best to initiate t his metabolic workup as an outpatient. It is certainly possible that this is an underlying idiopathi c condition of unclear etiology or related to his underlying osteoarthritis, so there may not necessa rily be an metabolic etiology. I would, however, like to very much follow up with him within a few d ays. Hopefully, he is improved, then he will be able to have his knee arthroplasty scheduled, but he will also need to follow up with Dr. Ramirez as well. Discussed at length the potential benefits of t he prednisone as well as the need to follow up with both myself and his hospitalist as well with his and the patient. We will continue to follow. [id number]/[facility] #: [id number]
[2018-02-01 23:04] LABS: Lyme Disease Source SYNOVIAL
[2018-02-02] MEDS ORDERED: predniSONE TAB* 20 MG PO SCH (09:00)
--- NOTE | 2018-02-02 16:06 | DS ---
AMENDED REPORT NOW INCLUDES COSIGNER DESIGNATION - ESIGNED BEFORE ADJUSTMENTS CC: Dr. Duncan Waite; Dr. Shah; Dr. Ramirez * DISCHARGE SUMMARY: DATE OF ADMISSION: 01/31/18 DATE OF [id number]: 02/01/18 PROVIDER: Priyanka Troncoso NP ATTENDING PHYSICIAN: Dr. Gracia * (this is dictated by Priyanka Troncoso NP). PRIMARY CARE PROVIDER: Dr. Duncan Waite. CONSULTING PHYSICIANS: Dr. Shah and Dr. Ramirez. PRIMARY DIAGNOSIS: Pseudogout. SECONDARY DIAGNOSES: 1. Osteoarthritis. 2. Peptic ulcer disease. 3. Gastroesophageal reflux disease. DISCHARGE MEDICATIONS: 1. Omeprazole 40 mg p.o. daily. 2. Hydrocodone/acetaminophen 5/325 mg 1 tab p.o. q.4 hours p.r.n. 3. Colchicine 0.6 mg p.o. b.i.d. New medications: 1. Prednisone 40 mg p.o. daily for 5 days. HOSPITAL COURSE: Mr. Gomes is a 62-year-old male with a history of tobacco abuse, meniscal injury, GERD, peptic ulcer disease and chronic left lower extremity edema since September who presented to the ED with left lower extremity edema from the ankle to the knee along with warmth and erythema on the left calf that has been worsening since Sunday. The patient was afebrile with the rest of his vital signs were stable. Labs were notable for a white blood cell count of 13.4. The patient reported pain at 10/10 while weightbearing, this aroused concern for a septic knee joint versus cellulitis versus DVT, for which he was started on vanco and ceftriaxone, and admitted to the hospitalist service for further workup. Of note, the patient had a recent vascular workup, which was negative. Doppler ultrasound was negative for DVT; however, it did demonstrate a complex fluid collection measuring up to 14.8 cm likely representing a Calderon's cyst given his history of osteoarthritis. A 17 mL sample of joint fluid was aspirated and Ortho was consulted, but as the joint aspirate did not show signs of infection, (white blood cell count 9013, 87% fluid neutrophils, and gram-stain negative). Septic knee was deemed unlikely and Dr. Ramirez felt there was no need for a formal I and D at this time. The patient was initially treated with Rocephin and vanco for septic knee versus cellulitis; however, coverage was narrowed to just Rocephin given MRSA and Staph aureus were negative and then discontinued entirely after Dr. Ramirez ruled out septic knee, and Dr. Garduno saw the patient and felt there were no other infectious processes involved. CPPD crystals were identified in the synovial fluid revealing pseudogout as a contributing cause to the patient's symptoms. Dr. Shah with Rheumatology was consulted and recommended prednisone 40 mg daily for 5 days to decrease the significant inflammation. The patient will follow up with Dr. Shah as an outpatient and additional metabolic workup will be done at that time to identify any underlying causes for his pseudogout. The patient will also follow up with Dr. Ramirez for his osteoarthritis and to discuss possible knee surgery to repair the meniscal injury. DISPOSITION: The patient's condition is stable for discharge to home. DIET: Regular. ACTIVITY: As tolerated. FOLLOWUP: The patient is instructed to follow up with his primary care provider in 4 to 7 days as well as Dr. Ramirez. The patient is also instructed to follow up with Dr. Shah, an appointment has been made in his office for at 4 p.m. which was the soonest available appointment; however, as Dr. Shah would prefer to see him sooner ideally within a week. The patient was advised to call the office and see if any cancellations occurred in the next week. TIME SPENT: Time spent for this discharge was 35 minutes. PRIYANKA TRONCOSO, BROOKS [id number]/[facility] #: [id number] [facility] PSYCHIATRIC CENTERMadie
== END 2018-02-01 16:25 | disposition home or self-care (01) ==
LOC: ED 17:45 → MED 01-31 01:43 → INTOOBSV 01-31 01:43
PROVIDERS: ADMIT Internal Medicine; ATTEND Internal Medicine
DX: M11.20 Other chondrocalcinosis, unspecified site (principal); M17.12 Unilateral primary osteoarthritis, left knee; K27.9 Peptic ulcer, site unspecified, unspecified as acute or chronic, without hemorrhage or perforation; K21.9 Gastro-esophageal reflux disease without esophagitis; L03.116 Cellulitis of left lower limb; M00.9 Pyogenic arthritis, unspecified; R65.10 Systemic inflammatory response syndrome (SIRS) of non-infectious origin without acute organ dysfunction; R60.0 Localized edema; R50.9 Fever, unspecified; F17.210 Nicotine dependence, cigarettes, uncomplicated
CPT/HCPCS: 20600; 36415; 80053; 81003; 81015; 83605; 84484; 84550; 85025; 85610; 85652; 85730; 86140; 87040; 87086; 87205; 87476; 87640; 87641; 87798; 89051; 89060; 96365; 96366; 96375; 96376; 99284; 99406; A9270-GY; G0378; J0696; J1644; J2270; J2405; J3010; J3370

== ENCOUNTER 2018-04-25 05:31 | Observation (INO) | payer BC ==
--- NOTE | 2018-04-10 17:04 | HP ---
HISTORY AND PHYSICAL: DATE OF ADMISSION/SURGERY: 04/25/18 DATE OF OFFICE VISIT: 04/10/18 SURGEON: Rebecca Ramirez MD.* (DICTATED BY MADELEINE RIGGS) PROCEDURE: Left total knee arthroplasty. CHIEF COMPLAINT: Left knee pain. HISTORY OF PRESENT ILLNESS: Mr. Gomes is a 63-year-old gentleman with complaints of left knee pain. He has failed conservative treatment and elected to proceed with a left total knee arthroplasty. PAST MEDICAL HISTORY: Denies. PAST SURGICAL HISTORY: Appendectomy, tonsillectomy, and oral surgery. CURRENT MEDICATIONS: 1. Wellbutrin. 2. Nicotine patch. 3. Oxycodone as needed. ALLERGIES: No known drug allergies. FAMILY HISTORY: Prostate and breast cancer and thyroid disease, coronary artery disease, and TIAs. SOCIAL HISTORY: He is a 63-year-old gentleman, lives with his spouse. He smoked from the age of 15, but quit 3 weeks ago, is now using a nicotine patch. He denies use of drugs or alcohol. REVIEW OF SYSTEMS: A complete 14-point review of systems was reviewed with the patient, was all negative or noncontributory. He denies a history of DVT, PE, hepatitis, HIV or anesthesia problems. PHYSICAL EXAMINATION GENERAL: He is well developed, well nourished, in no acute distress. VITAL SIGNS: He stands 5 feet 9 inches tall, weighs 213 pounds with blood pressure 146/90, his heart rate 68. HEENT: Normocephalic, atraumatic. NECK: Supple. No palpable lymph nodes. PULMONARY: The lungs are clear to auscultation bilaterally. CARDIO: Regular rate and rhythm. Strong S1, S2. ABDOMEN: Soft, nontender, nondistended. NEUROLOGICAL: He is alert and oriented x3. MUSCULOSKELETAL: Left lower extremity: The skin is intact. There are no open wounds or abrasions. There is some moderate joint effusion. There is some tenderness over the medial and lateral joint line. Range of motion is 10 to 110 degrees of flexion. He has a 2+ dorsalis pedis pulse, intact sensation. His lower extremity muscle group strengths are intact at 5/5. ASSESSMENT AND PLAN: Mr. Gomes is a 63-year-old gentleman with end-stage osteoarthritis of the left knee. He has failed conservative treatment and elected to proceed with a left total knee arthroplasty. His surgery is scheduled for 04/25/[address] Ramirez discussed the risks and benefits of the surgery at today's visit and all of his questions were answered. He will follow up with Dr. Ramirez 2 weeks after the surgery. MADELEINE RIGGS [id number]/[facility] #: [id number] JOZEF
[2018-04-25] MEDS ORDERED: Gabapentin CAP(*) 300 MG PO ONE (06:00)
[2018-04-25] MEDS ORDERED: Lactated Ringers 1000 ML Bag* 1,000 ML IV SCH (06:00)
[2018-04-25] MEDS ORDERED: Dexamethasone IV* 4 MG/ML 1 ML (4 MG) IV SLOW PU ONE (06:00)
[2018-04-25] MEDS ORDERED: Famotidine IV* 10 MG/ML 2 ML (20 mg) IV ONE (06:00)
[2018-04-25] MEDS ORDERED: celeCOXIB CAP* 200 MG PO ONE (06:00)
[2018-04-25] MEDS ORDERED: Acetaminophen IV 1GM/100ML * 1,000 MG/100 ML VIAL IVPB ONE (06:00)
[2018-04-25] MEDS ORDERED: Famotidine IV* 10 MG/ML 2 ML (20 mg) ONE (06:20)
[2018-04-25] MEDS ORDERED: Dexamethasone IV* 4 MG/ML 1 ML (4 MG) ONE (06:20)
[2018-04-25] MEDS ORDERED: celeCOXIB CAP* 100 MG ONE (06:21)
[2018-04-25] MEDS ORDERED: ceFAZolin 2 GM PREMIX in ORs 2 GM/50 ML BAG IVPB ONE (06:21)
[2018-04-25] MEDS ORDERED: Gabapentin CAP(*) 300 MG ONE (06:21)
[2018-04-25] MEDS ORDERED: Acetaminophen IV 1GM/100ML * 100 ML ONE (06:25)
[2018-04-25] MEDS ORDERED: Tranexamic Acid 1,000 MG in NS 0.9% 50 ML IV ONE (07:00)
[2018-04-25] MEDS: Buffered Lidocaine 0.9% SYRIN* 5 ML/SYR SYRINGE INTRADERM ONE ×2 (07:04→13:57)
[2018-04-25] MEDS ORDERED: Phenylephrine INJ* 10 MG/ML 1 ML VIAL (10 MG) ONE (07:15)
[2018-04-25] MEDS ORDERED: Propofol* 10 MG/ML 20 ML BTL ONE (07:17)
[2018-04-25] MEDS ORDERED: Ondansetron INJ* 2 MG/ML VIAL ONE (07:17)
[2018-04-25] MEDS ORDERED: Bupivacaine 0.5% SDV PF* 30ML VIAL ONE (07:17)
[2018-04-25] MEDS ORDERED: fentaNYL* 50 MCG/ML 2 ML VIAL (100 MCG VIAL) ONE (07:19)
[2018-04-25] MEDS ORDERED: Midazolam* 1 MG/ML 5 ML VIAL (5 MG) ONE ×2 (07:19→07:58)
[2018-04-25] MEDS ORDERED: ROPIVACAINE 5 MG/ML 30 ML BTL (0.5%) ONE (07:27)
[2018-04-25] MEDS ORDERED: Bupivacaine 0.5%* 50 ML VIAL ONE (07:27)
[2018-04-25] MEDS ORDERED: DiMENhydriNATE IV* 50 MG/ML VIAL IV PUSH PRN (08:40)
[2018-04-25] MEDS ORDERED: Ondansetron INJ* 2 MG/ML VIAL IV PRN ×2 (08:40→10:10)
[2018-04-25] MEDS ORDERED: fentaNYL* 50 MCG/ML 2 ML VIAL (100 MCG VIAL) IV PRN (08:40)
[2018-04-25] MEDS ORDERED: HYDROmorphone INJ1* 1 MG/ML SYRINGE IV PRN (08:40)
[2018-04-25] MEDS ORDERED: Naloxone* 0.4 MG/ML 1 ML VIAL IV PRN (08:40)
[2018-04-25] MEDS ORDERED: oxyCODONE/Acetamin 5/325 MG* TAB PO PRN (10:10)
[2018-04-25] MEDS ORDERED: Magnesium Hydroxide LIQ* 30 ML UDC PO PRN (10:10)
[2018-04-25] MEDS ORDERED: traMADol TAB* 50 MG PO PRN (10:10)
[2018-04-25] MEDS ORDERED: Bisacodyl SUPP* 10 MG SUPP PR PRN (10:10)
[2018-04-25] MEDS ORDERED: diPHENhydraMINE IV* 50 MG/ML 1 ml VIAL (BENADRYL) IV PRN (10:10)
[2018-04-25] MEDS ORDERED: Polyethylene Glycol 3350* 17 GM PACKET PO PRN (10:10)
[2018-04-25] MEDS ORDERED: Acetaminophen TAB* 325 MG PO SCH (11:00)
[2018-04-25] MEDS ORDERED: oxyCODONE/Acetamin 5/325 MG* TAB ONE (14:03)
[2018-04-25] MEDS: oxyCODONE/Acetamin 5/325 MG* TAB PO PRN ×2 (14:06→21:06)
[2018-04-25] MEDS: Lactated Ringers 1000 ML Bag* 1,000 ML IV SCH ×2 (14:07→23:43)
--- NOTE | 2018-04-25 14:54 | PN ---
Progress Note - Progress Note Date of Service: 04/25/18 Note: resting in bed. moderate complaints of left knee pain. denies SOB/chest pain. 2 + DP pulse, intact sensation, able to dorsi flex/plantar flex
[2018-04-25] MEDS: Morphine VIAL* 4 MG/ML VIAL (1 ml vial) IV PRN ×2 (15:25→19:07)
[2018-04-25] MEDS: Clindamycin 600 MG IVPREMIX(* 600 MG/50 ML SDV IV SCH ×2 (16:03→23:39)
[2018-04-25] MEDS: Cyclobenzaprine TAB* 10 MG PO PRN ×2 (16:06→23:33)
[2018-04-25] MEDS: oxyCODONE TAB* 5 MG TAB PO PRN ×2 (16:52→23:35)
[2018-04-25] MEDS ORDERED: Warfarin TAB(*) 6 MG PO ONE (17:00)
[2018-04-25] MEDS: Magnesium Hydroxide LIQ* 30 ML UDC PO SCH (21:05)
[2018-04-25] MEDS: Docusate CAP* 100 MG PO SCH (21:05)
[2018-04-25] MEDS: Acetaminophen TAB* 325 MG PO SCH (22:28)
[2018-04-26] MEDS: Morphine VIAL* 4 MG/ML VIAL (1 ml vial) IV PRN ×5 (03:31→18:14)
[2018-04-26] MEDS: oxyCODONE/Acetamin 5/325 MG* TAB PO PRN ×4 (05:54→22:32)
[2018-04-26] MEDS: Acetaminophen TAB* 325 MG PO SCH ×3 (06:11→23:18)
[2018-04-26 06:13] LABS: Hematocrit 35 % (42-52); Hemoglobin 11.7 g/dl (14.0-18.0); Mean Platelet Volume 7.1 fL (7.4-10.4); Platelet Count 203 10^3/ul (150-450)
[2018-04-26 06:30] LABS: BUN/Creatinine Ratio 12.5 (8-20); Calcium 9.1 mg/dL (8.6-10.3); EGFR African American 95.7 (>60); EGFR Non-African American 79.1 (>60); Potassium 4.1 mmol/L (3.5-5.0)
[2018-04-26] MEDS: Clindamycin 600 MG IVPREMIX(* 600 MG/50 ML SDV IV SCH (07:42)
[2018-04-26] MEDS: Cyclobenzaprine TAB* 10 MG PO PRN ×3 (09:30→22:33)
[2018-04-26] MEDS: Colchicine* 0.6 MG TAB PO SCH (09:31)
[2018-04-26] MEDS: Docusate CAP* 100 MG PO SCH ×2 (09:31→22:30)
[2018-04-26] MEDS: buPROPion SR TAB.SR* 100 MG PO SCH (09:31)
[2018-04-26] MEDS: Nicotine PATCH 21 MG/24 HR* PATCH TRANSDERM SCH (09:35)
[2018-04-26] MEDS: Magnesium Hydroxide LIQ* 30 ML UDC PO SCH ×2 (09:38→22:31)
--- NOTE | 2018-04-26 09:49 | OP ---
DATE OF OPERATION: 04/25/18 - ROOM #341 DATE OF : 55. SURGEON: Rebecca Ramirez MD. HOSPITAL EDUCATION COORDINATOR: MADELEINE Gibbons. Ms. Bowens did help throughout the procedure with preparation of the leg, wound retraction, manipulation of the knee, and wound closure. ANESTHESIOLOGIST: Dr. Hurley. ANESTHESIA: Spinal. PRE-OP DIAGNOSIS: Severe endstage degenerative osteoarthritis of the left knee joint. POST-OP DIAGNOSIS: Severe endstage degenerative osteoarthritis of the left knee joint. OPERATIVE PROCEDURE: Left total knee arthroplasty. TOURNIQUET TIME: 52 minutes. COMPLICATIONS: None. SPECIMENS: Bone and cartilage from the left knee joint. HARDWARE USED: This is cemented Agu[employer] total knee arthroplasty hardware. Two packages of Simplex bone cement. For the femur, a left Oxinium posterior stabilized size 6 femoral component Legion type. For the tibia, a size 5 left Ana Paula II tibial base plate. For the insert, an 11-mm posterior stabilized articular insert size 5/6. For the patella, a 35-mm 3-peg all poly patella. BRIEF HISTORY/INDICATIONS: Mr. Gomes is a 63-year-old gentleman with years of increasingly severe left knee pain. His x-ray showed [id number] arthritis. Due to continued pain and decreased quality of life, he elected to undergo left total knee arthroplasty after failure of conservative treatment. Informed consent was obtained from the patient. He understood the risks of surgery included, but were not limited to bleeding, infection, damage to nearby structures, continued pain, need for further surgery, intraoperative fracture, nerve palsy, hardware failure or loosening, knee stiffness, loss of motion, stroke, heart attack, blood clot, and . He wished to proceed. INTRAOPERATIVE FINDINGS: Intraoperatively, the patient was noted to have severe endstage loss of cartilage in the medial and patellofemoral compartments with significant osteophyte formation. DESCRIPTION OF PROCEDURE: Mr. Gomes was identified in the preanesthesia unit. His left lower extremity was marked as the correct operative site. Informed consent was signed and placed in the chart. The patient was taken to the operating room and placed under spinal anesthesia. Tracey catheter was placed. The tourniquet was placed on the left thigh. The left lower extremity was prepped and draped in the usual sterile fashion. Preop time-out was made to correctly identify the patient side and site. Appropriate perioperative antibiotics were given within 1 hour of incision. Tourniquet was inflated until the tourniquet time for this procedure was 52 minutes. A midline incision was made with a 10 blade and carried down to the extensor mechanism. A new 10 blade was used to make a standard medial parapatellar arthrotomy. The patella was subluxed laterally. Electrocautery was used to subperiosteally elevate the soft tissues to the mid sagittal plane. The knee was flexed up. The anterior horn of the lateral meniscus and ACL were sharply released. A drill was used to enter the distal femur. Intramedullary distal femoral cutting guide was pinned on the distal femur. Oscillating saw was used to make the distal femoral cut. Next, the external rotation guide was pinned on the distal femur. The femur was sized to a size 6. Size 6 multi-cutting jig was pinned on the distal femur. Oscillating saw was used to make the appropriate 4 chamfer cuts. The PCL was completely released. The tibia was subluxed anteriorly. Extramedullary tibial cutting guide was pinned on the proximal tibia. Oscillating saw was used to make the proximal tibial cut perpendicular to the mechanical axis of the tibia. The bone was carefully removed. The knee was brought out into full extension. Spacer block had good fit with the knee in full extension. There was good medial and lateral ligamentous balancing. Flexion and extension gaps were well balanced. A lamina gear coding machine operator was placed both medially and laterally. Any remaining meniscus was carefully removed using electrocautery. Curved osteotome was used to remove any posterior osteophytes. Tibial tray and drop darrian were placed and confirmed a satisfactory tibial cut. A size 6 left femoral trial was impacted on to the distal femur and had excellent fit. The box for the posterior stabilized implant was prepared using a reamer and box cut osteotome. Size 5 tibial tray trial with an 11-mm insert trial was placed and the knee was taken through a range of motion. The knee had full extension to a 130 degrees of flexion. There is satisfactory patellofemoral tracking. The patella was everted and 9 mm of patellar bone and cartilage was carefully removed using an oscillating saw. The patella was sized to a size 35. Three peg holes were drilled to the size 35 guide. A 35 trial patella was placed and the knee was taken through a range of motion. There was satisfactory patellofemoral tracking. All trials were carefully removed. The tibia was subluxed anteriorly. Tibia was sized to a size 5. Proximal tibia was prepared using a size 5 keel punch. All bony cut surfaces were copiously irrigated with sterile saline and dried. Final implants were cemented into place starting with the tibia, followed by the femur, and last the patella. An 11-mm insert trial was placed and the knee was brought out into full extension. Tourniquet was turned down. The knee was copiously irrigated with sterile saline. Electrocautery was used to obtain meticulous hemostasis. Once the cement had fully cured, the insert trial was removed. Any excess cement was removed from around the capsule and hardware. Final insert chosen was an 11-mm posterior stabilized articular insert size 5/6. This was locked into position on the tibial tray. Stability of the insert was checked and rechecked and noted to be stable. The knee was once again copiously irrigated with sterile saline. The extensor mechanism was closed using interrupted #1 Vicryls. The rest of the incision was closed in a layered fashion using 0 and 2 -0 Vicryls. Skin was closed using running 3-0 nylon suture. Sterile Xeroform, 4x4s, and Webril were used to cover the incision. Maxim wrap and cold pack were placed over this. The patient was taken to the PACU in stable condition. Intended weightbearing will be weightbearing as tolerated. Intended DVT prophylaxis will be Eliquis. [id number]/[facility] #: [id number] JOZEF
--- NOTE | 2018-04-26 10:05 | PN ---
Progress Note - Progress Note Date of Service: 04/26/18 SOAP: Subjective: []Patient seen OOB in chair. Complaining of moderate left knee pain and some numbness to the anterior aspect of his left tibia. Denies SOB, CP, palpitations or dizziness. Objective: [] Vital Signs Temp 97.8 F 04/26/18 07:25 Pulse 60 04/26/18 07:25 Resp 18 04/26/18 09:49 BP 137/65 04/26/18 07:25 Pulse Ox 96 04/26/18 07:25 Intake & Output 04/25/18 04/26/18 04/26/18 18:59 06:59 18:59 Intake Total 1770 2600 1054 Output Total 2200 3000 400 Balance -430 -400 654 Intake: IV Fluids 1600 1000 854 LR 0 1000 lr 1600 IVPB 50 Oral 120 1600 200 Output: Urine 400 Tracey 2000 3000 Estimated Blood Loss 200 Laboratory Results - last 24 hr 04/26/18 04/26/18 04/26/18 05:01 05:01 05:01 Hgb 11.7 L Hct 35 L Plt Count 203 MPV 7.1 L INR (Anticoag Therapy) 1.00 Sodium 138 Potassium 4.1 Chloride 104 Carbon Dioxide 31 Anion Gap 3 BUN 12 Creatinine 0.96 Est GFR ( Amer) 95.7 Est GFR (Non-Af Amer) 79.1 BUN/Creatinine Ratio 12.5 Glucose 135 H Calcium 9.1 Left knee dressings are dry and intact Calf NT and soft, no edema active DF left ankl2 + pedal pulse + paresthesia anterior tibia to light touch to anterior ankle region, may be from nerve block Assessment: []s/p LTK arthroplasty POD #1 Plan: []PT/OT WBAT LLE Lovenox 40 mg q24 bridge with Coumadin for DVT prophylaxis- 8 mg Coumadin today Patient not having adequate pain management to go home today-discharge home tomorrow if improved
[2018-04-26] MEDS ORDERED: Enoxaparin(*) 40 MG/0.4 ML SYR SUBCUT SCH (11:00)
[2018-04-26] MEDS: oxyCODONE TAB* 5 MG TAB PO PRN (12:26)
[2018-04-26] MEDS: Ondansetron TAB* 4 MG PO PRN (16:51)
[2018-04-26] MEDS ORDERED: Warfarin TAB(*) 4 MG PO ONE (17:00)
[2018-04-26] MEDS ORDERED: Nicotine Patch Removal NOTE PATCH OFF SCH (21:00)
[2018-04-26] MEDS ORDERED: amLODIPine TAB* 5 MG ONE (23:38)
[2018-04-26] MEDS: amLODIPine TAB* 5 MG PO SCH (23:58)
[2018-04-27] MEDS: oxyCODONE TAB* 5 MG TAB PO PRN (01:36)
[2018-04-27] MEDS: oxyCODONE/Acetamin 5/325 MG* TAB PO PRN ×2 (05:28→11:57)
[2018-04-27] MEDS: Acetaminophen TAB* 325 MG PO SCH ×2 (05:35→14:27)
[2018-04-27 05:57] LABS: Hematocrit 35 % (42-52); Mean Platelet Volume 6.9 fL (7.4-10.4); Platelet Count 202 10^3/ul (150-450)
[2018-04-27 06:10] LABS: INR 1.14 (0.77-1.02)
--- NOTE | 2018-04-27 06:45 | PN ---
Progress Note - Progress Note Date of Service: 04/27/18 SOAP: Subjective: resting comfortably, moderate complaints of knee pain, denies SOB/chest pain Objective: Vital Signs Temp Pulse Resp BP Pulse Ox 99.2 F 110 16 167/87 93 04/27/18 02:28 04/27/18 02:28 04/27/18 05:28 04/27/18 02:28 04/27/18 02:28 Laboratory Last Values Hgb 12.0 g/dl (14.0-18.0) L 04/27/18 05:41 Hct 35 % (42-52) L 04/27/18 05:41 Plt Count 202 10^3/ul (150-450) 04/27/18 05:41 MPV 6.9 fL (7.4-10.4) L 04/27/18 05:41 INR (Anticoag Therapy) 1.14 (0.77-1.02) H 04/27/18 05:41 Sodium 138 mmol/L (135-145) 04/26/18 05:01 Potassium 4.1 mmol/L (3.5-5.0) 04/26/18 05:01 Chloride 104 mmol/L (101-111) 04/26/18 05:01 Carbon Dioxide 31 mmol/L (22-32) 04/26/18 05:01 Anion Gap 3 mmol/L (2-11) 04/26/18 05:01 BUN 12 mg/dL (6-24) 04/26/18 05:01 Creatinine 0.96 mg/dL (0.67-1.17) 04/26/18 05:01 Est GFR ( Amer) 95.7 (>60) 04/26/18 05:01 Est GFR (Non-Af Amer) 79.1 (>60) 04/26/18 05:01 BUN/Creatinine Ratio 12.5 (8-20) 04/26/18 05:01 Glucose 135 mg/dL (70-100) H 04/26/18 05:01 Calcium 9.1 mg/dL (8.6-10.3) 04/26/18 05:01 incision: c/d; dressing changed PE: NVI Assessment: s/p left TKA; POD#2 Plan: 1) PT/OT- WBAT 2) elevated HR this am, EKG done, awaiting hospitalist read 3) Lovenox/Coumadin for DVT prophylaxis 4) Possibly home today, if cleared by hospitalist; otherwise home tomorrow
[2018-04-27] MEDS: Ondansetron TAB* 4 MG PO PRN (07:59)
[2018-04-27] MEDS: Nicotine PATCH 21 MG/24 HR* PATCH TRANSDERM SCH (08:37)
[2018-04-27] MEDS: Docusate CAP* 100 MG PO SCH (08:38)
[2018-04-27] MEDS: Magnesium Hydroxide LIQ* 30 ML UDC PO SCH (08:38)
[2018-04-27] MEDS: Colchicine* 0.6 MG TAB PO SCH (08:38)
[2018-04-27] MEDS: amLODIPine TAB* 5 MG PO SCH (08:38)
[2018-04-27] MEDS: buPROPion SR TAB.SR* 100 MG PO SCH (08:39)
[2018-04-27] MEDS ORDERED: Metoprolol Tartrate TAB* 25 MG PO SCH (09:00)
[2018-04-27] MEDS ORDERED: Apixaban* 2.5 MG TAB PO SCH (09:00)
--- NOTE | 2018-04-27 11:39 | CONSULT ---
Subjective Date of Service: 04/27/18 Interval History: Mr. Gomes is a 63 yo M with PMH sig for tob use and hx of L knee OA who is now s/p L TKR POD#2 who was consulted to the medicine service for tachycardia and hypertension starting 04/26/18 overnight despite adequate pain control. On review of vitals pt has been persistently mildly hypertensive starting POD #1 04/26/18 with associated sinus tachycardia. Amlodipine 5mg and Metoprolol 12.5mg BID was started on 05/06/18 with mild response. Johnathon is seen in his room and is ambulating with walker, her reports ongoing moderate L knee pain and numbness but otherwise feels well. Yesterday he describes episode of dizziness while working with PT with no other associated sx , he has some nausea with eating which he attributes with his pain medicine and he has not had a BM. STEPHANIE denies CP, SOB, vomiting, diarrhea, stomach pain, dysuria, headache or vision changes. On review of vitals he has a 24 hr TMax of 99, sinus tachycardia to 110, and BP Max 180/93, satting normally on room air all of which have since improved on AM vitals. Review of Systems - Measurements Intake and Output: Intake and Output Last 24 Hours 04/24/18 04/25/18 04/26/18 04/27/18 11:59 11:59 11:59 11:59 Intake Total 1600 3824 2330 Output Total 300 5300 1675 Balance 1300 -1476 655 Weight 94.166 kg Intake: IV Fluids 1600 1854 LR 1000 lr 1600 IVPB 50 Oral 1920 2330 Output: Urine 400 1675 Tracey 300 4700 Estimated Blood Loss 200 Other: Estimated Void Medium # Bowel Movements 0 # Voids 2 - Review of Systems Constitutional Symptoms: Negative: Weight Gain, Weight Loss, Weakness, Fatigue, Fever, Night Sweats, Unexplained Falls, Other HEENT: Negative: Normal, Change in Hearing, Vertigo, Dental Problems, Tinnitus, Sinus Problem, Other Pulmonary: Negative: Normal, Cough, Sputum, Hemoptysis, Wheezing, Respiratory Distress, Shortness of Breath, COPD, Asthma, Exercise Intolerance, Home Oxygen, Other Cardiology: Negative: Normal, Chest Pain, Shortness of Breath, Palpitations, Swelling of Ankles, Peripheral Vascular Dis, Edema, Faintness, Syncope, Claudication, Proximal NocturnalDyspnea, Orthopnoea, Other Gastroenterology: Positive: Nausea, Constipation Genital - Urinary: Negative: Normal, Dysuria, Hematuria, Polyuria, Nocturia, Other Musculoskeletal: Positive: Joint Pain Endocrinology: Negative: Normal, Thyroid Problems, Adrenal Problems, Gonadal Problems, Family Hx Endocrine Disorders, Obesity, Diabetes Mellitus, Hyperglycemia, Hx Hypoglycemia, Diabetic Foot Ulcers, Calluses, Hirsutism, Menstral Abnormalities , Polydipsia, Polyuria, Gonadal Problems, Gynecomastia, Pituitary disease, Other Objective Active Medications: Acetaminophen (Tylenol Tab*) 975 mg PO 0600,1400,2200 [facility] Last Admin: 04/27/18 05:35 Dose: Not Given Amlodipine Besylate (Norvasc Tab*) 5 mg PO DAILY [facility] Last Admin: 04/27/18 08:38 Dose: 5 mg Apixaban (Eliquis*) 2.5 mg PO BID [facility] Last Admin: 04/27/18 08:38 Dose: 2.5 mg Bisacodyl (Dulcolax Supp*) 10 mg ND DAILY PRN PRN Reason: constipation Bupropion HCl (Wellbutrin Sr Tab*) 100 mg PO QAM [facility] Last Admin: 04/27/18 08:39 Dose: 100 mg Colchicine (Colcrys*) 0.6 mg PO QAM [facility] Last Admin: 04/27/18 08:38 Dose: 0.6 mg Cyclobenzaprine HCl (Flexeril Tab*) 10 mg PO TID PRN PRN Reason: SPASMS Last Admin: 04/26/18 22:31 Dose: 10 mg Diphenhydramine HCl (Benadryl Iv*) 12.5 mg IV Q6H PRN PRN Reason: PRURITIS Docusate Sodium (Colace Cap*) 100 mg PO BID [facility] Last Admin: 04/27/18 08:38 Dose: 100 mg Lactated Ringer's (Lactated Ringers 1000 Ml Bag*) 1,000 mls @ 100 mls/hr IV PER RATE [facility] Last Admin: 04/25/18 23:43 Dose: 100 mls/hr Lactulose (Lactulose*) 30 ml PO Q6H PRN PRN Reason: constipation Magnesium Hydroxide (Milk Of Magnesia Liq*) 30 ml PO BID [facility] Last Admin: 04/27/18 08:38 Dose: 30 ml Magnesium Hydroxide (Milk Of Magnesia Liq*) 30 ml PO Q6H PRN PRN Reason: constipation Metoprolol Tartrate (Lopressor Tab*) 12.5 mg PO Q12HR [facility] Last Admin: 04/27/18 08:38 Dose: 12.5 mg Morphine Sulfate (Morphine Vial*) 2 mg IV Q2H PRN PRN Reason: PAIN Last Admin: 04/26/18 18:14 Dose: 2 mg Nicotine (Nicotine Patch 21 Mg/24 Hr*) 1 patch TRANSDERM QAM [facility] Last Admin: 04/27/18 08:37 Dose: 1 patch Ondansetron HCl (Zofran Inj*) 4 mg IV Q6H PRN PRN Reason: nausea Last Admin: 04/26/18 22:36 Dose: 4 mg Ondansetron HCl (Zofran Tab*) 4 mg PO Q6H PRN PRN Reason: NAUSEA Last Admin: 04/27/18 07:59 Dose: 4 mg Oxycodone HCl (Roxycodone Tab*) 10 mg PO Q4H PRN PRN Reason: SEVERE PAIN Last Admin: 04/27/18 01:36 Dose: 10 mg Oxycodone/Acetaminophen (Percocet 5/325 Tab*) 1 tab PO Q4H PRN PRN Reason: PAIN Oxycodone/Acetaminophen (Percocet 5/325 Tab*) 2 tab PO Q4H PRN PRN Reason: PAIN Last Admin: 04/27/18 05:28 Dose: 2 tab Pharmacy Profile Note (Nicotine Patch Removal Note*) 1 note PATCH OFF 2100 [facility] Last Admin: 04/26/18 22:34 Dose: 1 note Polyethylene Glycol/Electrolytes (Miralax*) 17 gm PO DAILY PRN PRN Reason: Constipation Tramadol HCl (Ultram*) 50 mg PO Q6H PRN PRN Reason: PAIN Last Admin: 04/27/18 07:59 Dose: 50 mg Vital Signs - 8 hr 04/27/18 04/27/18 04/27/18 05:28 07:33 07:42 Temperature 98.7 F Pulse Rate 108 Respiratory 16 16 18 Rate Blood Pressure 140/84 (mmHg) O2 Sat by Pulse 92 Oximetry 04/27/18 04/27/18 07:59 08:00 Temperature Pulse Rate Respiratory 18 20 Rate Blood Pressure (mmHg) O2 Sat by Pulse 92 Oximetry Oxygen Devices in Use Now: None Eyes: PERRLA Ears/Nose/Mouth/Throat: NL Teeth, Lips, Gums, Clear Oropharnyx, Mucous Membranes Moist Neck: No Thyroid Enlargement, Masses Respiratory: Symmetrical Chest Expansion and Respiratory Effort, Clear to Auscultation, Clear to Percussion, Clear to Palpation Cardiovascular: NL Sounds; No Murmurs; No JVD, RRR, No Edema, - Abdominal: NL Sounds; No Tenderness; No Distention, No Hepatosplenomegaly Lymphatic: No Cervical Adenopathy Extremities: No Edema - s/p L TKR wrapped with danita bandage Skin: No Rash or Ulcers Neurological: Alert and Oriented x 3 Result Diagrams: 04/27/18 05:41 04/26/18 05:01 Assessment/Plan - Billing Plan By Medical Problem: 1. Hypertension: Most likely 2/2 to post operative stress and pain, of note he has been trying to minimize opiate pain medications 2/2 to the side effect of nausea. He can be d/c on Amlodipine 5mg with follow up with PCP to be determined when to discontinue as an outpatient as mobility and pain improve. 2. Sinus tachycardia: EKG reviewed, sinus tachycardia with isolated TWI in III with no comparison, though wholly asymptomatic. As per above most likely 2/2 to post operative stress and pain, he has no localizing infectious symptoms or concerning cardiac findings. At this time would not continue Metoprolol 12.5mg BID but as per d/c continue to encourage PO fluids, pain control and with adequate bowel regimen. Code Status: Full Please do not hesitate to contact us if any questions, thank you for allowing us to particpate in caring for your patient.
[2018-04-27 11:57] VITALS: BP 136/79
--- NOTE | 2018-04-28 10:59 | DS ---
DISCHARGE SUMMARY: DATE OF ADMISSION: 04/25/18 DATE OF DISCHARGE: 04/27/18 SURGEON: Rebecca Ramirez MD.* (DICTATED BY MADELEINE RIGGS) PRINCIPAL DIAGNOSIS: End-stage osteoarthritis of the left knee. DISCHARGE DIAGNOSIS: End-stage osteoarthritis of the left knee. HISTORY OF PRESENT ILLNESS: Mr. Gomes is a 63-year-old gentleman with end- stage osteoarthritis of the left knee. He has failed conservative treatment and elected to proceed with the left total knee arthroplasty. HOSPITAL COURSE: He was admitted electively to the hospital on 04/25/18 and underwent a left total knee arthroplasty. Postoperatively, he was placed on Coumadin, Lovenox for DVT prophylaxis. Postoperative day 1, his H and H was 11 and 35. On postoperative day 2, 12 and 35. His INR after 2 days of Coumadin went to 1.14. He was then switched to Eliquis b.i.d. He remained afebrile and his hospital course was unremarkable. He was discharged home in stable condition. DISCHARGE MEDICATIONS: 1. Percocet 5/325 1 to 2 tabs every 4 to 6 hours for pain. 2. Flexeril 10 mg 2 to 3 times daily for spasms. 3. Colace 100 mg twice daily for constipation. 4. Eliquis 2.5 mg twice a day for 4 weeks. 5. Amlodipine 5 mg daily. 6. Wellbutrin 100 mg daily. 7. Colcrys 0.6 mg daily. 8. Metoprolol 12.5 mg daily. PHYSICAL EXAM UPON DISCHARGE: The incisions were clean and dry. There are no signs of infection. He was ambulating well with the aid of a walker. He was distally neurovascularly intact. DISCHARGE DISPOSITION: He was discharged home in stable condition. DISCHARGE INSTRUCTIONS: He was discharged home. He was given prescription for Percocet for pain, Flexeril for muscle spasm, Colace for constipation, and Eliquis twice a day for 4 weeks for DVT prophylaxis. The hospitalist recommended a low- dose amlodipine for a month. He was given a prescription for 5 mg to take daily and he will need to see his primary care physician within the month to determine whether or not this medication needs to be continued. Starting Sunday, he can shower, letting soap and water run over the incision, do not submerge the leg in water. He is weightbearing as tolerated and he will see Dr. Ramirez back in 2 weeks. MADELEINE RIGGS [id number]/[facility] #: [id number] JOZEF
== END 2018-04-27 11:55 | disposition home or self-care (01) ==
LOC: OR 05:31 → INTOOBSV 10:10 → SSU 10:10
PROVIDERS: ADMIT Orthopaedic Surgery Adult Reconstructive Orthopaedic Surgery; ATTEND Orthopaedic Surgery Adult Reconstructive Orthopaedic Surgery
DX: M17.12 Unilateral primary osteoarthritis, left knee (principal); I10 Essential (primary) hypertension; R00.0 Tachycardia, unspecified; Z79.01 Long term (current) use of anticoagulants
CPT/HCPCS: 36415; 80048; 85014; 85018; 85049; 85610; 88305; 88311; 90686; 93005; 96374; 96375; A9270-GY; C1776; G0378; G8978-GP-CL; G8979-GP-CI; J0690; J1100; J1650; J2250; J2270; J2405; J2704; J2795; J3010

== ENCOUNTER 2018-09-23 07:04 | Observation (INO) | payer BC ==
[~2018-09-23 07:04] MED LIST: Buffered Lidocaine 1% SYRIN* 1 ML/SYRINGE INTRADERM ONE; Famotidine IV* 10 MG/ML 2 ML (20 mg) IV ONE; Lactated Ringers 1000 ML Bag* 1,000 ML IV SCH
[2018-09-23] MEDS ORDERED: Famotidine IV* 10 MG/ML 2 ML (20 mg) ONE (08:15)
[2018-09-23] MEDS ORDERED: ceFAZolin 2 GM PREMIX in ORs 2 GM/50 ML BAG ONE (08:15)
[2018-09-23] MEDS ORDERED: Propofol* 10 MG/ML 20 ML BTL ONE ×2 (08:32→10:19)
[2018-09-23] MEDS ORDERED: Ondansetron INJ* 2 MG/ML VIAL ONE (08:32)
[2018-09-23] MEDS ORDERED: Lidocaine 2% PF * 5 ML VIAL ONE ×2 (08:32→11:23)
[2018-09-23] MEDS ORDERED: Dexamethasone IV* 4 MG/ML 1 ML (4 MG) ONE (08:32)
[2018-09-23] MEDS ORDERED: fentaNYL* 50 MCG/ML 2 ML VIAL (100 MCG VIAL) ONE ×3 (08:33→12:17)
[2018-09-23] MEDS ORDERED: Midazolam* 1 MG/ML 5 ML VIAL (5 MG) ONE (08:33)
[2018-09-23] MEDS ORDERED: Cisatracurium* 2 MG/ML MDV 5 ML ONE (08:33)
[2018-09-23] MEDS ORDERED: Artificial Tear OPHTH.OINT* 3.5 GM ONE (08:57)
[2018-09-23] MEDS ORDERED: Lidocain 1% EPI 1:100,000 * 30 ML MDV ONE (09:17)
[2018-09-23] MEDS ORDERED: Thrombin 5,000 UNITS* 1 APPLIC KIT - topical use - TOPICAL ONE (09:17)
[2018-09-23] MEDS ORDERED: Bacitracin INJECTION* 50,000 UNITS ONE (09:17)
[2018-09-23] MEDS ORDERED: Gelfoam 12-7 ADSORBABL SPONGE* 1 EA SPONGE ONE (09:23)
[2018-09-23] MEDS ORDERED: Gelfoam Sponge SIZE 100* SPONGE ONE (09:24)
[2018-09-23] MEDS ORDERED: EPHEDrine (Pressors)* 50 MG/ML VIAL ONE (09:59)
[2018-09-23] MEDS ORDERED: Phenylephrine 40 MCG/ML SYRINGE ONE (10:31)
[2018-09-23] MEDS ORDERED: Ondansetron INJ* 2 MG/ML VIAL IV PRN ×2 (10:39→11:51)
[2018-09-23] MEDS ORDERED: Naloxone* 0.4 MG/ML 1 ML VIAL IV PRN (10:39)
[2018-09-23] MEDS ORDERED: Levalbuterol 0.63MG/3ML NEB* UNIT OF USE INH PRN (10:39)
[2018-09-23] MEDS ORDERED: Magnesium Hydroxide LIQ* 30 ML UDC PO PRN (11:51)
[2018-09-23] MEDS ORDERED: Acetaminophen TAB* 325 MG PO PRN (11:51)
[2018-09-23] MEDS ORDERED: Lactated Ringers 1000 ML Bag* 1,000 ML IV SCH (12:00)
[2018-09-23] MEDS: fentaNYL* 50 MCG/ML 2 ML VIAL (100 MCG VIAL) IV PRN ×2 (12:18→12:35)
[2018-09-23] MEDS ORDERED: Levalbuterol 0.63MG/3ML NEB* UNIT OF USE INH ONE (12:29)
[2018-09-23] MEDS ORDERED: HYDROmorphone INJ1* 1 MG/ML SYRINGE ONE (12:51)
[2018-09-23] MEDS: HYDROmorphone INJ1* 1 MG/ML SYRINGE IV PRN ×2 (12:52→13:24)
[2018-09-23] MEDS: HYDROcodone/ACETAMIN 5-325 MG* 1 TAB PO PRN ×3 (15:28→23:36)
[2018-09-23] MEDS: Morphine 4 MG/ML VIAL (1 ml) 4 MG/ML VIAL IV PRN ×2 (16:50→21:07)
[2018-09-23] MEDS: Nicotine PATCH 21 MG/24 HR* PATCH TRANSDERM SCH (17:01)
[2018-09-23] MEDS ORDERED: Nicotine Patch Removal NOTE FOLLOW UP SCH (21:00)
[2018-09-23] MEDS: Cyclobenzaprine TAB* 10 MG PO PRN (23:37)
[2018-09-24] MEDS: HYDROcodone/ACETAMIN 5-325 MG* 1 TAB PO PRN ×2 (03:17→07:57)
[2018-09-24 07:34] VITALS: BP 132/68
[2018-09-24] MEDS: Cyclobenzaprine TAB* 10 MG PO PRN (07:58)
[2018-09-24] MEDS: Nicotine PATCH 21 MG/24 HR* PATCH TRANSDERM SCH (07:58)
--- NOTE | 2018-09-24 08:09 | PN ---
Progress Note - Progress Note Date of Service: 09/24/18 SOAP: Subjective: [S/p ACD F C3-4, POD #1 Feeling well this morning, reports muscle spasms last night. Right hand numbness persistent. Lower extremity symptoms improving. Ambulating independently. Denies nausea, headache Eating and drinking well.] Objective: [ Vital Signs: Temp Pulse Resp BP Pulse Ox 97.9 F 76 18 132/68 96 09/24/18 07:31 09/24/18 07:31 09/24/18 07:58 09/24/18 07:31 09/24/18 07:31 General: Alert, sitting up in bed .NAD Neuro: Right hand and right lateral foot sensation diminished Incision: Intact. No swelling, erythema. Drain dc today without complication. Wound drain output 09/23/18 09/23/18 09/24/18 18:05 23:58 03:19 Output, LEYDI #1 30 15 0 09/24/18 05:27 Output, LEYDI #1 10 ] Assessment: [S/p ACD F C3-4. Satisfactory post op.] Plan: [1. Discharge home today 2. Discharge instructions discussed]
[2018-09-24] MEDS ORDERED: buPROPion SR TAB.SR* 150 MG PO SCH (09:00)
[2018-09-24] MEDS ORDERED: Docusate CAP* 100 MG PO SCH (09:00)
[2018-09-24] MEDS ORDERED: amLODIPine TAB* 5 MG PO SCH (09:00)
--- NOTE | 2018-09-24 11:20 | OP ---
DATE OF OPERATION: 09/23/18 - ROOM #347 DATE OF : 55 PRIMARY SURGEON: Harrison Moss M.D. ELEVATOR INSPECTOR: MADELEINE Tuttle. ANESTHESIA: General. PRE-OP DIAGNOSIS: Herniated nucleus pulposus, C3-4. POST-OP DIAGNOSIS: Herniated nucleus pulposus, C3-4. OPERATIVE PROCEDURE: Anterior cervical diskectomy, C3-4, with placement of biomechanical device at C3-4 with anterior instrumentation. DESCRIPTION OF PROCEDURE: The patient was placed on the operating room table in the supine position and after satisfactory general anesthesia was obtained, the anterior aspect of the neck was clipped, prepped and draped in a sterile manner for anterior cervical exposure. An incision was outlined at the highest point in his neck, beginning at the midline, extending to the right side, distance of 3 cm. This incision was infiltrated with 1% Xylocaine with epinephrine, after which it was turned down sharply to the subcutaneous tissues. A superiorly and inferiorly based flap was then fashioned and the platysmal muscle was divided along the direction of its fibers. Utilizing a combination of sharp and blunt dissection, a dissection plane was carried down between the sternocleidomastoid and strap muscles down to the anterior aspect of the spine. An intraoperative radiograph was obtained verifying the localization of the C3-4 level, after which the attachment of the longus colli muscle was taken down. Self-retaining retractors were placed to facilitate exposure. The initial step in the procedure was removal of the anterior two- thirds of disk material utilizing a combination of the Midas Byron drill, angled curettes, and pituitary forceps. [place] distractor pins were then placed in the C3 and C4 vertebral bodies and gentle disk space distraction applied. The operating microscope was then brought into the field and the remainder of the procedure was done under microscopic visualization. Projecting back posteriorly was noted to be extruded disk material, especially prominent on the left side. The disk was removed with multiple fragments. The dissection was carried back posteriorly until normal dura was encountered. At the conclusion of the decompression and nerve hook, we grabbed readily both C4 nerve roots. The interspace was then prepared for receipt of an 8 mm PEEK graft that was filled with bony matrix. This was slightly countersunk into position. A Novopyxis plate was then selected to span from C3 to C4 and was secured into position with 13 mm self-drilling screws. A postconstruct x-ray was taken showing satisfactory screw and graft placement. A drain was then placed in the prevertebral space and tunneled out towards the right side. The subcutaneous tissues were then reapproximated with 3-0 Vicryl and the skin was closed with Steri-Strips. At this point, the patient began to awaken and coughed several times on his endotracheal tube with immediate swelling of his wound. The wound was redraped and prepped and opened for exploration of an obvious bleeding source. After reopening the wound, hematoma was irrigated out of the wound and a smaller jugular venous branch was found in the superficial aspect of the exposure that had begun bleeding when he started coughing postoperatively. This was coagulated and the hemorrhage controlled. The patient had several Valsalva maneuvers performed to try to elicit any bleeding and none was noted. A drain was then again placed into the exposure and tunneled out towards the right side. The subcutaneous tissues were reapproximated with 3-0 Vicryl and the skin was closed with Steri-Strips. The estimated blood loss was 100 cc and the final sponge, padding and needle counts were correct. The patient was taken to the recovery room, extubated, and in stable condition. [id number]/[facility] #: [id number] JOZEF
--- NOTE | 2018-09-24 22:34 | DS ---
DISCHARGE SUMMARY: DATE OF ADMISSION: 09/23/18 DATE OF DISCHARGE: 09/24/18 ATTENDING PHYSICIAN: Dr. Moss.* (DICTATED BY MADELEINE RIVERA) DISCHARGE DIAGNOSES: 1. Cervical disk disorder, C3-4. 2. Hypertension. SPECIAL PROCEDURE: Anterior cervical diskectomy and fusion, C3-4. HOSPITAL COURSE: This 63-year-old male, presented to the office with worsening neck pain, right upper and lower extremity, and numbness in addition to right facial numbness, worsening over the past 5 months. MRI showed cervical disk disease at C3-4. Considering the symptoms did not improve with conservative treatments over several months, he elected for surgical intervention. On the day of admission, he was taken to surgery where under general anesthesia, an anterior cervical diskectomy and fusion at C3-4 operation was carried out. Postoperatively, the right lower extremity numbness and the right upper extremity numbness were improving. He was ambulating independently and he was eating, drinking, and voiding without difficulty. Pain was well controlled with oral pain medication. On the first postoperative day, the wound drain was discontinued and the patient was discharged home to the care of his . The patient's condition at the time of discharge was stable. DISCHARGE MEDICATIONS: 1. [place] 5/325 mg 1 to 2 tabs by mouth every 4 hours as needed for pain. 2. Cyclobenzaprine 10 mg 1 tab by mouth up to 3 times daily as needed for muscle spasms. DISCHARGE INSTRUCTIONS: 1. Wound care and activity level were discussed with the patient and information on this was provided. 2. The patient was advised to eat soft foods and drink liquids carefully for the next several weeks. He was advised to return to the [facility] Emergency Room if he develops difficulty swallowing, difficulty breathing, neck swelling or increased neck pain. FOLLOWUP: He will be seen in the office in approximately 2 weeks. MADELEINE RIVERA [id number]/[facility] #: [id number] MTDD
== END 2018-09-24 10:08 | disposition home or self-care (01) ==
LOC: OR 07:04 → SSU 11:51
PROVIDERS: ADMIT Neurological Surgery; ATTEND Neurological Surgery
DX: M50.21 Other cervical disc displacement, high cervical region (principal); M50.31 Other cervical disc degeneration, high cervical region; I10 Essential (primary) hypertension; R20.0 Anesthesia of skin; E78.00 Pure hypercholesterolemia, unspecified; K27.9 Peptic ulcer, site unspecified, unspecified as acute or chronic, without hemorrhage or perforation; F17.210 Nicotine dependence, cigarettes, uncomplicated
CPT/HCPCS: 72020; 96374; 96375; 96376; A9270-GY; C1713; C1776; G0378; J0690; J1100; J1170; J2250; J2270; J2405; J2704; J3010

== ENCOUNTER 2019-02-16 13:28 | Emergency (ER) | payer BC ==
--- OUTSIDE RECORDS SUMMARY | 2019-02-16 13:35 | XMS REPORT | Continuity of Care Document ---
:1955 External Reference #:[id number] Author Name Arias Pritchett M.D. 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 Onset: 07/24/2018 Mucocele of salivary gland Arias Pritchett M.D. Onset: 02/04/2019 Social History Type Date Description Comments Sex Unknown Tobacco Use Start: Unknown Current Cigarette Smoker Smoker of 35 years. 1/2 Pack Daily Tobacco Use Start: Unknown Never Smoked Cigars Tobacco Use Start: Unknown Never Smoked A Pipe Smoking Status Reviewed: 02/04/19 Never Smoked A Pipe Smokeless Tobacco Never Used Smokeless Tobacco ETOH Use Currently rarely consumes alcohol Tobacco Use Start: Unknown Patient is a current smoker, smokes every day Allergies, Adverse Reactions, Alerts Description No Known Drug Allergies Medications Active Medications SIG Qnty Indications Ordering Provider Date Amlodipine Besylate take 1 tablet by Unknown 5mg mouth once daily Tablets for high blood pressure Immunizations Description No Information Available Vital Signs Date Vital Result Comment 02/04/2019 10:30am Weight 214.00 lb Weight 97.070 kg Height 69.75 inches 5'9.75" Height in cm's 177.2 cm BMI (Body Mass Index) 30.9 kg/m2 07/24/2018 2:30pm Weight 218.00 lb Weight 98.885 kg Height 69.75 inches 5'9.75" Height in cm's 177.2 cm BMI (Body Mass Index) 31.5 kg/m2 Results Description No Information Available Procedures Description No Information Available Medical Devices Description No Information Available Encounters Type Date Location Provider Dx Diagnosis Office Visit 02/04/2019 [place] Arias Ortiz K11.6 Mucocele of 11:00a 04/23/07 Jose Pritchett salivary gland Assessments Date Code Description Provider 02/04/2019 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 Plan of Treatment 02/04/2019 - Arias Pritchett M.D.K11.6 Mucocele of salivary glandComments: The patient has a mass in his left parotid that on FNA is a benign cyst. This is consistent with itfluctuating with temperature. I think that the heat stimulates the gland more, along with the sweat glands, and then it swells up. Treatment is with parotidectomy. We discussed the surgery and the postoperative course. The main risk of surgery are facial weakness with difficulty closing the eye and a crooked smile, and gustatory sweating. The face and earlobe will be numb after the surgery. Itis up to him whether too have this done or not. He has had other recent surgeries on his neck and knee recently. He has had some problems after neck surgery with numbness on the right side of his body and he has opted for now not to have it done. Functional Status Description No Information Available Mental Status Description No Information Available Referrals Description No Information Available
--- OUTSIDE RECORDS SUMMARY | 2019-02-16 13:35 | XMS REPORT | Continuity of Care Document ---
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 Onset: 11/26/2017 meniscus of knee Cellulitis of left lower limb Beck Caldwell II, M.D. Onset: 01/31/2018 Edema Beck Caldwell II, M.D. Onset: 01/31/2018 Suppurative arthritis Beck Caldwell II, M.D. Onset: 01/31/2018 Systemic inflammatory response syndrome Beck Caldwell II, M.D. Onset: 02/2018 (Sirs) of non-infectious origin without acute organ dysfunction Arthroplasty of knee Rebecca Ramirez M.D. Onset: 07/29/2018 Cervical disc disorder Harrison Moss M.D. Onset: 09/02/2018 Convalescence after surgery Harrison Moss M.D. Onset: 10/09/2018 Social History Type Date Description Comments Sex Unknown ETOH Use Denies alcohol use Tobacco Use Start: Unknown Patient is a current Uses electronic smoker, smokes every cigarettes day Smoking Status Reviewed: 01/08/19 Patient is a current Uses electronic smoker, smokes every cigarettes day Exercise Exercises regularly Type/Frequency Allergies, Adverse Reactions, Alerts Description No Known Drug Allergies Medications Active Medications SIG Qnty Indications Ordering Provider Date Amlodipine Besylate take 1 tablet by Unknown 5mg mouth once daily Tablets for high blood pressure History Medications Diclofenac Sodium apply to knee 100gm Z96.652 Harrison F 10/28/2018 - 1% three times a MD Hai Unknown Gel day as needed Hydrocodone 1 PO Q6h prn 20tabs Z48.89 Harrison Moss, 10/09/2018 - Bitartrate/Acetamino pain M.D. 11/06/2018 phen 5-325mg Tablets Immunizations Description No Information Available Vital Signs Date Vital Result Comment 01/08/2019 9:21am Height 69 inches 5'9" Weight 205.00 lb BP Systolic 132 mmHg BP Diastolic 84 mmHg Pain Level 8 BMI (Body Mass Index) 30.3 kg/m2 11/06/2018 9:21am Height 69 inches 5'9" Weight 210.00 lb BP Systolic Sitting 160 mmHg BP Diastolic Sitting 108 mmHg Pain Level 6 BMI (Body Mass Index) 31.0 kg/m2 Results Test Date Facility Test Result H/L Range Note Laboratory test 09/23/2018 Point of 109 mg/dL High 70-[address] [place] [address] [phone] DBX 0.5 09/22/2018 DBX 0.5 SEE RESULTS 2, [address] [place] <[place] [address] NOTE> [phone] CBC No Diff 09/12/2018 White Blood 10.3 10^3/uL Normal 3.5-10.[address] [place] [address] [phone] Red Blood Count 4.36 10^6/uL Normal 4.18-5.48 Hemoglobin 13.5 g/dL Low 14.0-18.0 Hematocrit 40 % Low 42-52 Mean Corpuscular Volume 92 fL Normal 80-94 Mean Corpuscular Hemoglobin 31 pg Normal 27-31 Mean Corpuscular HGB Conc 34 g/dL Normal 31-36 Red Cell Distribution Width 14 % Normal 10.5-15 Platelet Count 291 10^3/uL Normal 150-450 Mean Platelet Volume 6.9 fL Low 7.4-10.4 Comp Metabolic 09/12/2018 Sodium 138 mmol/L Normal 135-[address] [place] [address] [phone] Potassium 3.8 mmol/L Normal 3.5-5.0 Chloride 104 mmol/L Normal 101-111 Co2 Carbon Dioxide 29 mmol/L Normal 22-32 Anion Gap 5 mmol/L Normal 2-11 Glucose 121 mg/dL High 70-100 Blood Urea Nitrogen 8 mg/dL Normal 6-24 Creatinine 1.01 mg/dL Normal 0.67-1.17 BUN/Creatinine Ratio 7.9 Low 8-20 Calcium 9.5 mg/dL Normal 8.6-10.3 Total Protein 6.7 g/dL Normal 6.4-8.9 Albumin 4.2 g/dL Normal 3.2-5.2 Globulin 2.5 g/dL Normal 2-4 Albumin/Globulin Ratio 1.7 Normal 1-3 Total Bilirubin 0.50 mg/dL Normal 0.2-1.0 Alkaline Phosphatase 70 U/L Normal 34-104 Alt 37 U/L Normal 7-52 Ast 24 U/L Normal 13-39 Egfr Non- 74.6 >60 Egfr 90.3 >60 5 Inr/Protime 09/12/2018 Inr 0.95 Normal 0.82-1.[address] [place] [address] [phone] Laboratory test 09/12/2018 Partial 31.4 Normal 26.0 -36.3 7 [address] [facility] [place] [address] Time PTT [phone] 1 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 2 CERVICAL DISC DISORDER, UNSPECIFIED, UNSPECIFIED C 3 SEE RESULTS BELOW [id number] DBX 0.5 TRANSFUSED 09/23/18 0803 4 AA 09/23 5 Because ethnic data is not always readily [...] 15-29 5 Kidney failure <15 (or dialysis) 6 Standard intensity warfarin therapeutic range: 2.0-3.0 High intensity warfarin therapeutic range: 2.5-3.5 7 AA 6/3 Procedures Date Code Description Status 09/23/2018 65200 Insertion Interbody Biomechanical Device; Each Interspace Completed 09/23/2018 43350 Insertion Interbody Biomechanical Device; Each Interspace Completed 09/23/2018 11823 Anterior Instrumentation 2-3 Vertebral Segments Completed 09/23/2018 84751 Anterior Instrumentation 2-3 Vertebral Segments Completed 09/23/2018 53723 arthrodesis,anterior interbody incl disc space Completed prep,discectomy,de 09/23/2018 89387 arthrodesis,anterior interbody incl disc space Completed prep,discectomy,de 09/23/2018 60865 Allograft For Spine Surgery,Structural (Bone Bank) Completed Medical Devices Description No Information Available Encounters Type Date Location Provider Dx Diagnosis Office Visit 10/28/2018 Orthopedic Rebecca Ramirez, Z96.652 Presence of left 9:45a [facility] artificial knee joint Z47.1 Aftercare following joint replacement surgery M25.562 Pain in left knee M25.462 Effusion, left knee Office Visit 09/02/2018 Neurosurgery Harrison Moss, M50.90 Cervical disc 10:40a [facility] disorder, unsp, unspecified cervical region M50.91 Cervical disc disorder, unspecified, high cervical region Office Visit 07/29/2018 1:15p Orthopedic Rebecca Ramirez, M25.662 Stiffness of left [facility] knee, not [facility] elsewhere classified Z96.652 Presence of left artificial knee joint Z47.1 Aftercare following joint replacement surgery M25.562 Pain in left knee M25.462 Effusion, left knee Assessments Date Code Description Provider 01/08/2019 Z48.89 Encounter for other specified surgical MADELEINE Ulloa aftercare 01/08/2019 M54.12 Cervical radiculopathy MADELEINE Ulloa 11/06/2018 Z48.89 Encounter for other specified surgical MADELEINE Ulloa aftercare 10/28/2018 Z96.652 Presence of left artificial knee joint Rebecca Ramirez M.D. 10/28/2018 Z47.1 Aftercare following joint replacement surgery Rebecca Ramirez M.D. 10/28/2018 M25.562 Pain in left knee Rebecca Ramirez M.D. 10/28/2018 M25.462 Effusion, left knee Rebecca Ramirez M.D. 10/09/2018 Z48.89 Encounter for other specified surgical Harrison Moss M.D. aftercare 09/24/2018 Z48.89 Encounter for other specified surgical Claudia Tenorio PA-C aftercare 09/23/2018 M50.91 Cervical disc disorder, unspecified, high STEFANIA Tuttle cervical region 09/23/2018 M50.91 Cervical disc disorder, unspecified, high Harrison Moss M.D. cervical region 09/03/2018 M50.90 Cervical disc disorder, unspecified, Harrison Moss M.D. unspecified cervical re 09/02/2018 M50.90 Cervical disc disorder, unspecified, Harrison Moss M.D. unspecified cervical re 09/02/2018 M50.91 Cervical disc disorder, unspecified, high Harrison Moss M.D. cervical region 07/29/2018 M25.662 Stiffness of left knee, not elsewhere Rebecca Ramirez M.D. classified 07/29/2018 Z96.652 Presence of left artificial knee joint Rebecca Ramirez M.D. 07/29/2018 Z47.1 Aftercare following joint replacement surgery Rebecca aRmirez M.D. 07/29/2018 M25.562 Pain in left knee Rebecca Ramirez M.D. 07/29/2018 M25.462 Effusion, left knee Rebecca Ramirez M.D. Plan of Treatment Future Appointment(s):02/24/2019 2:30 pm - MADELEINE Ulloa at [facility]01/08/2019 - Lizz Bernal PAZ48.89 Encounter for other specified surgical sdmxgviipU80.12 Radiculopathy, cervical region Functional Status Description No Information Available Mental Status Description No Information Available Referrals Refer to Reason for Referral Status Appt Date Created
[2019-02-16 14:00] VITALS: BP 170/96
[2019-02-16] MEDS ORDERED: Tetan/Diph/Pertus SYR(Tdap)* 0.5 ML SYR(BOOSTRIX) use SYR contains LATEX IM ONE (14:12)
--- NOTE | 2019-02-16 14:57 | UC ---
Bite Injury/Animal HPI - HPI Summary HPI Summary: dog bite to right hand puncture wound levy surface radial aspect--no bleeding no bone pain full rom - History of Current Complaint Chief Complaint: UCBiteInjury Stated Complaint: DOG BITE Time Seen by Provider: 02/16/19 13:54 Hx Obtained From: Patient Pain Intensity: 6 Pain Scale Used: 0-10 Numeric Onset/Duration: Sudden Onset, Lasting Hours Type of Bite: Pet Has Animal Been Immunized?: Yes Character: Puncture Aggravating Factor(s): Nothing Alleviating Factor(s): Nothing Associated Signs And Symptoms: Positive: Swelling Hx of Bite: Provoked by: - feeding Animal Available for Observation: Yes Animal Control Notified: Yes - Allergies/Home Medications Allergies/Adverse Reactions: Allergies Allergy/AdvReac Type Severity Reaction Status Date / Time amoxicillin Allergy Nausea And Verified 02/16/19 13:55 Vomiting DAIRY Allergy Severe "MY BACK Uncoded 02/16/19 13:55 GOES OUT" Home Medications: Home Medications Colchicine* [Colcrys*] 0.6 mg PO DAILY PRN 02/16/19 [History Confirmed 02/16/19] Losartan/Hydrochlorothiazide [Losartan-Hctz 50-12.5 mg Tab] 1 tab PO DAILY 02/16 [History Confirmed 02/16/19] PMH/Surg Hx/FS Hx/Imm Hx Previously Healthy: No - gout Cardiovascular History: Hypertension - Surgical History Surgical History: Yes Surgery Procedure, Year, and Place: 04/25/18 LEFT KNEE REPLACEMENT;. APPENDECTOMY - Family History Family History: Negative for colon CA. Uncle: liver CA. - Social History Occupation: Retired Lives: Alone Alcohol Use: Daily Alcohol Amount: 1 GLASS/DAY Substance Use Type: None Smoking Status (MU): Light Every Day Tobacco Smoker Type: Cigarettes Amount Used/How Often: 2 CIGS/DAY Length of Time of Smoking/Using Tobacco: 30 yrs Have You Smoked in the Last Year: Yes When Did the Patient Quit Smoking/Using Tobacco: 3 weeks ago, using nicotine patch Household Exposure Type: Cigarettes - Immunization History Most Recent Influenza Vaccination: 04/26/18 Most Recent Tetanus Shot: UNSURE Most Recent Pneumonia Vaccination: sometime in the past Review of Systems All Other Systems Reviewed And Are Negative: Yes Constitutional: Positive: Negative Skin: Positive: Other - pw from dog bite as described Eyes: Positive: Negative ENT: Positive: Negative Respiratory: Positive: Negative Cardiovascular: Positive: Negative Gastrointestinal: Positive: Negative Genitourinary: Positive: Negative Motor: Positive: Negative Neurovascular: Positive: Negative Musculoskeletal: Positive: Negative Neurological: Positive: Negative Psychological: Positive: Negative Is Patient Immunocompromised?: No Physical Exam Triage Information Reviewed: Yes Appearance: Well-Appearing, No Pain Distress, Well-Nourished Vital Signs: Initial Vital Signs Temp 99.6 F 02/16/19 13:56 Pulse 98 02/16/19 13:56 Resp 19 02/16/19 13:56 BP 170/96 02/16/19 13:56 Pulse Ox 95 02/16/19 13:56 Vital Signs Reviewed: Yes Eye Exam: Normal Eyes: Positive: Conjunctiva Clear ENT Exam: Normal ENT: Positive: Normal ENT inspection, Hearing grossly normal. Negative: Muffled voice, Hoarse voice, Dental tenderness Dental Exam: Normal Neck exam: Normal Neck: Positive: Supple, Nontender Respiratory Exam: Normal Respiratory: Positive: Chest non-tender, No respiratory distress, No accessory muscle use Cardiovascular Exam: Normal Cardiovascular: Positive: RRR, Pulses Normal, Brisk Capillary Refill Musculoskeletal Exam: Normal Musculoskeletal: Positive: Strength Intact, ROM Intact, No Edema Neurological Exam: Normal Neurological: Positive: Alert, Muscle Tone Normal Psychological Exam: Normal Skin: Positive: Other - puncture wound right hand rom n/m/c intact no bone discomfort Bite Injury Course/Dx - Course Course Of Treatment: soap and water wash dressing and danita wrap, updated tetanus, will rx doxycycline- -patient will follow with pcp - Differential Dx/Diagnosis Provider Diagnosis: Dog bite of right hand, Hypertension Discharge ED - Sign-Out/Discharge Documenting (check all that apply): Patient Departure All imaging exams completed and their final reports reviewed: No Studies - Discharge Plan Condition: Stable Disposition: HOME Prescriptions: DOXYcycline CAP(*) [DOXYcycline 100MG CAP(*)] 100 mg PO BID #20 cap Patient Education Materials: Animal Bite (ED), Acute Wound Care (ED), Hypertension (ED), Warm Compress or Soak (ED) Referrals: Duncan Waite DO [Primary Care Provider] - 1 Week (wound and bp check) - Billing Disposition and Condition Condition: STABLE Disposition: Home
== END 2019-02-16 14:28 | disposition home or self-care (01) ==
LOC: UCEAST 13:28
DX: S61.451A Open bite of right hand, initial encounter (principal); I10 Essential (primary) hypertension; F17.210 Nicotine dependence, cigarettes, uncomplicated; Z88.0 Allergy status to penicillin; Z91.011 Allergy to milk products; Z79.899 Other long term (current) drug therapy; W54.0XXA Bitten by dog, initial encounter; Y92.9 Unspecified place or not applicable
CPT/HCPCS: 90471; 90715; 99212; G0463

== ENCOUNTER 2019-04-01 13:23 | Emergency (ER) | payer BC ==
--- OUTSIDE RECORDS SUMMARY | 2019-04-01 13:30 | XMS REPORT | Continuity of Care Document ---
:1955 External Reference #:[id number] Author Name Duncan Waite D.O. Address [address] [place] [address] Problems Active Problems Provider Date Mixed hyperlipidemia Duncan Waite D.O. Onset: 11/13/2013 Gastroesophageal reflux disease Duncan Waite D.O. 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 Onset: 2013 factor Anxiety state Duncan Waite D.O. Onset: 07/30/2014 Sacral radiculopathy Duncan Waite D.O. Onset: 03/08/2015 Essential hypertension Duncan Waite D.O. Onset: 05/28/2018 Social History Type Date Description Comments Sex Unknown Tobacco Use Start: Unknown current cigarette quit for surgery - smoker plans to restart ETOH Use One Beer Daily ETOH Use daily 2 glasses recently having 2 rums daily. Recreational Drug Use Denies Drug Use Tobacco Use Reviewed: 04/09/18 Patient is a current 2 cigarettes a day as smoker, smokes every well as e-cigarette day daily Recreational Drug Use Denies Drug Use Smoking Status Reviewed: 03/03/19 Patient is a current 2 cigarettes a day as smoker, smokes every well as e-cigarette day daily Exercise Type/Frequency Exercises regularly Sun Exposure Uses sunscreen Seat Belt/Car Seat Seat Belt Use - Yes Allergies, Adverse Reactions, Alerts Description No Known Drug Allergies Medications Active Medications SIG Qnty Indications Ordering Date Provider Gabapentin 1 by mouth at 360caps M50.01 Duncan Waite, 03/03/2019 300mg night for 1 week D.O. Capsules then 1 bid x 1 wk then 1 tid x 1 week then 1 in morning 1 at noon and 2 at night. Mirtazapine 15 mg orally once 90tabs Duncan Waite, 03/03/2019 15mg daily, preferably D.O. Tablets in the evening prior to sleep. Losartan Potassium take 1 tablet 90tabs I10 Duncan Waite, 11/29/2018 daily in the D.O. 50mg Tablets morning for high blood pressure Colcrys 1 twice a day. 180tabs Duncan Waite, 11/29/2018 0.6mg Tablets D.O. Digestive Enzymes one tab po tid Unknown 05/27/2018 with each meal Tablets Omeprazole Take 1 Capsule By Unknown 40mg Mouth Once Daily Capsules DR Medications Administered in Office Medication SIG Qnty Indications Ordering Provider Date B12 Injection Duncan Waite D.O. 03/03/2019 Injection SC/Im Injections Duncan Waite D.O. 03/03/2019 Injection B12 Injection Nurse's Schedule 08/01/2018 Injection SC/Im Injections Nurse's Schedule 08/01/2018 Injection injection, kenalog, 10 mg Duncan Waite D.O. 10/05/2017 Injection SC/Im Injections Duncan Waite D.O[place] 06/29/2014 Injection Immunizations CPT Code Status Date Vaccine Lot # [id number] Given 05/02/2016 Influenza Virus Vaccine, Quadrivalent, Split, [id number] Preservative Free [id number] Given 07/30/2014 Hep A, Adult [id number] 75069 Given 03/02/2014 Adacel or Boostrix, TDaP [id number] Given 03/02/2014 Flu, Split Virus 3Yrs [id number] 11624 Given 02/27/2013 Flu, Split Virus 3Yrs [id number] 64737 Given 06/27/2004 Td Immunization [id number] Refused 03/03/2019 Influenza Virus Vaccine, Quadrivalent, Split, Preservative Free Vital Signs Date Vital Result Comment 03/03/2019 11:36am BP Systolic 152 mmHg BP Diastolic 90 mmHg Weight 207.00 lb 11/29/2018 3:28pm BP Systolic 142 mmHg BP Diastolic 88 mmHg Weight 223.00 lb with shoes Results Test Acquired Date Facility Test Result H/L Range Note Laboratory test 03/03/2019 [facility] TSH 1.67 Normal 0.34-5.60 finding [phone] (Thyroid mcIU/mL Stim Horm) Vitamin B12 401 pg/mL Normal 180-914 1 Folic Acid (Folate) 8.70 ng/mL >3.99 Magnesium 2.0 mg/dL Normal 1.9-2.7 Phosphorus 3.7 mg/dL Normal 2.5-5.0 Comp Metabolic Panel 03/03/2019 [facility] Sodium 141 mmol/L Normal 135-145 [phone] Potassium 4.8 mmol/L Normal 3.5-5.0 Chloride 104 mmol/L Normal 101-111 Co2 Carbon Dioxide 31 mmol/L Normal 22-32 Anion Gap 6 mmol/L Normal 2-11 Glucose 105 mg/dL High 70-100 Blood Urea Nitrogen 9 mg/dL Normal 6-24 Creatinine 0.97 mg/dL Normal 0.67-1.17 BUN/Creatinine Ratio 9.3 Normal 8-20 Calcium 9.9 mg/dL Normal 8.6-10.3 Total Protein 7.0 g/dL Normal 6.4-8.9 Albumin 4.3 g/dL Normal 3.2-5.2 Globulin 2.7 g/dL Normal 2-4 Albumin/Globulin Ratio 1.6 Normal 1-3 Total Bilirubin 0.40 mg/dL Normal 0.2-1.0 Alkaline Phosphatase 82 U/L Normal 34-104 Alt 46 U/L Normal 7-52 Ast 28 U/L Normal 13-39 Egfr Non- 78.2 >60 Egfr 94.6 >60 2 Laboratory test 03/03/2019 [facility] Hemoglobin A1c 6.2 % High 4.0- 5.6 3 finding [phone] (Glyco HGB) Uric Acid 5.3 mg/dL Normal 4.4-7.6 CBC Auto Diff 03/03/2019 [facility] White Blood 10.5 10^3/uL Normal 3.5-10.8 [phone] Count Red Blood Count 4.78 10^6/uL Normal 4.18-5.48 Hemoglobin 15.4 g/dL Normal 14.0-18.0 Hematocrit 44 % Normal 42-52 Mean Corpuscular Volume 92 fL Normal 80-94 Mean Corpuscular Hemoglobin 32 pg High 27-31 Mean Corpuscular HGB Conc 35 g/dL Normal 31-36 Red Cell Distribution Width 13 % Normal 10-15 Platelet Count 289 10^3/uL Normal 150-450 Mean Platelet Volume 7.0 fL Low 7.4-10.4 Abs Neutrophils 7.4 10^3/uL Normal 1.5-7.7 Abs Lymphocytes 2.1 10^3/uL Normal 1.0-4.8 Abs Monocytes 0.8 10^3/uL Normal 0-0.8 Abs Eosinophils 0.1 10^3/uL Normal 0-0.6 Abs Basophils 0.1 10^3/uL Normal 0-0.2 Abs Nucleated RBC 0.0 10^3/uL Granulocyte % 70.1 % Lymphocyte % 20.0 % Monocyte % 7.8 % Eosinophil % 1.3 % Basophil % 0.8 % Nucleated Red Blood Cells % 0.0 Laboratory test 09/23/2018 [facility] Point of 109 mg/dL High 70-100 4 finding [phone] Care Glucose Laboratory test 09/22/2018 [facility] DBX 0.5 SEE RESULTS 5, 6 finding [phone] BELO <SEE NOTE> Comp Metabolic 09/12/2018 [facility] Sodium 138 mmol/L Normal 135- 145 7 Panel [phone] Potassium 3.8 mmol/L Normal 3.5-5.0 Chloride 104 [...] Egfr Non- 74.6 >60 Egfr 90.3 >60 8 Laboratory test 09/12/2018 [facility] Partial 31.4 seconds Normal 26.0-36.3 9 finding [phone] Thrombo Time PTT Inr/Protime 09/12/2018 [facility] Inr 0.95 Normal 0.82-1.09 10 [phone] CBC No Diff 09/12/2018 [facility] White Blood 10.3 10^3/uL Normal 3.5 -10.8 [phone] Count Red Blood Count 4.36 10^6/uL Normal 4.18-5.48 Hemoglobin 13.5 g/dL Low 14.0-18.0 Hematocrit 40 % Low 42-52 Mean Corpuscular Volume 92 fL Normal 80-94 Mean Corpuscular Hemoglobin 31 pg Normal 27-31 Mean Corpuscular HGB Conc 34 g/dL Normal 31-36 Red Cell Distribution Width 14 % Normal 10.5-15 Platelet Count 291 10^3/uL Normal 150-450 Mean Platelet Volume 6.9 fL Low 7.4-10.4 Ua Inhouse 09/11/2018 In House Ua Glucose - 11 Ua Bilirubin - Ua Ketones - Ua Specific Agency 1.020 Ua Blood - Ua PH 6.0 Ua Protein 2+ Ua Urobilinogen - Ua Nitrite - Ua Leukocytes - 1 Normal Range 180 to 914 Indeterminate Range 145 to 180 Deficient Range <145 2 Because ethnic data is not always readily [...] 15-29 5 Kidney failure <15 (or dialysis) 3 Therapeutic target for the treatment of diabetes mellitus patients is <7% HBA1C, and in selective patients <6.0%. Please refer to [place] [employer] diabetic care guidelines for further information. 4 Uke Operator: [id number] 5 CERVICAL DISC DISORDER, UNSPECIFIED, UNSPECIFIED C 6 SEE RESULTS BELOW [id number] DBX 0.5 TRANSFUSED 09/23/18 0803 7 AA 09/23 8 Because ethnic data is not always [...] 5 Kidney failure <15 (or dialysis) 9 AA 09/23 10 Standard intensity warfarin therapeutic range: 2.0-3.0 High intensity warfarin therapeutic range: 2.5-3.5 11 void, clear, gold Procedures Date Code Description Status 03/03/2019 66347 SC/Im Injections Completed 11/29/2018 32330 Osteopathic Manipulative Treament 5-6 Body Regions Completed 09/11/2018 23978 Electrocardiogram Complete Completed 05/24/2012 99404140 Colonoscopy Completed Medical Devices Description No Information Available Encounters Type Date Location Provider Dx Diagnosis Office Visit 03/03/2019 Main Office Duncan Waite M50.01 Cervical disc 11:00a D.O. disorder with myelopathy, high cervical region I10 Essential (primary) hypertension M54.18 Radiculopathy, sacral and sacrococcygeal region Z98.1 Arthrodesis status F17.210 Nicotine dependence, cigarettes, uncomplicated F41.9 Anxiety disorder, unspecified Z96.652 Presence of left artificial knee joint R20.2 Paresthesia of skin E53.8 Deficiency of other specified B group vitamins Office Visit 11/29/2018 3:30p Main Office Duncan Waite M50.01 Cervical disc D.O. disorder with myelopathy, high cervical region I10 Essential (primary) hypertension M54.18 Radiculopathy, sacral and sacrococcygeal region Z98.1 Arthrodesis status F17.210 Nicotine dependence, cigarettes, uncomplicated M99.00 Segmental and somatic dysfunction of head region M99.01 Segmental and somatic dysfunction of cervical region M99.02 Segmental and somatic dysfunction of thoracic region M99.08 Segmental and somatic dysfunction of rib cage M99.07 Segmental and somatic dysfunction of upper extremity Office Visit 09/11/2018 8:00a Main Office Karynajan Tavares, Z01.818 Encounter for other P.A. preprocedural examination M50.01 Cervical disc disorder with myelopathy, high cervical region R20.0 Anesthesia of skin I10 Essential (primary) hypertension F43.23 Adjustment disorder with mixed anxiety and depressed mood M62.00 Separation of muscle (nontraumatic), unspecified site Z68.31 Body mass index (BMI) 31.0-31.9, adult Assessments Date Code Description Provider 03/03/2019 M50.01 Cervical disc disorder with myelopathy, high SopDuncan scott, D.O. cervical region 03/03/2019 I10 Essential (primary) hypertension Duncan Waite D.O. 03/03/2019 M54.18 Radiculopathy, sacral and sacrococcygeal SopDuncan scott, D.O. region 03/03/2019 Z98.1 Arthrodesis status Duncan Waite D.O. 03/03/2019 F17.210 Nicotine dependence, cigarettes, SopDuncan scott D.O. uncomplicated 03/03/2019 F41.9 Anxiety disorder, unspecified SopnayekDuncan D.O. 03/03/2019 Z96.652 Presence of left artificial knee joint Duncan Waite D.O. 03/03/2019 R20.2 Paresthesia of skin Duncan Waite D.O. 03/03/2019 E53.8 Deficiency of other specified B group Duncan Waite D.O. vitamins 11/29/2018 M50.01 Cervical disc disorder with myelopathy, high SopDuncan scott D.O. cervical region 11/29/2018 I10 Essential (primary) hypertension Duncan Waite D.O. 11/29/2018 M54.18 Radiculopathy, sacral and sacrococcygeal Duncan Waite D.O. region 11/29/2018 Z98.1 Arthrodesis status Duncan Waite D.O. 11/29/2018 F17.210 Nicotine dependence, cigarettes, Duncan Waite D.O. uncomplicated 11/29/2018 M99.00 Segmental and somatic dysfunction of head Duncan Waite D.O. region 11/29/2018 M99.01 Segmental and somatic dysfunction of cervical Duncan Waite D.O. region 11/29/2018 M99.02 Segmental and somatic dysfunction of thoracic Duncan Waite D.O. region 11/29/2018 M99.08 Segmental and somatic dysfunction of rib cage Duncan Waite D.O. 11/29/2018 M99.07 Segmental and somatic dysfunction of upper Duncan Waite D.O. extremity 09/11/2018 Z01.818 Encounter for other preprocedural examination Karyna Tavares P.A. 09/11/2018 M50.01 Cervical disc disorder with myelopathy, high Kayrna Tavares , P.A. cervical region 09/11/2018 R20.0 Anesthesia of skin Karyna Tavares P.A. 09/11/2018 I10 Essential (primary) hypertension Karyna Tavares, P.A. 09/11/2018 F43.23 Adjustment disorder with mixed anxiety and Karyna Tavares, P.AIdalia depressed mood 09/11/2018 M62.00 Separation of muscle (nontraumatic), Karyna Tavares, P.A. unspecified site 09/11/2018 Z68.31 Body mass index (BMI) 31.0-31.9, adult Kia Brantley.Yazan Plan of Treatment Future Appointment(s):06/03/2019 11:00 am - Duncan Waite D.O. at Main Cw[facility]0303/03/2019 - Duncan Waite D.O.M50.01 Cervical disc disorder with myelopathy, high cervical regionNew Medication:Gabapentin 300 mg - 1 by mouth at night for 1 week then 1 bid x 1 wk then 1 tid x 1 week then 1 in morning 1 at noon and 2 at night.Follow up:3 months Neck/Back pain, HTNI10 Essential ( primary) riovotxjgyffW47.18 Radiculopathy, sacral and sacrococcygeal fgeggzS82.1 Arthrodesis vfhobnU01.210 Nicotine dependence, cigarettes, rebqgiaqljenjF10.9 Anxiety disorder, obwdcqrrbtqR44.652 Presence of left artificial knee yfswdM12.2 Paresthesia of skinE53.8 Deficiency of other specified B group vitamins Functional Status Description No Information Available Mental Status Description No Information Available Referrals Description No Information Available
--- NOTE | 2019-04-01 13:45 | UC ---
Skin Complaint HPI - HPI Summary HPI Summary: 64 yo male presents with ?abscess. He tells me that for the last 2 days he has had a swollen red bump to his left lower soft tissue abdomen. Today seems to have "come to a head" and is much more painful. Underwear and pant waist constantly rubbing the area. No known hx of mrsa. No fever or chills. BP elevated today - pt has a dx of HTN. States this is an ongoing issue. He has not been having any headaches, dizziness, vision changes, SOB, chest pain, n/v, weakness, or numbness. - History of Current Complaint Chief Complaint: UCSkin Time Seen by Provider: 04/01/19 13:45 Stated Complaint: absess on stomache Hx Obtained From: Patient Onset/Duration: Gradual Onset Onset Severity: Mild Current Severity: Moderate Pain Intensity: 8 Pain Scale Used: 0-10 Numeric - Allergy/Home Medications Allergies/Adverse Reactions: Allergies Allergy/AdvReac Type Severity Reaction Status Date / Time amoxicillin Allergy Nausea And Verified 04/01/19 13:39 Vomiting DAIRY Allergy Severe "MY BACK Uncoded 04/01/19 13:39 GOES OUT" PMH/Surg Hx/FS Hx/Imm Hx Cardiovascular History: Hypertension - Surgical History Surgical History: Yes Surgery Procedure, Year, and Place: 04/25/18 - C3-4 DISCECTOMY W/ SOFAMOR CAGE PEEK/ZEVO - MR CONDITIONAL - 1.5T /SCAN IN NORMAL MODE - PRE CSP AP/LAT XRAY - PRE MRI;. LEFT KNEE REPLACEMENT;. APPENDECTOMY - Family History Family History: Negative for colon CA. Uncle: liver CA. - Social History Occupation: Employed Full-time Lives: With Family Alcohol Use: Daily Alcohol Amount: 1 GLASS/DAY Substance Use Type: None Smoking Status (MU): Light Every Day Tobacco Smoker Type: Cigarettes Amount Used/How Often: 2 CIGS/DAY Length of Time of Smoking/Using Tobacco: 30 yrs Have You Smoked in the Last Year: Yes When Did the Patient Quit Smoking/Using Tobacco: 3 weeks ago, using nicotine patch Household Exposure Type: Cigarettes - Immunization History Most Recent Influenza Vaccination: 04/26/18 Most Recent Tetanus Shot: UNSURE Most Recent Pneumonia Vaccination: sometime in the past Review of Systems All Other Systems Reviewed And Are Negative: No Constitutional: Positive: Negative Skin: Positive: Other - ?abscess abdomen Respiratory: Positive: Negative Cardiovascular: Positive: Negative Neurological: Positive: Negative Psychological: Positive: Negative Physical Exam - Summary Physical Exam Summary: GENERAL: NAD. WDWN. No pain distress. SKIN: LEFT lower abdomen soft tissue: 1.0cm abscess with moderate TTP and erythema that is raised 6mm. No streaking, bleeding, or active drainage. NECK: Supple. Nontender. No lymphadenopathy. CHEST: No accessory muscle use. Breathing comfortably and in no distress. CV: Pulses intact. Cap refill <2seconds NEURO: Alert. PSYCH: Age appropriate behavior. Triage Information Reviewed: Yes Vital Signs: Initial Vital Signs Temp 98.6 F 04/01/19 13:35 Pulse 85 04/01/19 13:35 Resp 18 04/01/19 13:35 BP 169/113 04/01/19 13:35 Pulse Ox 99 04/01/19 13:35 Vital Signs Reviewed: Yes Course/Dx - Course Course Of Treatment: The procedure was explained to the pt and all questions were answered. A time out was performed, witnessed, and signed. The area was cleansed with an alcohol pad. An 18G needle was used to aster the central most part of the abscess. Using manual pressure - copious yellow purulent material was expressed. Skin depressed. Homeostasis achieved. The wound was bandaged with telfa . Pt tolerated procedure well. Culture obtained. - Diagnoses Provider Diagnosis: Abscess of skin of abdomen Discharge ED - Sign-Out/Discharge Documenting (check all that apply): Patient Departure All imaging exams completed and their final reports reviewed: No Studies - Discharge Plan Condition: Stable Disposition: HOME Prescriptions: Cephalexin CAP* [Keflex CAP*] 500 mg PO TID #21 cap Patient Education Materials: Abscess (ED) Referrals: Duncan Waite DO [Primary Care Provider] - Additional Instructions: If you develop a fever, shortness of breath, chest pain, new or worsening symptoms - please call your PCP or go to the ED immediately. Your blood pressure was high at todays visit. Please see your primary provider within 4 weeks for recheck and re-evaluation. Change the band-aid daily until well healed - Billing Disposition and Condition Condition: STABLE Disposition: Home
[2019-04-01 13:50] VITALS: BP 180/110
--- NOTE | 2019-04-02 08:08 | UC ---
- Progress Note Progress Note: MRSA neg, Staph neg on cephalexin await sensitivity no change shravan Course/Dx - Diagnoses Provider Diagnoses: Abscess of skin of abdomen Discharge ED - Sign-Out/Discharge Documenting (check all that apply): Post-Discharge Follow Up All imaging exams completed and their final reports reviewed: No Studies - Discharge Plan Condition: Stable Disposition: HOME Prescriptions: Cephalexin CAP* [Keflex CAP*] 500 mg PO TID #21 cap Patient Education Materials: Abscess (ED) Referrals: Duncan Waite DO [Primary Care Provider] - Additional Instructions: If you develop a fever, shortness of breath, chest pain, new or worsening symptoms - please call your PCP or go to the ED immediately. Your blood pressure was high at todays visit. Please see your primary provider within 4 weeks for recheck and re-evaluation. Change the band-aid daily until well healed - Billing Disposition and Condition Condition: STABLE Disposition: Home
--- NOTE | 2019-04-04 17:02 | UC ---
- Progress Note Progress Note: Culture and sensitivity results reviewed. Grew out Staphylococcus lugdenensis. Patient had I&D and was placed on cephalexin. Not specifically tested in sensitivity but presumed to be sensitive. Nursing to contact patient. As long as symptoms are improving no change in plan of care is required. Follow up as previously directed. Course/Dx - Diagnoses Provider Diagnoses: Abscess of skin of abdomen Discharge ED - Sign-Out/Discharge Documenting (check all that apply): Post-Discharge Follow Up All imaging exams completed and their final reports reviewed: No Studies - Discharge Plan Condition: Stable Disposition: HOME Prescriptions: Cephalexin CAP* [Keflex CAP*] 500 mg PO TID #21 cap Patient Education Materials: Abscess (ED) Referrals: Duncan Waite DO [Primary Care Provider] - Additional Instructions: If you develop a fever, shortness of breath, chest pain, new or worsening symptoms - please call your PCP or go to the ED immediately. Your blood pressure was high at todays visit. Please see your primary provider within 4 weeks for recheck and re-evaluation. Change the band-aid daily until well healed - Billing Disposition and Condition Condition: STABLE Disposition: Home
== END 2019-04-01 14:35 | disposition home or self-care (01) ==
LOC: UCEAST 13:23
DX: L02.211 Cutaneous abscess of abdominal wall (principal); I10 Essential (primary) hypertension; F17.210 Nicotine dependence, cigarettes, uncomplicated; Z88.0 Allergy status to penicillin; Z91.011 Allergy to milk products
CPT/HCPCS: 10060; 87070; 87077; 87186; 87205; 87640; 87641; 99212; G0463

== ENCOUNTER 2021-03-12 22:12 | Inpatient (IN) ==
[2021-03-12] MEDS ORDERED: NS 0.9% 1000 ml BAG 1,000 ML IV ONE (23:17)
[2021-03-12 23:24] LABS: Hematocrit 41 % (42-52); Hemoglobin 13.8 g/dL (14.0-18.0); Mean Corpuscular HGB Conc 34 g/dL (31-36); Mean Corpuscular Hemoglobin 31 pg (27-31); Mean Corpuscular Volume 91 fL (80-94); Mean Platelet Volume 6.9 fL (7.4-10.4); Platelet Count 268 10^3/uL (150-450); Red Blood Count 4.48 10^6 /uL (4.18-5.48); Red Cell Distribution Width 14 % (10-15); White Blood Count 23.6 10^3/uL (3.5-10.8)
[2021-03-12 23:42] LABS: ALT 15 U/L (7-52); AST 16 U/L (13-39); Albumin 4.4 g/dL (3.2-5.2); Albumin/Globulin Ratio 1.5 (1-3); Alkaline Phosphatase 92 U/L (35-149); Anion Gap 13 mmol/L (2-11); Blood Urea Nitrogen 16 mg/dL (6-24); CO2 Carbon Dioxide 23 mmol/L (22-32); Calcium 10.3 mg/dL (8.6-10.3); Chloride 100 mmol/L (101-111); Glucose 172 mg/dL (70-100); Magnesium 2.2 mg/dL (1.9-2.7); Sodium 136 mmol/L (135-145); Total Protein 7.4 g/dL (6.4-8.9)
[2021-03-12] MEDS ORDERED: NS 0.9% 1000 ml BAG 2,000 ML IV ONE (23:56)
[2021-03-13] MEDS ORDERED: cefTRIAXone 1 gm/50 mL NS BAG 1 GM/50 ML BAG IV ONE (00:08)
[2021-03-13] MEDS ORDERED: Ondansetron 4 mg VIAL 2 MG/ML 2 ml VIAL IV ONE ×3 (00:09→08:15)
[2021-03-13 00:12] LABS: Troponin I 0.03 ng/mL (<0.03)
[2021-03-13 00:13] LABS: ABS Lymphocytes 0.8 10^3/ul (1.0-4.8); ABS Monocytes 1.1 10^3/ul (0-0.8); ABS Neutrophils 21.7 10^3/ul (1.5-7.7); Eosinophil % 0.1 %; Lymphocyte % 3.5 %; Nucleated Red Blood Cells % 0.2
[2021-03-13 00:24] LABS: Influenza A Molecular Negative (Negative); Influenza B Molecular Negative (Negative); Rapid COVID-19 Molecular Undetected (Undetected)
[2021-03-13 00:28] LABS: C Reactive Protein 34.42 mg/L (<8.01)
[2021-03-13 00:51] LABS: TSH Ultra Thyroid Stim Horm 1.69 mcIU/mL (0.34-5.60)
[2021-03-13 02:24] LABS: Urine Appearance Clear; Urine Bilirubin Negative (Negative); Urine Blood 1+ (Negative); Urine Color Yellow; Urine Glucose 3+(>=500 mg/dL) (Negative); Urine Ketones Negative (Negative); Urine Nitrite Negative (Negative); Urine Protein 1+(30 mg/dL) (Negative); Urine Specific Gravity 1.016 (1.002-1.030); Urine Urobilinogen Negative (Negative)
[2021-03-13 02:26] LABS: Urine Bacteria Absent (Absent); Urine Red Blood Cell Trace(0-2/hpf) (Absent); Urine White Blood Cell Trace(0-5/hpf) (Absent)
[2021-03-13] MEDS ORDERED: Acetaminophen IV 1 GM/100ML 100 ML IV ONE (05:19)
[2021-03-13 05:38] LABS: Amylase 35 U/L (29-103); Lipase 18 U/L (11.0-82.0)
[2021-03-13] MEDS ORDERED: Iodixanol (CONTRAST) 320 MG/ML 100 ML SDV IV ONE (06:01)
[2021-03-13] MEDS ORDERED: Dextrose 50% Syringe 50 ml 25 GM/50 ML SYRINGE IV PUSH PRN (06:23)
[2021-03-13 06:39] LABS: ABS Lymphocytes 1.6 10^3/ul (1.0-4.8); ABS Neutrophils 12.4 10^3/ul (1.5-7.7); Eosinophil % 0.2 %; Hematocrit 35 % (42-52); Hemoglobin 11.9 g/dL (14.0-18.0); Lymphocyte % 10.6 %; Mean Corpuscular HGB Conc 34 g/dL (31-36); Mean Corpuscular Hemoglobin 31 pg (27-31); Mean Corpuscular Volume 92 fL (80-94); Mean Platelet Volume 6.7 fL (7.4-10.4); Platelet Count 215 10^3/uL (150-450); Red Blood Count 3.79 10^6 /uL (4.18-5.48); Red Cell Distribution Width 14 % (10-15); White Blood Count 15.1 10^3/uL (3.5-10.8)
[2021-03-13 06:54] LABS: ALT 14 U/L (7-52); AST 18 U/L (13-39); Albumin 3.6 g/dL (3.2-5.2); Albumin/Globulin Ratio 1.4 (1-3); Alkaline Phosphatase 72 U/L (35-149); Anion Gap 6 mmol/L (2-11); Blood Urea Nitrogen 16 mg/dL (6-24); C Reactive Protein 60.11 mg/L (<8.01); CO2 Carbon Dioxide 26 mmol/L (22-32); Chloride 107 mmol/L (101-111); Globulin 2.6 g/dL (2-4); Glucose 107 mg/dL (70-100); Potassium 3.9 mmol/L (3.5-5.0); Sodium 139 mmol/L (135-145); Total Protein 6.2 g/dL (6.4-8.9)
[2021-03-13] MEDS: Heparin 5000 UNITS/ML 1 mL VIAL SUBCUT SCH ×3 (06:59→21:25)
[2021-03-13 07:06] LABS: Troponin I 0.07 ng/mL (<0.03)
[2021-03-13] MEDS: Lactated Ringers 1000 ml BAG 1,000 ML IV SCH ×2 (07:27→17:54)
[2021-03-13 12:12] LABS: Creatine Kinase 391 U/L (10-223)
[2021-03-13 12:29] LABS: Troponin I 0.07 ng/mL (<0.03)
[2021-03-13] MEDS ORDERED: Lidocaine 4% GEL 10 GM TUBE TOPICAL ONE (13:20)
[2021-03-13] MEDS: cefTRIAXone 1 gm/50 mL NS BAG 1 GM/50 ML BAG IVPB SCH (13:34)
[2021-03-13] MEDS ORDERED: Ondansetron 4 mg VIAL 2 MG/ML 2 ml VIAL IV PRN (17:25)
[2021-03-13 17:35] LABS: Urine Appearance Clear; Urine Bilirubin Negative (Negative); Urine Blood 2+ (Negative); Urine Color Yellow; Urine Glucose 3+(>=500 mg/dL) (Negative); Urine Ketones Negative (Negative); Urine Nitrite Negative (Negative); Urine Protein Negative (Negative); Urine Specific Gravity 1.026 (1.002-1.030); Urine Urobilinogen Negative (Negative)
[2021-03-13 17:44] LABS: Urine Bacteria Absent (Absent); Urine Red Blood Cell Trace(0-2/hpf) (Absent); Urine White Blood Cell Absent (Absent)
[2021-03-14] MEDS: Lactated Ringers 1000 ml BAG 1,000 ML IV SCH ×2 (04:31→13:51)
[2021-03-14] MEDS: Heparin 5000 UNITS/ML 1 mL VIAL SUBCUT SCH ×3 (05:26→21:51)
[2021-03-14 06:01] LABS: ABS Eosinophils 0.2 10^3/ul (0-0.6); ABS Neutrophils 6.3 10^3/ul (1.5-7.7); Eosinophil % 1.6 %; Hematocrit 33 % (42-52); Hemoglobin 11.4 g/dL (14.0-18.0); Lymphocyte % 20.7 %; Mean Corpuscular HGB Conc 35 g/dL (31-36); Mean Corpuscular Hemoglobin 32 pg (27-31); Mean Corpuscular Volume 91 fL (80-94); Mean Platelet Volume 6.5 fL (7.4-10.4); Platelet Count 176 10^3/uL (150-450); Red Blood Count 3.59 10^6 /uL (4.18-5.48); Red Cell Distribution Width 14 % (10-15); White Blood Count 9.5 10^3/uL (3.5-10.8)
[2021-03-14 06:15] LABS: Albumin 3.4 g/dL (3.2-5.2); Albumin/Globulin Ratio 1.4 (1-3); Calcium 8.9 mg/dL (8.6-10.3); Direct Bilirubin 0.1 mg/dL (0.03-0.18); Globulin 2.4 g/dL (2-4); Indirect Bilirubin 0.5 mg/dL (0.3-1.0); Potassium 3.8 mmol/L (3.5-5.0); Total Bilirubin 0.6 mg/dL (0.2-1.0); Total Protein 5.8 g/dL (6.4-8.9)
[2021-03-14 12:57] LABS: PSA Screening Total 1.713 ng/mL (0-4.000)
[2021-03-14] MEDS: cefTRIAXone 1 gm/50 mL NS BAG 1 GM/50 ML BAG IVPB SCH (13:50)
[2021-03-15] MEDS: Lactated Ringers 1000 ml BAG 1,000 ML IV SCH ×2 (01:31→12:16)
[2021-03-15] MEDS: Heparin 5000 UNITS/ML 1 mL VIAL SUBCUT SCH ×3 (05:24→21:34)
[2021-03-15 05:44] LABS: ABS Eosinophils 0.2 10^3/ul (0-0.6); ABS Lymphocytes 1.5 10^3/ul (1.0-4.8); ABS Monocytes 0.7 10^3/ul (0-0.8); ABS Neutrophils 4.4 10^3/ul (1.5-7.7); Eosinophil % 2.8 %; Hematocrit 36 % (42-52); Hemoglobin 12.3 g/dL (14.0-18.0); Lymphocyte % 22.3 %; Mean Corpuscular HGB Conc 34 g/dL (31-36); Mean Corpuscular Hemoglobin 32 pg (27-31); Mean Corpuscular Volume 92 fL (80-94); Mean Platelet Volume 7.3 fL (7.4-10.4); Nucleated Red Blood Cells % 0.1; Platelet Count 205 10^3/uL (150-450); Red Blood Count 3.89 10^6 /uL (4.18-5.48); Red Cell Distribution Width 14 % (10-15); White Blood Count 6.8 10^3/uL (3.5-10.8)
[2021-03-15 06:08] LABS: Blood Urea Nitrogen 12 mg/dL (6-24); CO2 Carbon Dioxide 24 mmol/L (22-32); Chloride 107 mmol/L (101-111); Glucose 91 mg/dL (70-100); Sodium 138 mmol/L (135-145)
[2021-03-15 06:14] LABS: Anion Gap 7 mmol/L (2-11)
[2021-03-15] MEDS: cefTRIAXone 1 gm/50 mL NS BAG 1 GM/50 ML BAG IVPB SCH (12:24)
[2021-03-16] MEDS: Lactated Ringers 1000 ml BAG 1,000 ML IV SCH (00:34)
[2021-03-16] MEDS: Heparin 5000 UNITS/ML 1 mL VIAL SUBCUT SCH (05:17)
[2021-03-16 05:31] LABS: ABS Eosinophils 0.3 10^3/ul (0-0.6); ABS Lymphocytes 1.7 10^3/ul (1.0-4.8); ABS Monocytes 0.7 10^3/ul (0-0.8); ABS Neutrophils 4.6 10^3/ul (1.5-7.7); Eosinophil % 3.6 %; Hematocrit 32 % (42-52); Hemoglobin 11.1 g/dL (14.0-18.0); Lymphocyte % 22.9 %; Mean Corpuscular HGB Conc 35 g/dL (31-36); Mean Corpuscular Hemoglobin 32 pg (27-31); Mean Corpuscular Volume 91 fL (80-94); Mean Platelet Volume 6.8 fL (7.4-10.4); Platelet Count 192 10^3/uL (150-450); Red Blood Count 3.53 10^6 /uL (4.18-5.48); Red Cell Distribution Width 14 % (10-15); White Blood Count 7.2 10^3/uL (3.5-10.8)
[2021-03-16 05:42] LABS: Calcium 9.1 mg/dL (8.6-10.3); Potassium 3.5 mmol/L (3.5-5.0); eGFR CKD-EPI 74.5 (>60)
[2021-03-16 13:35] VITALS: BP 145/74
== END 2021-03-16 16:00 | disposition home or self-care (01) | DRG 315 ==
LOC: ED 22:12 → EDHOLD 03-13 05:40 → SUATTDRO 03-13 05:40 → MED 03-13 09:33
PROVIDERS: ADMIT Student in an Organized Health Care Education/Training Program; ATTEND Internal Medicine